=== PATIENT | female | born 1980 | race Two or more races ===

== ENCOUNTER → 2016-10-23 | Outpatient (CLI) | payer OTHER ==
[~2016-10-23] MED LIST: ACET50TA PO; IBUP80TA PO; PRENATAL VITAMIN; VALT500T PO; VITAPRTA PO
--- NOTE | 2016-10-23 10:19 | REP ---
LUMBAR SPINE SERIES: Five views. HISTORY: Low back pain. Comparison study March 07, 2013. FINDINGS: Lumbar vertebral body heights are preserved. Alignment is normal. There is no evidence of spondylolysis or spondylolisthesis. Pedicles and posterior elements are intact. Sacrum and SI joints are intact. Bowel gas pattern is unremarkable. Psoas margins are symmetric. An IUD is noted in the in the pelvis. IMPRESSION: Negative lumbar spine radiographs.
== END ==
LOC: M CLY 08:12
PROVIDERS: ATTEND Family Medicine
DX: M54.17 Radiculopathy, lumbosacral region (principal)

== ENCOUNTER → 2016-10-23 | Outpatient (REF) | payer OTHER ==
[2016-10-23 11:34] LABS: BASO % 0.5 % (0.0-1.0); EOS # 0.1 K/mm3 (0.0-0.50); EOS % 1.6 % (0.0-3.0); LARGE UNSTAINED CELL # 0.1 K/mm3 (0.0-0.4); LYMPH # 1.5 K/mm3 (1.5-4.5); LYMPH % 23.9 % (24.0-44.0); MEAN CORPUSCULAR HEMOGLOBIN 28.3 pg (27.0-33.0); MEAN CORPUSCULAR HGB CONC 32.2 g/dl (32.0-36.5); MONO # 0.3 K/mm3 (0.0-0.8); MONO % 4.9 % (0.0-5.0); NEUTROPHILS # 4.3 K/mm3 (1.8-7.7); NEUTROPHILS % 67.1 % (36.0-66.0); PLATELET COUNT, AUTOMATED 249 k/mm3 (150-450); WHITE BLOOD COUNT 6.4 K/mm3 (4.0-10.0)
[2016-10-23 11:36] LABS: FOLATE 16.9 NG/ML (>5.4); VITAMIN B12 LEVEL 302 PG/ML (247-911)
[2016-10-23 11:40] LABS: ALBUMIN 4.3 GM/DL (3.2-5.2); ALBUMIN/GLOBULIN RATIO 1.59 (1.00-1.93); ALKALINE PHOSPHATASE 101 U/L (45-117); ALT/SGPT 23 U/L (12-78); ANION GAP 8 MEQ/L (8-16); AST/SGOT 12 U/L (15-37); BILIRUBIN,TOTAL 0.4 MG/DL (0.2-1.0); BLOOD UREA NITROGEN 13 MG/DL (7-18); CALCIUM LEVEL 9.9 MG/DL (8.5-10.1); CARBON DIOXIDE LEVEL 27 MEQ/L (21-32); CHLORIDE LEVEL 105 MEQ/L (98-107); CHOLESTEROL LEVEL 247 MG/DL (<200); CREATININE FOR GFR 0.83 MG/DL (0.55-1.02); GLOMERULAR FILTRATION RATE > 60.0 (>60); GLUCOSE, FASTING 91 MG/DL (70-105); POTASSIUM SERUM 4.1 MEQ/L (3.5-5.1); SODIUM LEVEL 140 MEQ/L (136-145); TRIGLYCERIDES LEVEL 186 MG/DL (<150)
== END | disposition home or self-care (01) ==
LOC: M SFHCCLAY 07:57
PROVIDERS: ATTEND Family Medicine
DX: D64.9 Anemia, unspecified (principal); Z13.220 Encounter for screening for lipoid disorders; R63.5 Abnormal weight gain

== ENCOUNTER 2016-12-03 11:52 | Emergency (ER) | payer OTHER ==
[~2016-12-03] VITALS: Ht 162.6 cm; Wt 88.9 kg
[2016-12-03] MEDS ORDERED: LAMI1TAB7 PO (12:39)
[2016-12-03] MEDS ORDERED: KLON0.5T PO (12:39)
[2016-12-03] MEDS ORDERED: PRAZ2CAP PO (12:39)
[2016-12-03] MEDS ORDERED: ZOLO100T PO (12:39)
[2016-12-03] MEDS ORDERED: METOCLOPRAMIDE INJ 10MG/2ML VIAL (J2765) IV ONE ×2 (14:00→16:00)
[2016-12-03 15:16] VITALS: BP 124/73
== END 2016-12-03 16:36 | disposition home or self-care (01) ==
LOC: M ED 13:07
DX: R51 Headache (principal); F41.9 Anxiety disorder, unspecified; F43.10 Post-traumatic stress disorder, unspecified; F17.200 Nicotine dependence, unspecified, uncomplicated; Z88.8 Allergy status to other drugs, medicaments and biological substances; Z88.6 Allergy status to analgesic agent; Z88.0 Allergy status to penicillin; Z79.899 Other long term (current) drug therapy
CPT/HCPCS: 96374; 96376; 99282; J2765

== ENCOUNTER 2017-01-12 18:23 | Emergency (ER) | payer OTHER ==
[~2017-01-12] VITALS: Ht 162.6 cm; Wt 88.0 kg
[~2017-01-12 18:23] MED LIST changes: +KLON0.5T PO; +LAMI1TAB7 PO; +PRAZ2CAP PO; +ZOLO100T PO
[2017-01-12] MEDS ORDERED: ALPRAZolam 0.25 MG TAB PO ONE (19:00)
[2017-01-12 19:40] VITALS: BP 134/71
--- NOTE | 2017-01-13 07:25 | ECGEPIP ---
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
== END 2017-01-12 20:04 | disposition home or self-care (01) ==
LOC: M ED 19:07
DX: F41.1 Generalized anxiety disorder (principal); Z87.891 Personal history of nicotine dependence; Z88.0 Allergy status to penicillin; Z88.8 Allergy status to other drugs, medicaments and biological substances; Z79.899 Other long term (current) drug therapy

== ENCOUNTER → 2017-01-15 | Outpatient (CLI) | payer OTHER ==
--- NOTE | 2017-01-15 19:29 | ECHO ---
DATE OF PROCEDURE: 01/15/2017 REFERRING PHYSICIAN: Sunny Caldera MD INDICATION: Mitral valve prolapse. HEIGHT: 163 cm WEIGHT: 88 kg DIMENSIONS: IVS: 0.9 LV: 4.7 LVPW: 1.0 LA: 3.8 Aorta: 3.3 FINDINGS: The study is of good technical quality. Left ventricle is of normal size and systolic function with estimated ejection fraction (EF) 60 to 65%. Right ventricle appears normal. Both atria appear normal. The aortic valve was poorly visualized but grossly appears normal. Mitral, tricuspid and pulmonic valves appear normal. No pericardial effusion is noted. Inferior vena cava is normal size. Aortic root, aortic arch and abdominal aorta were well seen and appear normal. Doppler interrogation reveals no aortic stenosis or insufficiency. There is trace mitral insufficiency and trace tricuspid insufficiency. Calculated pulmonary artery pressure was within normal limits. Pulmonic valve is functionally competent. Mitral inflow pattern and tissue Doppler imaging of mitral annulus reveal normal diastolic function. CONCLUSIONS: 1. Study is of good technical quality. 2. Normal left ventricle (LV) size, systolic and diastolic function. 3. No significant valvular disease. 4. Normal central venous pressure and likely normal pulmonary artery pressure. COMMENTS: Subacute bacterial endocarditis (SBE) prophylaxis is not recommended. Essentially normal echocardiogram. MTDD
== END ==
LOC: M CARPUL 08:21
PROVIDERS: ATTEND Internal Medicine Cardiovascular Disease
DX: Z86.79 Personal history of other diseases of the circulatory system (principal)

== ENCOUNTER 2017-02-03 19:23 | Emergency (ER) | payer OTHER ==
[~2017-02-03] VITALS: Ht 162.6 cm; Wt 87.1 kg
[2017-02-03] MEDS ORDERED: NORCOTAB PO (21:12)
[2017-02-03] MEDS ORDERED: NORCO 5/325MG TABLET (BULK FOR ED) PO ONE (21:15)
[2017-02-03 22:10] VITALS: BP 144/76
--- NOTE | 2017-02-04 07:56 | REP ---
Clinical: Trauma. Technique: AP, lateral, bilateral oblique views of the right ankle. Comparison: 09/11/2016. Findings: Marked lateral soft tissue swelling consistent with inversion injury. No acute fracture or dislocation. Joint spaces and ankle mortise are intact. Impression: Marked soft tissue swelling. No acute fracture dislocation. Signed by Terrence Jones MD 02/04/2017 07:47 A
== END 2017-02-03 22:12 | disposition home or self-care (01) ==
LOC: M ED 21:21
DX: S82.91XA Unspecified fracture of right lower leg, initial encounter for closed fracture (principal); S93.401A Sprain of unspecified ligament of right ankle, initial encounter; W19.XXXA Unspecified fall, initial encounter; Y92.019 Unspecified place in single-family (private) house as the place of occurrence of the external cause; Y93.89 Activity, other specified; Y99.8 Other external cause status; Z87.891 Personal history of nicotine dependence; Z79.899 Other long term (current) drug therapy; Z88.0 Allergy status to penicillin; Z88.6 Allergy status to analgesic agent

== ENCOUNTER 2017-04-20 18:17 | Emergency (ER) | payer OTHER ==
[~2017-04-20] VITALS: Ht 162.6 cm; Wt 85.9 kg
[~2017-04-20 18:17] MED LIST changes: +NORCOTAB PO
[2017-04-20] MEDS ORDERED: ZIPR20CA13 PO (18:40)
[2017-04-20 18:55] LABS: MEAN CORPUSCULAR HEMOGLOBIN 29.8 pg (27.0-33.0); MEAN CORPUSCULAR HGB CONC 33.8 g/dl (32.0-36.5); MEAN CORPUSCULAR VOLUME 88.2 fl (80.0-96.0); RED CELL DISTRIBUTION WIDTH 12.8 % (11.5-14.5); WHITE BLOOD COUNT 6.8 K/mm3 (4.0-10.0)
[2017-04-20 19:15] LABS: CONTROL LINE HCG INT CTR LINE PRESENT
[2017-04-20 19:30] LABS: ALBUMIN 4.6 GM/DL (3.2-5.2); ALBUMIN/GLOBULIN RATIO 1.92 (1.00-1.93); ALKALINE PHOSPHATASE 99 U/L (45-117); ALT/SGPT 19 U/L (12-78); ANION GAP 9 MEQ/L (8-16); AST/SGOT 10 U/L (15-37); BILIRUBIN,DIRECT 0.1 MG/DL (0.0-0.2); BILIRUBIN,TOTAL 0.5 MG/DL (0.2-1.0); BLOOD UREA NITROGEN 14 MG/DL (7-18); CALCIUM LEVEL 10.4 MG/DL (8.5-10.1); CARBON DIOXIDE LEVEL 27 MEQ/L (21-32); CHLORIDE LEVEL 104 MEQ/L (98-107); CREATININE FOR GFR 0.92 MG/DL (0.55-1.02); GLOMERULAR FILTRATION RATE > 60.0 (>60); GLUCOSE, FASTING 90 MG/DL (70-105); POTASSIUM SERUM 4.1 MEQ/L (3.5-5.1); SODIUM LEVEL 140 MEQ/L (136-145)
[2017-04-20 20:32] LABS: METHADONE URINE NEGATIVE (NEGATIVE)
[2017-04-20 20:38] VITALS: BP 119/77
== END 2017-04-20 20:36 | disposition home or self-care (01) ==
LOC: M ED 18:17
DX: F31.89 Other bipolar disorder (principal); F41.9 Anxiety disorder, unspecified; I34.0 Nonrheumatic mitral (valve) insufficiency; Z79.899 Other long term (current) drug therapy; Z88.0 Allergy status to penicillin; Z88.6 Allergy status to analgesic agent

== ENCOUNTER → 2017-05-10 | Outpatient (REF) | payer OTHER ==
[~2017-05-10] MED LIST changes: +LATU40TA PO; +OXYC1TAB23 PO; +PRAZ1CAP PO; +TRAZ50TA11 PO; +WELLTAB38 PO; +ZIPR20CA13 PO; +ZOLO50TA PO
== END ==
LOC: M LAB REF 17:59
PROVIDERS: ATTEND Advanced Practice Midwife
DX: Z01.419 Encounter for gynecological examination (general) (routine) without abnormal findings (principal); Z11.51 Encounter for screening for human papillomavirus (HPV)

== ENCOUNTER → 2017-05-17 | Outpatient (CLI) | payer OTHER ==
--- NOTE | 2017-05-17 13:23 | REP ---
PELVIC ULTRASOUND: Real-time sonographic evaluation of the pelvis performed utilizing transabdominal and endovaginal technique. The urinary bladder measures 4.7 x 3.8 x 5.7 cm. Uterus measures 8.1 x 4.4 x 4.8 cm. Endometrial thickness is approximately 8 mm maximally. There is an IUD present in the lower uterine segment and cervical canal. Ovaries appear normal in size and echotexture, right ovary measuring 2.8 x 2.2 x 1.8 cm and left ovary 2.1 x 2.0 x 3.4 cm. There is no adnexal mass or free fluid. There is no evidence of ovarian torsion, with blood flow seen in each ovary with duplex Doppler evaluation, RI right ovary 0.46 and left ovary 0.65. There is no ovarian cyst. There is no free fluid. IMPRESSION: IUD is present and appears to be located in the lower uterine segment and cervical canal. Otherwise negative pelvic ultrasound. Signed by Sammy Blancas MD 05/17/2017 05:21 P
== END ==
LOC: M RAD 11:28
PROVIDERS: ATTEND Advanced Practice Midwife
DX: R10.2 Pelvic and perineal pain (principal); N92.0 Excessive and frequent menstruation with regular cycle; Z97.5 Presence of (intrauterine) contraceptive device

== ENCOUNTER → 2017-05-20 | Outpatient (CLI) | payer OTHER ==
[2017-05-20 14:39] LABS: MEAN CORPUSCULAR HEMOGLOBIN 29.6 pg (27.0-33.0); MEAN CORPUSCULAR HGB CONC 33.4 g/dl (32.0-36.5); MEAN CORPUSCULAR VOLUME 88.5 fl (80.0-96.0); WHITE BLOOD COUNT 5.2 K/mm3 (4.0-10.0)
== END ==
LOC: M LAB 13:35
PROVIDERS: ATTEND Advanced Practice Midwife
DX: R53.82 Chronic fatigue, unspecified (principal)

== ENCOUNTER 2017-05-22 13:27 | Emergency (ER) | payer OTHER ==
[~2017-05-22] VITALS: Ht 162.6 cm; Wt 80.4 kg
[~2017-05-22 13:27] MED LIST changes: -LATU40TA PO; -OXYC1TAB23 PO; -PRAZ1CAP PO; -TRAZ50TA11 PO; -WELLTAB38 PO; -ZOLO50TA PO
[2017-05-22] MEDS ORDERED: TRAZ50TA11 PO (13:39)
[2017-05-22] MEDS ORDERED: KETOROLAC 60 MG/2 ML VIAL (J1885) IM ONE (14:15)
[2017-05-22] MEDS ORDERED: NORCO, ANEXSIA 5/325MG TABLET (HYDROcodone/ACETAMINOPHEN) PO ONE (14:15)
[2017-05-22] MEDS ORDERED: OXYC1TAB23 PO (14:24)
[2017-05-22 14:50] VITALS: BP 143/67
== END 2017-05-22 14:52 | disposition home or self-care (01) ==
LOC: M ED 13:27
DX: N93.8 Other specified abnormal uterine and vaginal bleeding (principal); I34.1 Nonrheumatic mitral (valve) prolapse; F41.9 Anxiety disorder, unspecified; F43.10 Post-traumatic stress disorder, unspecified; Z79.899 Other long term (current) drug therapy
CPT/HCPCS: 81025; 96372; 99283; J1885

== ENCOUNTER 2017-05-27 14:26 | Emergency (ER) | payer OTHER ==
[~2017-05-27] VITALS: Ht 162.6 cm; Wt 81.6 kg
[~2017-05-27 14:26] MED LIST changes: +OXYC1TAB23 PO; +TRAZ50TA11 PO
[2017-05-27] MEDS ORDERED: ZOLO50TA PO (14:45)
[2017-05-27] MEDS ORDERED: NS 1,000 ML IV ONE (17:45)
[2017-05-27 18:08] LABS: BASO % 0.2 % (0.0-1.0); EOS # 0.1 K/mm3 (0.0-0.50); EOS % 1.9 % (0.0-3.0); LARGE UNSTAINED CELL # 0.1 K/mm3 (0.0-0.4); LYMPH # 1.4 K/mm3 (1.5-4.5); LYMPH % 26.6 % (24.0-44.0); MEAN CORPUSCULAR HEMOGLOBIN 30.1 pg (27.0-33.0); MEAN CORPUSCULAR HGB CONC 34.7 g/dl (32.0-36.5); MEAN CORPUSCULAR VOLUME 86.7 fl (80.0-96.0); MONO # 0.2 K/mm3 (0.0-0.8); MONO % 3.9 % (0.0-5.0); NEUTROPHILS # 3.3 K/mm3 (1.8-7.7); NEUTROPHILS % 65.5 % (36.0-66.0); PLATELET COUNT, AUTOMATED 271 k/mm3 (150-450); RED CELL DISTRIBUTION WIDTH 12.7 % (11.5-14.5); WHITE BLOOD COUNT 5.1 K/mm3 (4.0-10.0)
[2017-05-27 18:23] LABS: CONTROL LINE HCG INT CTR LINE PRESENT
[2017-05-27 18:32] LABS: ALT/SGPT 19 U/L (12-78); ANION GAP 9 MEQ/L (8-16); AST/SGOT 9 U/L (15-37); BLOOD UREA NITROGEN 10 MG/DL (7-18); CALCIUM LEVEL 9.7 MG/DL (8.5-10.1); CARBON DIOXIDE LEVEL 24 MEQ/L (21-32); CHLORIDE LEVEL 108 MEQ/L (98-107); CREATININE FOR GFR 0.74 MG/DL (0.55-1.02); GLOMERULAR FILTRATION RATE > 60.0 (>60); GLUCOSE, FASTING 82 MG/DL (70-105); POTASSIUM SERUM 4.3 MEQ/L (3.5-5.1); SODIUM LEVEL 141 MEQ/L (136-145)
[2017-05-27 18:33] LABS: ALBUMIN 4.2 GM/DL (3.2-5.2); ALKALINE PHOSPHATASE 74 U/L (45-117); BILIRUBIN,DIRECT 0.1 MG/DL (0.0-0.2); BILIRUBIN,TOTAL 0.3 MG/DL (0.2-1.0)
--- NOTE | 2017-05-27 18:52 | REP ---
Clinical: Headache and altered mental status . Comparison: 05/26/2009 . Findings: The ventricles, sulci, and cisterns are normal in position and appearance. Blancas-white differentiation is maintained. No acute intracranial hemorrhage, mass/mass effect, pathology or trauma/injury. No evidence for acute infarction. No extra-axial fluid collection. Calvarium is intact. Paranasal sinuses and mastoid air cells are clear. Impression: Normal noncontrast head CT. No evidence for acute intracranial pathology or trauma/injury. Signed by Terrence Jones MD 05/27/2017 06:43 P
--- NOTE | 2017-05-27 18:57 | REP ---
Clinical: Chest pain. Altered mental status . Comparison: 05/26/2009 . Technique: PA and lateral. Findings: The mediastinum and cardiac silhouette are normal. The lung ruiz are clear and without acute consolidation, effusion, or pneumothorax. The skeletal structures are intact and normal. Impression: 1. No acute cardiopulmonary process. Signed by Terrence Jones MD 05/27/2017 06:48 P
[2017-05-27 19:36] VITALS: BP 138/89
[2017-05-27 19:38] LABS: METHADONE URINE NEGATIVE (NEGATIVE)
--- NOTE | 2017-05-28 21:05 | ECGEPIP ---
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
== END 2017-05-27 19:52 | disposition home or self-care (01) ==
LOC: M ED 14:26
DX: R53.83 Other fatigue (principal); R53.81 Other malaise; I34.0 Nonrheumatic mitral (valve) insufficiency; F41.9 Anxiety disorder, unspecified; F43.10 Post-traumatic stress disorder, unspecified; Z79.899 Other long term (current) drug therapy

== ENCOUNTER 2017-06-02 20:06 | Emergency (ER) | payer OTHER ==
[~2017-06-02] VITALS: Ht 162.6 cm; Wt 79.5 kg
[2017-06-02 20:06] VITALS: BP 157/90
[~2017-06-02 20:06] MED LIST changes: +ZOLO50TA PO
[2017-06-02] MEDS ORDERED: WELLTAB38 PO (20:16)
[2017-06-02] MEDS ORDERED: LATU40TA PO (20:16)
[2017-06-02 22:03] LABS: MEAN CORPUSCULAR HEMOGLOBIN 29.1 pg (27.0-33.0); MEAN CORPUSCULAR HGB CONC 32.7 g/dl (32.0-36.5); WHITE BLOOD COUNT 5.2 K/mm3 (4.0-10.0)
[2017-06-02 22:32] LABS: ALBUMIN 4.2 GM/DL (3.2-5.2); ALKALINE PHOSPHATASE 78 U/L (45-117); ALT/SGPT 18 U/L (12-78); ANION GAP 9 MEQ/L (8-16); AST/SGOT 10 U/L (15-37); BILIRUBIN,DIRECT < 0.1 MG/DL (0.0-0.2); BILIRUBIN,TOTAL 0.3 MG/DL (0.2-1.0); BLOOD UREA NITROGEN 8 MG/DL (7-18); CALCIUM LEVEL 9.6 MG/DL (8.5-10.1); CARBON DIOXIDE LEVEL 26 MEQ/L (21-32); CHLORIDE LEVEL 107 MEQ/L (98-107); CREATININE FOR GFR 0.79 MG/DL (0.55-1.02); GLOMERULAR FILTRATION RATE > 60.0 (>60); GLUCOSE, FASTING 89 MG/DL (70-105); POTASSIUM SERUM 3.9 MEQ/L (3.5-5.1); SODIUM LEVEL 142 MEQ/L (136-145)
[2017-06-02 22:50] LABS: METHADONE URINE NEGATIVE (NEGATIVE)
== END 2017-06-03 00:28 | disposition home or self-care (01) ==
LOC: M ED 20:06
DX: R41.0 Disorientation, unspecified (principal); F41.9 Anxiety disorder, unspecified; G43.909 Migraine, unspecified, not intractable, without status migrainosus; F43.10 Post-traumatic stress disorder, unspecified; Z87.891 Personal history of nicotine dependence; Z88.0 Allergy status to penicillin; Z88.8 Allergy status to other drugs, medicaments and biological substances; Z79.899 Other long term (current) drug therapy

== ENCOUNTER 2017-06-28 13:59 | Emergency (ER) | payer OTHER ==
[~2017-06-28] VITALS: Ht 162.6 cm; Wt 78.2 kg
[~2017-06-28 13:59] MED LIST changes: +LATU40TA PO; +WELLTAB38 PO
[2017-06-28] MEDS ORDERED: ZOLO100T PO (14:10)
[2017-06-28] MEDS ORDERED: LAMI1TAB7 PO (14:10)
[2017-06-28] MEDS ORDERED: PRAZ1CAP PO (14:10)
[2017-06-28 15:42] LABS: BASO % 0.4 % (0.0-1.0); EOS # 0.1 10^3/uL (0.0-0.50); EOS % 1.3 % (0.0-3.0); IMMATURE GRANULOCYTE % 0.3 % (0-0); LYMPH # 1.5 10^3/uL (1.5-4.5); LYMPH % 22.2 % (24.0-44.0); MEAN CORPUSCULAR HEMOGLOBIN 29.5 pg (27.0-33.0); MEAN CORPUSCULAR HGB CONC 33.4 g/dl (32.0-36.5); MEAN CORPUSCULAR VOLUME 88.2 fl (80.0-96.0); MONO # 0.5 10^3/uL (0.0-0.8); MONO % 6.6 % (0.0-5.0); NEUTROPHILS # 4.8 10^3/uL (1.8-7.7); NEUTROPHILS % 69.2 % (36.0-66.0); PLATELET COUNT, AUTOMATED 275 10^3/uL (150-450); RED CELL DISTRIBUTION WIDTH 12.8 % (11.5-14.5)
[2017-06-28 17:06] VITALS: BP 138/94
== END 2017-06-28 17:12 | disposition home or self-care (01) ==
LOC: M ED 13:59
DX: Z32.01 Encounter for pregnancy test, result positive (principal); Z3A.00 Weeks of gestation of pregnancy not specified; I34.1 Nonrheumatic mitral (valve) prolapse; F43.10 Post-traumatic stress disorder, unspecified; F41.0 Panic disorder [episodic paroxysmal anxiety]; F33.9 Major depressive disorder, recurrent, unspecified; Z79.899 Other long term (current) drug therapy; Z88.8 Allergy status to other drugs, medicaments and biological substances; Z88.0 Allergy status to penicillin

== ENCOUNTER 2017-07-05 08:25 | Emergency (ER) | payer OTHER ==
[~2017-07-05] VITALS: Ht 162.6 cm; Wt 77.3 kg
[~2017-07-05 08:25] MED LIST changes: +PRAZ1CAP PO
[2017-07-05 08:45] VITALS: BP 139/69
== END 2017-07-05 09:46 | disposition home or self-care (01) ==
LOC: M ED 08:25
DX: J02.9 Acute pharyngitis, unspecified (principal); Z88.8 Allergy status to other drugs, medicaments and biological substances; Z88.0 Allergy status to penicillin

== ENCOUNTER → 2017-07-08 | Outpatient (CLI) | payer OTHER ==
[2017-07-08 15:00] LABS: BASO % 0.3 % (0.0-1.0); EOS # 0.2 10^3/uL (0.0-0.50); EOS % 2.3 % (0.0-3.0); IMMATURE GRANULOCYTE % 0.4 % (0-0); LYMPH # 1.5 10^3/uL (1.5-4.5); LYMPH % 19.5 % (24.0-44.0); MEAN CORPUSCULAR HEMOGLOBIN 29.2 pg (27.0-33.0); MEAN CORPUSCULAR VOLUME 88.6 fl (80.0-96.0); MONO # 0.5 10^3/uL (0.0-0.8); MONO % 5.7 % (0.0-5.0); NEUTROPHILS # 5.6 10^3/uL (1.8-7.7); NEUTROPHILS % 71.8 % (36.0-66.0); PLATELET COUNT, AUTOMATED 301 10^3/uL (150-450); WHITE BLOOD COUNT 7.8 10^3/uL (4.0-10.0)
[2017-07-08 15:31] LABS: VITAMIN B12 LEVEL 294 PG/ML
[2017-07-08 15:32] LABS: ALBUMIN/GLOBULIN RATIO 1.43 (1.00-1.93); ALKALINE PHOSPHATASE 84 U/L (45-117); ALT/SGPT 20 U/L (12-78); ANION GAP 7 MEQ/L (8-16); AST/SGOT 9 U/L (15-37); BILIRUBIN,TOTAL 0.2 MG/DL (0.2-1.0); BLOOD UREA NITROGEN 10 MG/DL (7-18); CALCIUM LEVEL 9.5 MG/DL (8.5-10.1); CARBON DIOXIDE LEVEL 25 MEQ/L (21-32); CHLORIDE LEVEL 107 MEQ/L (98-107); CREATININE FOR GFR 0.64 MG/DL (0.55-1.02); ERYTHROCYTE SEDIMENTATION RATE 16 mm/hr (0-20); GLOMERULAR FILTRATION RATE > 60.0 (>60); GLUCOSE, FASTING 74 MG/DL (70-105); SODIUM LEVEL 139 MEQ/L (136-145); TOTAL PROTEIN 6.8 GM/DL (6.4-8.2)
[2017-07-08 16:54] LABS: FOLATE 14.7 NG/ML
[2017-07-09 10:47] LABS: ALBUMIN % 64.7 % (55.8-66.1); GAMMA GLOBULIN % 8.6 % (11.1-18.8)
== END ==
LOC: M LAB 14:31
PROVIDERS: ATTEND Psychiatry & Neurology Neurology
DX: R41.82 Altered mental status, unspecified (principal)

== ENCOUNTER → 2017-07-09 | Outpatient (REF) | payer OTHER | LOC: M LAB REF 12:52 | PROVIDERS: ATTEND Advanced Practice Midwife | DX: Z34.81 Encounter for supervision of other normal pregnancy, first trimester (principal); Z3A.00 Weeks of gestation of pregnancy not specified ==

== ENCOUNTER 2017-08-07 18:56 | Emergency (ER) | payer OTHER ==
[~2017-08-07] VITALS: Ht 162.6 cm; Wt 83.6 kg
[2017-08-07 18:57] VITALS: BP 134/76
[2017-08-07] MEDS ORDERED: ZOFR4TAB3 PO (19:04)
== END 2017-08-07 21:50 | disposition left against medical advice (07) ==
LOC: M ED 18:56
DX: Z53.21 Procedure and treatment not carried out due to patient leaving prior to being seen by health care provider (principal)

== ENCOUNTER → 2017-10-10 | Outpatient (CLI) | payer OTHER | LOC: M RAD 15:16 | DX: Z34.82 Encounter for supervision of other normal pregnancy, second trimester (principal); Z36.89 Encounter for other specified antenatal screening; Z3A.18 18 weeks gestation of pregnancy | CPT/HCPCS: 76811 ==

== ENCOUNTER → 2017-10-13 | Outpatient (CLI) | payer OTHER | LOC: M LAB 12:05 | DX: Z36.9 Encounter for antenatal screening, unspecified (principal) ==

== ENCOUNTER 2017-10-28 12:28 | Emergency (ER) | payer OTHER | END 2017-10-28 15:34 | disposition left against medical advice (07) | LOC: M ED 12:28 | DX: Z53.21 Procedure and treatment not carried out due to patient leaving prior to being seen by health care provider (principal) ==

== ENCOUNTER → 2017-12-16 | Outpatient (CLI) | payer OTHER ==
[2017-12-16 15:52] LABS: BASO % 0.3 % (0.0-1.0); EOS # 0.1 10^3/uL (0.0-0.50); EOS % 0.8 % (0.0-3.0); HEMATOCRIT 31.2 % (36.0-47.0); HEMOGLOBIN 10.1 g/dl (12.0-16.0); IMMATURE GRANULOCYTE % 0.7 % (0-3.0); LYMPH # 1.5 10^3/uL (1.5-4.5); LYMPH % 17.5 % (24.0-44.0); MEAN CORPUSCULAR HEMOGLOBIN 29.2 pg (27.0-33.0); MEAN CORPUSCULAR HGB CONC 32.4 g/dl (32.0-36.5); MEAN CORPUSCULAR VOLUME 90.2 fl (80.0-96.0); MONO # 0.4 10^3/uL (0.0-0.8); NEUTROPHILS # 6.5 10^3/uL (1.8-7.7); NEUTROPHILS % 75.7 % (36.0-66.0); PLATELET COUNT, AUTOMATED 237 10^3/uL (150-450); RED BLOOD COUNT 3.46 10^6/uL (4.00-5.40); RED CELL DISTRIBUTION WIDTH 13.6 % (11.5-14.5); WHITE BLOOD COUNT 8.6 10^3/uL (4.0-10.0)
[2017-12-16 16:23] LABS: GLUCOSE CHALLENGE TEST 1 HOUR 130 MG/DL (LESS THAN 140)
[2017-12-17 08:44] LABS: RH ONLY RHOGAM 1 1
== END ==
LOC: M LAB 14:16
DX: O09.523 Supervision of elderly multigravida, third trimester (principal)
CPT/HCPCS: 82950

== ENCOUNTER → 2017-12-27 | Outpatient (CLI) | payer OTHER ==
[2017-12-27 07:51] LABS: GLUCOSE, FASTING 88 MG/DL (LESS THAN 95)
[2017-12-27 09:02] LABS: 1 HR GLUCOSE 142 MG/DL (LESS THAN 180)
[2017-12-27 10:10] LABS: 2 HR GLUCOSE 138 MG/DL (LESS THAN 155)
[2017-12-27 11:27] LABS: 3 HR GLUCOSE 51 MG/DL (LESS THAN 140)
== END ==
LOC: M LAB 07:01
DX: O09.522 Supervision of elderly multigravida, second trimester (principal)

== ENCOUNTER 2018-01-07 16:55 | Outpatient (CLI) | payer OTHER ==
[2018-01-07] MEDS: PERCOCET 5MG/325MG TAB PO (18:49)
== END 2018-01-07 18:46 | disposition home or self-care (01) ==
LOC: M LDO 16:55
DX: Z04.3 Encounter for examination and observation following other accident (principal); O26.893 Other specified pregnancy related conditions, third trimester; M53.3 Sacrococcygeal disorders, not elsewhere classified; M25.551 Pain in right hip; W10.9XXA Fall (on) (from) unspecified stairs and steps, initial encounter; Y92.89 Other specified places as the place of occurrence of the external cause; Y93.89 Activity, other specified; Y99.8 Other external cause status; Z3A.31 31 weeks gestation of pregnancy

== ENCOUNTER → 2018-02-03 | Outpatient (REF) | payer OTHER | LOC: M LAB REF 02-04 13:02 | DX: Z34.83 Encounter for supervision of other normal pregnancy, third trimester (principal) ==

== ENCOUNTER 2018-02-06 19:33 | Outpatient (CLI) | payer OTHER | END 2018-02-07 00:30 | disposition home or self-care (01) | LOC: M LDO 19:33 | DX: O47.03 False labor before 37 completed weeks of gestation, third trimester (principal); Z3A.35 35 weeks gestation of pregnancy | CPT/HCPCS: 59025 ==

== ENCOUNTER 2018-02-09 12:41 | Outpatient (CLI) | payer OTHER | END 2018-02-09 14:00 | disposition home or self-care (01) | LOC: M LDO 12:41 | DX: O26.893 Other specified pregnancy related conditions, third trimester (principal); N89.8 Other specified noninflammatory disorders of vagina; Z3A.35 35 weeks gestation of pregnancy | CPT/HCPCS: 59025 ==

== ENCOUNTER 2018-02-24 20:24 | Outpatient (CLI) | payer OTHER | END 2018-02-24 21:40 | disposition home or self-care (01) | LOC: M LDO 20:24 | DX: O47.1 False labor at or after 37 completed weeks of gestation (principal); Z3A.37 37 weeks gestation of pregnancy | CPT/HCPCS: 59025 ==

== ENCOUNTER 2018-02-25 03:21 | Inpatient (IN) | payer OTHER ==
[2018-02-25] MEDS ORDERED: OXYTOCIN 30 UNITS IN 0.9% NaCl 500ML IV BAG (J2590) As Ordered (03:54)
[2018-02-25 03:57] LABS: HEMATOCRIT 36.2 % (36.0-47.0); HEMOGLOBIN 12.3 g/dl (12.0-15.5); MEAN CORPUSCULAR HEMOGLOBIN 29.9 pg (27.0-33.0); MEAN CORPUSCULAR VOLUME 87.9 fl (80.0-96.0); PLATELET COUNT, AUTOMATED 220 10^3/uL (150-450); RED BLOOD COUNT 4.12 10^6/uL (4.00-5.40); RED CELL DISTRIBUTION WIDTH 14.7 % (11.5-14.5); WHITE BLOOD COUNT 8.3 10^3/uL (4.0-10.0)
[2018-02-25] MEDS: OXYTOCIN DRIP 30 UNITS in APPROPRIATE DILUENT 1 EA IV (05:17)
[2018-02-25] MEDS ORDERED: MEASLES,MUMPS,RUBELLA VACCINE INJ (MMR-II) (90707) SC (05:30)
[2018-02-25] MEDS ORDERED: MOM 30ML SUSPENSION UDC PO (05:30)
[2018-02-25] MEDS ORDERED: DOCUSATE SODIUM 100 MG CAP PO (05:30)
[2018-02-25] MEDS ORDERED: ANUSOL HC CREAM 30GM TOP (05:30)
[2018-02-25] MEDS: LIDOCAINE 1% MDV 20ML VIAL INFIL (05:30)
[2018-02-25] MEDS ORDERED: DIBUCAINE 1% OINTMENT 30GM TOP (05:30)
[2018-02-25] MEDS ORDERED: METHYLERGONOVINE MALEATE 0.2 MG TAB PO (05:30)
[2018-02-25] MEDS: ACETAMINOPHEN 500 MG TAB PO ×2 (06:21→15:00)
[2018-02-25] MEDS: PRENATAL VITAMINS CHEWABLE TABLET PO (07:56)
[2018-02-25 14:43] LABS: FETAL SCREEN PROF. 1 1
[2018-02-25] MEDS: RHOGAM 300 MCG (1500 IU) INJ (J2790) IM (15:03)
[2018-02-25] MEDS: IBUPROFEN 800 MG TAB PO (19:49)
[2018-02-26] MEDS: IBUPROFEN 800 MG TAB PO (04:43)
[2018-02-26] MEDS: PRENATAL VITAMINS CHEWABLE TABLET PO (07:31)
== END 2018-02-26 11:00 | disposition home or self-care (01) | DRG 560 ==
LOC: M LDO 03:21 → M LDI 03:33 → M OBS 05:58
PROVIDERS: Obstetrics & Gynecology; Pediatrics
PROC: 10E0XZZ Delivery of Products of Conception, External Approach (ICD-10-PCS; principal; 2018-02-25)
PROC: 0HQ9XZZ Repair Perineum Skin, External Approach (ICD-10-PCS; 2018-02-25)
DX: O69.81X0 Labor and delivery complicated by cord around neck, without compression, not applicable or unspecified (principal); Z3A.38 38 weeks gestation of pregnancy; Z37.0 Single live birth; O70.0 First degree perineal laceration during delivery

== ENCOUNTER 2018-03-23 14:02 | Emergency (ER) | payer OTHER | END 2018-03-23 15:25 | disposition home or self-care (01) | LOC: M ED 14:02 | DX: K04.7 Periapical abscess without sinus (principal); I34.1 Nonrheumatic mitral (valve) prolapse; Z88.0 Allergy status to penicillin; Z88.8 Allergy status to other drugs, medicaments and biological substances | CPT/HCPCS: 99282 ==

== ENCOUNTER 2018-03-28 10:49 | Emergency (ER) | payer OTHER ==
[2018-03-28] MEDS: NORCO, ANEXSIA 5/325MG TABLET (HYDROcodone/ACETAMINOPHEN) PO (12:18)
== END 2018-03-28 12:33 | disposition home or self-care (01) ==
LOC: M ED 10:49
DX: K04.7 Periapical abscess without sinus (principal); K02.9 Dental caries, unspecified; Z88.0 Allergy status to penicillin; Z88.8 Allergy status to other drugs, medicaments and biological substances
CPT/HCPCS: 99283

== ENCOUNTER 2018-09-30 12:08 | Emergency (ER) | payer OTHER ==
[~2018-09-30] VITALS: Ht 162.6 cm; Wt 85.9 kg
[2018-09-30 12:08] VITALS: BP 133/80
[~2018-09-30 12:08] MED LIST changes: -ACET50TA PO; +APAP325T4 PO; +CLEO300C2 PO; +DOXY-350 PO; +MAPA500T2 PO; +MOTR200T44 PO; +PRENTAB9 PO; +TRAM50TA2 PO; +TRAZ-160 PO; -TRAZ50TA11 PO; +TYLE325T5 PO; +VALT1TAB PO; +ZOFR4TAB14 PO
[2018-09-30 14:14] LABS: INFLUENZA A AMPLIFICATION NEGATIVE (NEGATIVE); INFLUENZA B AMPLIFICATION NEGATIVE (NEGATIVE)
[2018-09-30] MEDS ORDERED: AFRI0.0511 (14:40)
[2018-09-30] MEDS ORDERED: MUCI600T37 PO (14:40)
[2018-09-30] MEDS ORDERED: BENZ200C70 PO (14:40)
== END 2018-09-30 14:49 | disposition home or self-care (01) ==
LOC: M ED 12:08
DX: J06.9 Acute upper respiratory infection, unspecified (principal); J32.9 Chronic sinusitis, unspecified; Z87.891 Personal history of nicotine dependence; Z88.0 Allergy status to penicillin; Z88.8 Allergy status to other drugs, medicaments and biological substances; Z79.2 Long term (current) use of antibiotics

== ENCOUNTER 2019-01-27 05:50 | Emergency (ER) | payer OTHER ==
[~2019-01-27] VITALS: Ht 162.6 cm; Wt 88.6 kg
[~2019-01-27 05:50] MED LIST changes: +AFRI0.0511; +BENZ200C70 PO; +HYDR-3715 PO; +MUCI600T37 PO; -NORCOTAB PO
[2019-01-27 06:27] LABS: BASO % 0.2 % (0.0-1.0); EOS # 0.2 10^3/uL (0.0-0.50); EOS % 3.8 % (0.0-3.0); HEMATOCRIT 31.1 % (36.0-47.0); HEMOGLOBIN 10.1 g/dl (12.0-15.5); LYMPH % 35.2 % (24.0-44.0); MEAN CORPUSCULAR HEMOGLOBIN 29.3 pg (27.0-33.0); MEAN CORPUSCULAR HGB CONC 32.5 g/dl (32.0-36.5); MEAN CORPUSCULAR VOLUME 90.1 fl (80.0-96.0); MONO # 0.4 10^3/uL (0.0-0.8); MONO % 6.5 % (0.0-5.0); NEUTROPHILS % 54.1 % (36.0-66.0); PLATELET COUNT, AUTOMATED 291 10^3/uL (150-450); RED BLOOD COUNT 3.45 10^6/uL (4.00-5.40); WHITE BLOOD COUNT 5.5 10^3/uL (4.0-10.0)
[2019-01-27 06:53] LABS: BLOOD UREA NITROGEN 11 MG/DL (7-18); CALCIUM LEVEL 8.9 MG/DL (8.5-10.1); CARBON DIOXIDE LEVEL 25 MEQ/L (21-32); CHLORIDE LEVEL 111 MEQ/L (98-107); CREATININE FOR GFR 0.77 MG/DL (0.55-1.30); GLOMERULAR FILTRATION RATE > 60.0 (>60); GLUCOSE, FASTING 105 MG/DL (70-100); POTASSIUM SERUM 3.9 MEQ/L (3.5-5.1); SODIUM LEVEL 142 MEQ/L (136-145)
[2019-01-27 06:55] LABS: HCG, SERUM QUALITATIVE NEGATIVE (NEGATIVE)
--- NOTE | 2019-01-27 08:10 | REP ---
Clinical: Pelvic pain. IUD placement. Technique: Transabdominal pelvic ultrasound followed by transvaginal examination for better evaluation of the endometrium and adnexa with color Doppler evaluation of the ovaries. Findings: Heterogeneous anteverted uterus measures 10.5 x 5.2 x 5.6 cm. Endometrial complex is thickened to 23 mm and appears somewhat irregular but without focal discrete abnormality identified. IUD is not visualized. Bilateral ovaries are normal in appearance and vascularity without evidence for torsion. Right ovary measures 2.3 x 2.0 x 2.4 cm; RI = 0.35. Left ovary measures 3.8 x 3.0 x 3.2 cm; RI = (venous flow identified). Small amount of free fluid in the pelvis is nonspecific. Impression: 1. Heterogeneous anteverted uterus with heterogeneous thickened endometrial complex. Findings may be related to menstrual cycle. 2. Normal bilateral ovaries without torsion. 3. IUD not identified. Electronically Signed by Terrence Jones MD 01/27/2019 08:01 A
--- NOTE | 2019-01-27 08:22 | REP ---
Clinical: Evaluate for IUD. Technique: Two supine views of the abdomen and pelvis. Findings: Bowel gas pattern is nonspecific. No organomegaly. Skeletal structures are intact and normal. Phleboliths noted in the pelvis. No O IUD or foreign body identified. Impression: No foreign body or IUD identified. Electronically Signed by Terrence Jones MD 01/27/2019 08:13 A
[2019-01-27 08:44] VITALS: BP 124/66
== END 2019-01-27 09:00 | disposition home or self-care (01) ==
LOC: M ED 05:50
DX: N93.9 Abnormal uterine and vaginal bleeding, unspecified (principal); F43.10 Post-traumatic stress disorder, unspecified; Z88.0 Allergy status to penicillin; Z88.8 Allergy status to other drugs, medicaments and biological substances

== ENCOUNTER 2019-01-28 09:39 | Inpatient (IN) | payer OTHER ==
[~2019-01-28] VITALS: Ht 162.6 cm; Wt 92.7 kg
[2019-01-28] MEDS ORDERED: NS 1,000 ML IV ONE (10:00)
[2019-01-28 10:23] LABS: BASO % 0.4 % (0.0-1.0); EOS # 0.1 10^3/uL (0.0-0.50); EOS % 2.2 % (0.0-3.0); HEMATOCRIT 26.9 % (36.0-47.0); HEMOGLOBIN 8.6 g/dl (12.0-15.5); LYMPH # 1.6 10^3/uL (1.5-4.5); LYMPH % 29.2 % (24.0-44.0); MEAN CORPUSCULAR HEMOGLOBIN 29.8 pg (27.0-33.0); MEAN CORPUSCULAR VOLUME 93.1 fl (80.0-96.0); MONO # 0.3 10^3/uL (0.0-0.8); NEUTROPHILS # 3.3 10^3/uL (1.8-7.7); NEUTROPHILS % 61.5 % (36.0-66.0); PLATELET COUNT, AUTOMATED 291 10^3/uL (150-450); RED BLOOD COUNT 2.89 10^6/uL (4.00-5.40); WHITE BLOOD COUNT 5.4 10^3/uL (4.0-10.0)
[2019-01-28 10:51] LABS: BLOOD UREA NITROGEN 7 MG/DL (7-18); CALCIUM LEVEL 9.2 MG/DL (8.5-10.1); CARBON DIOXIDE LEVEL 24 MEQ/L (21-32); CHLORIDE LEVEL 112 MEQ/L (98-107); CREATININE FOR GFR 0.72 MG/DL (0.55-1.30); GLOMERULAR FILTRATION RATE > 60.0 (>60); GLUCOSE, FASTING 96 MG/DL (70-100); POTASSIUM SERUM 3.9 MEQ/L (3.5-5.1); SODIUM LEVEL 141 MEQ/L (136-145)
[2019-01-28 10:53] LABS: HCG, SERUM QUALITATIVE NEGATIVE (NEGATIVE)
[2019-01-28] MEDS: LR 1,000 ML IV SCH ×3 (11:10→20:17)
[2019-01-28] MEDS: CONJUGATED ESTROGENS 25 MG VIAL (J1410) IV SCH ×3 (11:59→20:32)
[2019-01-28 14:00] VITALS: BP 113/60
[2019-01-28 16:00] VITALS: BP 114/55
[2019-01-28] MEDS ORDERED: PROMETHAZINE INJ 25 MG/ML VIAL (J2550) IV PRN (16:15)
[2019-01-28 20:00] VITALS: BP 115/66
[2019-01-28 20:16] LABS: HEMOGLOBIN 6.9 g/dl (12.0-15.5)
[2019-01-28] MEDS: ONDANSETRON 4MG/2ML VIAL (J2405) IV PRN (20:16)
[2019-01-28] MEDS ORDERED: ACETAMINOPHEN 500 MG TAB PO ONE (20:30)
[2019-01-28] MEDS ORDERED: diphenhydrAMINE INJ 50MG/ML VIAL (J1200) IV ONE (20:30)
--- NOTE | 2019-01-28 23:15 | HPE ---
DATE OF ADMISSION: 01/28/2019 The patient is a 38-year-old 8, para 5-1-2-6 presented to the ED with last menstrual period started on 01/16/2019. She haS been bleeding continuously since. She reports that she had heavy menses and clots throughout the duration of this menstrual cycle which have become much worse in the last 3 days. Evaluation yesterday in the ER on 01/27/19 with a hemoglobin of 10.1, hematocrit 31.1, platelets 291. On presentation today her platelets were 291, hemoglobin 8.6, hematocrit 26.9. She denies any pain with this menstrual cycle. PAST MEDICAL HISTORY depression, abnormal Pap, childhood varicella. PAST SURGICAL HISTORY: Prior D and C for missed , left shoulder surgery for assist as a child. FAMILY HISTORY: Mitral valve prolapse and bipolar. SOCIAL HISTORY The patient is single, however, she does have a significant other. She is a nonsmoker. Denies alcohol and drug use. Reports caffeine two cups daily and no regular exercise. History of HSV II. She did have a Mirena IUD in place that was inserted in April of 2018. She had of ultrasound in the ER yesterday that showed no IUD with an x-ray followup with no IUD in pelvis. Heterogeneous anteverted uterus with heterogeneous thickened endometrial complex. Normal ovaries. Endometrial thickness is 23 mm and appears somewhat irregular, but without focal abnormality. No IUD. ALLERGIES: LATEX, AMOXICILLIN and ASPIRIN. CURRENT MEDICATIONS Ferrous gluconate 325 mg daily in the a.m. OBJECTIVE Currently temperature 99.1, pulse 111, respirations 20, BP is 115/66. She is 100% oxygen on room air. Her abdomen is soft and nontender. Repeat hgb 6.8 ASSESSMENT 38-year-old woman with severe menorrhagia, thickened endometrial complex. PLAN Per consult with Dr. Frankie Cagle the patient is to be admitted, IV Premarin has been started. Bleeding has not decreased since IV Premarin. Will transfuse the patient 3 units of RBCs. She is to be nothing by mouth (npo) after midnight. The plan will be to take her to the operating room tomorrow likely for D and C. I did review risks, benefits and alternatives with the patient. All of her questions have been answered. She has been consented for blood products. Dr. Cagle will be in to see the patient in the morning. [facility]
[2019-01-29] VITALS (7 sets, daily range): BP systolic 101–146; BP diastolic 58–79
[2019-01-29] MEDS: ONDANSETRON 4MG/2ML VIAL (J2405) IV PRN ×2 (00:16→04:24)
[2019-01-29] MEDS: CONJUGATED ESTROGENS 25 MG VIAL (J1410) IV SCH ×2 (00:29→04:24)
[2019-01-29] MEDS: LR 1,000 ML IV SCH ×2 (04:24→11:46)
[2019-01-29 09:06] LABS: HEMATOCRIT 30.5 % (36.0-47.0); MEAN CORPUSCULAR HEMOGLOBIN 30.6 pg (27.0-33.0); MEAN CORPUSCULAR HGB CONC 33.1 g/dl (32.0-36.5); MEAN CORPUSCULAR VOLUME 92.4 fl (80.0-96.0); PLATELET COUNT, AUTOMATED 215 10^3/uL (150-450)
[2019-01-29 09:07] LABS: HEMOGLOBIN 10.1 g/dl (12.0-15.5)
[2019-01-29] MEDS ORDERED: dexameTHASONE 4 MG/ML 1ML VIAL (J1100) As Ordered ONE (13:57)
[2019-01-29] MEDS ORDERED: ONDANSETRON 4MG/2ML VIAL (J2405) As Ordered ONE (13:57)
[2019-01-29] MEDS ORDERED: fentaNYL 100 MCG/2 ML INJECTION (J3010) As Ordered ONE (13:57)
[2019-01-29] MEDS ORDERED: MIDAZOLAM INJ 2 MG/2 ML VIAL (J2250) As Ordered ONE (13:57)
[2019-01-29] MEDS ORDERED: PROPOFOL 200 MG/20 ML VIAL As Ordered ONE (13:57)
[2019-01-29] MEDS ORDERED: LIDOCAINE 2% INJ 100 MG/5 ML SDV (FOR ANES.) As Ordered ONE (13:57)
[2019-01-29] MEDS ORDERED: fentaNYL 100 MCG/2 ML INJECTION (J3010) IV PRN (14:45)
[2019-01-29] MEDS ORDERED: ONDANSETRON 4MG/2ML VIAL (J2405) IV PRN (14:45)
[2019-01-29] MEDS ORDERED: LR 1,000 ML IV SCH (14:45)
[2019-01-29] MEDS ORDERED: ACETAMINOPHEN 500 MG TAB PO PRN (15:45)
[2019-01-29] MEDS ORDERED: IBUPROFEN 800 MG TAB PO PRN (15:45)
[2019-01-29] MEDS ORDERED: MAPA500C PO (17:42)
[2019-01-29] MEDS ORDERED: IBUP1TAB7 PO (17:42)
--- NOTE | 2019-01-30 07:38 | DSES ---
DATE OF ADMISSION: 01/28/2019 DATE OF DISCHARGE: 01/29/2019 38-year-old GAP5-1-2-6 female who presents to the ER with heavy bleeding. She is passing clots. This started with the onset of period on 01/16/2019. She has been bleeding ever since. Her hemoglobin steadily dropped after multiple evaluations. On the day of admission her hemoglobin was 8.6 grams per deciliter. She continued to have heavy bleeding. Of note she did have a Mirena IUD in place of April 2018 however IUD was no longer present on evaluation and likely spontaneously passed. HOSPITAL COURSE: On 01/28/2019 the patient was admitted to [facility]. An ultrasound showed a 2.3 cm endometrial lining with no focal mass in the endometrium. Patient was treated with IV Premarin 25 mg every 4 hours in order to stop bleeding. She also received anti-emetics for the side effect of the IV Premarin. Bleeding did not slow down appreciably overnight. A repeat hemoglobin that same day was 6.9 grams/dL. Patient was then transfused 3 units of packed red blood cells. Following day the patient was considered for surgery. On 01/29/2019, she underwent for a hysteroscopy, dilatation and curettage procedure. Findings were normal endometrial cavity and by that time the bleeding had begun to stop. The dilatation and curettage specimen was sent to pathology. Following the surgery the patient's hemoglobin was 10.1 grams/dL. She was stable and without pain and bleeding was minimal. Decision was made to discharge the patient home. ADMISSION DIAGNOSIS: 38-year-old with abnormal uterine bleeding, severe anemia. DISCHARGE DIAGNOSIS: 38-year-old with abnormal uterine bleeding, severe anemia. PROCEDURE: Hysteroscopy dilatation and curettage. DISPOSITION: The patient will followup with Dr. Elam in 1-2 weeks to discuss buttermaker continuous churn plans.
--- NOTE | 2019-01-30 07:41 | RO ---
DATE OF PROCEDURE: 01/29/2019 PREPROCEDURE DIAGNOSIS: Abnormal uterine bleeding. POSTPROCEDURE DIAGNOSIS: Abnormal uterine bleeding. PROCEDURE: Hysteroscopy, dilation and curettage. SURGEON: Dr. Frankie Cagle GLOVE BRUSHER: ANESTHESIA: General endotracheal. ESTIMATED BLOOD LOSS: 20 mL. FINDINGS: Normal appearing endometrial cavity. DESCRIPTION OF PROCEDURE: The patient was taken to the operating room where general endotracheal anesthesia was induced. She was prepped and draped in sterile fashion in the dorsal lithotomy position. A speculum was placed in the vagina. The anterior lip of the cervix was grasped with a tenaculum. The cervix was dilated with tapered dilators. A diagnostic hysteroscope using normal saline as a distention media was placed through the internal os. Visualization of the endometrial cavity revealed the findings noted above. Sharp curettage was performed. All instruments were removed. Bleeding was minimal after the procedure. The bladder was emptied of 100 mL of urine. Sponge and instrument counts were correct.
== END 2019-01-29 18:20 | disposition home or self-care (01) | DRG 517 ==
LOC: M ED 09:39 → M ED INP 10:42 → M PED 13:39
PROVIDERS: ADMIT Advanced Practice Midwife; ATTEND Specialist
PROC: 30233N1 Transfusion of Nonautologous Red Blood Cells into Peripheral Vein, Percutaneous Approach (ICD-10-PCS; 2019-01-28)
PROC: 0UDB7ZZ Extraction of Endometrium, Via Natural or Artificial Opening (ICD-10-PCS; principal; 2019-01-29 13:00)
DX: N92.0 Excessive and frequent menstruation with regular cycle (principal); D64.9 Anemia, unspecified; Z88.0 Allergy status to penicillin; Z88.6 Allergy status to analgesic agent

== ENCOUNTER 2019-09-30 22:26 | Emergency (ER) | payer OTHER ==
[~2019-09-30] VITALS: Ht 162.6 cm; Wt 80.9 kg
[2019-09-30 22:26] VITALS: BP 159/95
[~2019-09-30 22:26] MED LIST changes: +IBUP1TAB7 PO; +MAPA500C PO; -TRAZ-160 PO; +TRAZ-252 PO
[2019-09-30] MEDS ORDERED: clonazePAM 0.5 MG TAB PO ONE (23:00)
[2019-09-30] MEDS ORDERED: MICR1TAB18 PO (23:02)
[2019-09-30 23:38] LABS: HEMOGLOBIN 12.9 g/dl (12.0-15.5); MEAN CORPUSCULAR HEMOGLOBIN 28.9 pg (27.0-33.0); MEAN CORPUSCULAR HGB CONC 31.5 g/dl (32.0-36.5); MEAN CORPUSCULAR VOLUME 91.7 fl (80.0-96.0); PLATELET COUNT, AUTOMATED 345 10^3/uL (150-450); RED BLOOD COUNT 4.47 10^6/uL (4.00-5.40); WHITE BLOOD COUNT 6.9 10^3/uL (4.0-10.0)
[2019-10-01 00:15] LABS: ALBUMIN 3.7 GM/DL (3.2-5.2); ALT/SGPT 20 U/L (12-78); BILIRUBIN,DIRECT < 0.1 MG/DL (0.0-0.2); BILIRUBIN,TOTAL 0.2 MG/DL (0.2-1.0); BLOOD UREA NITROGEN 11 MG/DL (7-18); CALCIUM LEVEL 9.5 MG/DL (8.5-10.1); CARBON DIOXIDE LEVEL 24 MEQ/L (21-32); CHLORIDE LEVEL 109 MEQ/L (98-107); CK-MB VALUE MASS 1.5 NG/ML (<3.6); CPK CREATINE PHOSPHOKINASE 82 U/L (26-192); FREE T4 0.94 NG/DL (0.76-1.46); GLOMERULAR FILTRATION RATE > 60.0 (>60); GLUCOSE, FASTING 95 MG/DL (70-100); MAGNESIUM LEVEL 2.7 MG/DL (1.8-2.4); MB/CK RELATIVE INDEX 1.83 (< OR =4); PHOSPHORUS LEVEL 2.4 MG/DL (2.5-4.9); POTASSIUM SERUM 4.3 MEQ/L (3.5-5.1); SODIUM LEVEL 140 MEQ/L (136-145); TOTAL PROTEIN 6.9 GM/DL (6.4-8.2); TROPONIN I < 0.02 NG/ML (< 0.10)
--- NOTE | 2019-10-01 06:36 | ECGEPIP ---
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
--- NOTE | 2019-10-01 11:19 | REP ---
Clinical: Chest pain and shortness of breath . Comparison: 05/27/2017 . Technique: PA and lateral. Findings: The mediastinum and cardiac silhouette are normal. The lung ruiz are clear and without acute consolidation, effusion, or pneumothorax. The skeletal structures are intact and normal. Impression: 1. No acute cardiopulmonary process. Electronically Signed by Terrence Jones MD 10/01/2019 04:55 A
== END 2019-10-01 02:49 | disposition home or self-care (01) ==
LOC: M ED 22:26
DX: F41.1 Generalized anxiety disorder (principal)

== ENCOUNTER → 2020-08-03 | Outpatient (REF) | payer MEDICAID ==
[~2020-08-03] MED LIST changes: +MICR1TAB18 PO
== END ==
LOC: M SFHCWAGY 17:07
PROVIDERS: ATTEND Obstetrics & Gynecology
DX: Z12.4 Encounter for screening for malignant neoplasm of cervix (principal)

== ENCOUNTER 2020-11-07 17:09 | Emergency (ER) | payer MEDICAID, OTHER ==
[~2020-11-07] VITALS: Ht 162.6 cm; Wt 84.2 kg
--- OUTSIDE RECORDS SUMMARY | 2020-11-07 17:16 | CCD ---
Author Author [facility] Organization [facility] Address Unknown Phone Unavailable Care Team Providers Care Associate Professor Plant Pathology Name Role Phone Demar Hutchison Unavailable PROBLEMS Type Condition ICD9-CM Code [id number] Code Onset Dates Condition S tatus SNOMED Code Notes Problem Anxiety disorder, unspecified F41.9 Active 23 5459966 Problem Major depressive disorder, single episode, unspecified F32.9 Active 80014771 Problem 11 weeks gestation of Z3A.11 Active 80739013 Problem Other cervical disc degeneration at C4-C5 level M5 0.321 Active 06768751 Problem Anxiety F41.9 Active 58683530 Problem Post traumatic stress disorder (PTSD) F43.10 Ac tive 23966552 Problem Mitral valve prolapse I34.1 Active 882257419 Problem Obesity (BMI 30.0-34.9) E66.9 Active 55690748 7564285 ALLERGIES Allergen (clinical drug ingredient) Drug/Non Drug Allergy do cumented on EMR Reaction Allergy Type Onset Date Status ziprasidone Geodon([facility] Code:[address]-14) mental status changes Drug Allergy Active Amoxicillin Hives Drug Allergy Active aspirin Aspirin(ND Code:[address]-80) Hives Drug Allergy Active ENCOUNTERS from 1980 to 2020-09-05 Encounter Location Date Provider Diagnosis [address] [address] Aug Demar Hutchison Obesity (BMI 30.0-34.9) E66.9 ; Major de pressive disorder, single episode, unspecified F32.9 ; Anxiety disorder, unspecified F41.9 ; Post traumatic stress disorder (PTSD) F43.10 and Other cervical disc degeneration at C4-C5 level M50.321 IMMUNIZATIONS Vaccine Route Administration Date Status Influenza (18 yrs & older) Flublok IM Intramuscular Aug 18, 2018 Administered SOCIAL HISTORY Tobacco Use: Social History Observation Description Date Details (start date - stop date) Former Smoker Sex Assigned At : Social History Observation Description Sex Assigned At Unknown Language: Question Answer Notes Languages spoken: Divehi Jehovah'S Witness: Question Answer Notes Jehovah'S Witness 13 Taoist No roman catholic beliefs that would impact health care. Sexual Hx: Question Answer Notes Had sex in the last 12 months (vaginal, oral, or anal)? Yes Have you ever had an STD? No Prevention Strategies discussed: Other with Men only Use protection? No Drug and Alcohol Question Answer Notes Total Score: 0 Interpretation: No problems reported Alcohol Screening: Question Answer Notes Did you have a drink containing alcohol in the past year? No Points 0 Interpretation Negative BMI Care Goal Follow-Up Question Answer Notes Above Normal BMI Follow-Up Dietary management educatio n, guidance, and counseling Tobacco Use: Question Answer Notes Are you a: former smoker How long has it been since you last smoked? 1-5 years REASON FOR REFERRAL No Information VITAL SIGNS Weight 204.4 lbs Aug, 2019 Height 5'4.5" in Aug, BMI 34.54 kg/m2 Aug, Heart Rate 103 /min Aug, 2019 Respiratory Rate 16 /min Aug, Temperature 98.2 degrees Fahrenheit Aug, Oximetry 100ra Aug, Blood pressure systolic 153 mm Hg Aug, 2019 Blood pressure diastolic 94 mm Hg Aug, MEDICATIONS Medication SIG (Take, Route, Frequency, Duration) Notes Start Da te End Date Status Vitamin B Complex - as directed Orally Active Loestrin 1.5/30 (21) 1.5-30 MG-MCG 1 tablet Orally Once a day Dec, Active Vitamin C 500 MG as directed Orally Active Phentermine HCl 37.5 MG 1 tablet Orally Once a day for 30 day(s) Active PROCEDURES No Information RESULTS No Results REASON FOR VISIT Patient here from rescheduled ER f/u, she has had a rough year- she states she l ost her house last year and her 19 year old son unexpectedly. She is trying to stay positive MEDICAL (GENERAL) HISTORY Type Description Date Medical History PTSD Medical History Anxiety Medical History Post depression Medical History Migraines Surgical History D&C Surgical History Cyst removal- left shoulder Goals Section No Information Health Concerns No Information MEDICAL EQUIPMENT No Information MENTAL STATUS No Information FUNCTIONAL STATUS No Information ASSESSMENTS Encounter Date Diagnosis Assessment Notes Treatment Notes Treatm ent Clinical Notes Aug, Obesity (BMI 30.0-34.9) (ICD-10 - E66.9) Patient Educated with: FLU Vaccine, Inactivated.pdf (FLU Vaccine, Inactivated.pdf) Will cont to monitor and she would like to trial phentermine again and plan to recheck in about 3 months. Pt is agreeable. Aug, Major depressive disorder, s benjamin episode, unspecified (ICD-10 - F32.9) She is doing remarkably well so will cont with home journaling and declines need for meds or psych at this time. Pt agreeable. At least 30 minutes spent in face time with pt. Aug, Anxiety disorder, unspecified (ICD-10 - F41.9) Currently okay, declines meds at this time. Aug, Post traumatic stress disorder (PTSD) (ICD-10 - F43.10) Currently okay. Aug, Other cervical disc degeneration at C4-C 5 level (ICD-10 - M50.321) Just monitor for now. PLAN OF TREATMENT Medication Medication Name Sig Start Date Stop Date Phentermine HCl 37.5 MG 1 tablet Orally Once a day for 30 day(s) Treatment Notes Assessment Notes Clinical Notes Obesity (BMI 30.0-34.9) Patient Educated with: FLU V accine, Inactivated.pdf (FLU Vaccine, Inactivated.pdf) Will cont to monitor and she would like to trial phentermine again and plan to recheck in about 3 months. Pt is agreeable. Major depressive disorder, single episode, unspecified She is doing remarkably well so will cont with home journaling and declines need for meds or psych at this time. Pt agreeable. At least 30 minutes spent in face time with pt. Anxiety disorder, unspecified Currently okay, declines meds at this time. Post traumatic stress disorder (PTSD) Cu rrently okay. Other cervical disc degeneration at C4-C5 level Just monitor for now. Next Appt Details 3 Months Reason: Provider Name:Demar Hutchison, 03:30:00 PM, [address] [place], [address], Insurance Providers Payer Name Payer Address Payer Phone Insured Name Patient Relati onship to Insured Coverage Start Date Coverage End Date MEDICAID [employer] [address] [facility] [id number] MONICA CAO self
--- OUTSIDE RECORDS SUMMARY | 2020-11-07 17:16 | CCD ---
Author Author [facility] Organization [facility] Address Unknown Phone Unavailable Care Team Providers Care Game Room Attendant Name Role Phone Elam, Odette Unavailable PROBLEMS Type Condition ICD9-CM Code XLY10-IP Code Onset Dates Condition S tatus SNOMED Code Notes Problem Anxiety disorder, unspecified F41.9 Active 23 1340946 Problem Obesity (BMI 30.0-34.9) E66.9 Active 61695469 7850579 Problem 11 weeks gestation of Z3A.11 Active 64649761 Problem Major depressive disorder, single episode, unspecified F32.9 Active 07923368 Problem Anxiety F41.9 Active 42519191 Problem Post traumatic stress disorder (PTSD) F43.10 Ac tive 33478958 Problem Mitral valve prolapse I34.1 Active 919672287 ALLERGIES Allergen (clinical drug ingredient) Drug/Non Drug Allergy do cumented on EMR Reaction Allergy Type Onset Date Status ziprasidone Geodon([facility] Code:[address]-97) mental status changes Drug Allergy Active Amoxicillin Hives Drug Allergy Active aspirin Aspirin(ND Code:[address]-07) Hives Drug Allergy Active ENCOUNTERS from 1980 to 2020-08-20 Encounter Location Date Provider Diagnosis [facility] [address] [place] [id number] Jul, Odette Elam Normal gynecologic e xamination Z01.419 IMMUNIZATIONS Vaccine Route Administration Date Status Influenza (18 yrs & older) Flublok IM Intramuscular Aug 18, 2018 Administered SOCIAL HISTORY Tobacco Use: Social History Observation Description Date Details (start date - stop date) Former Smoker Sex Assigned At : Social History Observation Description Sex Assigned At Unknown Language: Question Answer Notes Languages spoken: Turkish Spiritism: Question Answer Notes Spiritism 13 Confucianist No restorationism beliefs that would impact health care. Sexual [...] FOR REFERRAL No Information VITAL SIGNS Weight 215 lbs Jul, Height 5'4.5" in Jul, BMI 36.33 kg/m2 Jul, Blood pressure systolic 130 mm Hg Jul, Blood pressure diastolic 84 mm Hg Jul, MEDICATIONS Medication SIG (Take, Route, Frequency, Duration) Notes Start Da te End Date Status Loestrin 1.5/30 (21) 1.5-30 MG-MCG 1 tablet Orally Once a day Dec, Active PROCEDURES No Information RESULTS Component Value Reference Range PAP REQUEST FOR SERVICE Reviewed date:08/16/2020 10:34:39 Interpretation: Performing Lab:[facility], [facility] [address] [address] , ,[place] [address] REASON FOR VISIT ANNUAL MEDICAL (GENERAL) HISTORY Type Description Date Medical History PTSD Medical History Anxiety Medical History Post depression Medical History Migraines Surgical History D&C Surgical History Cyst removal- left shoulder Goals Section No Information Health Concerns No Information MEDICAL EQUIPMENT No Information MENTAL STATUS No Information FUNCTIONAL STATUS No Information ASSESSMENTS Encounter Date Diagnosis Assessment Notes Treatment Notes Treatm ent Clinical Notes Jul, Normal gynecologic examination (ICD-10 - Z01.419 ) PLAN OF TREATMENT Medication Medication Name Sig Start Date Stop Date Loestrin 1.5/30 (21) 1.5-30 MG-MCG 1 tablet Orally Once a day Dec, Treatment Notes Test Name Order Date THIN PREP PAP 2020-08-20 Next Appt Details prn Reason: Provider Name:Demar Hutchison, 11:00:00 AM, [address], [place], [address], Insurance Providers Payer Name Payer Address Payer Phone Insured Name Patient Relati onship to Insured Coverage Start Date Coverage End Date MEDICAID [employer] [address] [facility] [id number] MONICA CAO self
--- OUTSIDE RECORDS SUMMARY | 2020-11-07 17:17 | CCD ---
Author Author [facility] Organization [facility] Address Unknown Phone Unavailable Support Name Relationship Address Phone ESTHER HINDS Next Of Kin Unknown MONICA CAO Next Of Kin [address] [place] [address] JOHNNY PACHECO Next Of Kin - CORBY JORGE [address] [facility]* [place] [address] [facility] Next Of Kin [address] [place] [address] [facility]* Next Of Kin [address] [place] [address] [facility] [place] [address] LACHO ATKINSON Next Of Kin [address] [facility] [address] [place] [address] [facility] Next [place] Kin ? [place] [address] [facility] [employer] Next Of Kin [address] [place] [address] UE Next Of Kin Unknown Unavailable LOWES Next Of Kin [address] [place] [address] [employer] Next Of Kin [address] [place] [address] ESTHER ATKINSON Next Of Kin [address] [facility] [address] [place] [address] [place] [address] Jeff CAO Next Of Kin [address] [place] [address] Lacho Atkinson ECON [address] [facility] [address] [place] [id number] Unavailable Care Team Providers Care Custodian Supervisor Name Role Phone Rabago, C Amira PA Unavailable Unavailable Rabago, C Amira PA Unavailable Unavailable Rabago, C Amira PA Unavailable Unavailable Rabago, C Amira PA Unavailable Unavailable Rabago, C Amira PA Unavailable Unavailable Rabago, C Amira PA Unavailable Unavailable Rabago, C Amira PA Unavailable Unavailable Rabago, C Amira PA Unavailable Unavailable Rabago, C Amira PA Unavailable Unavailable Rabago, C Amira PA Unavailable Unavailable Rabago, C Amira PA Unavailable Unavailable Rabago, C Amira PA Unavailable Unavailable Rabago, C Amira PA Unavailable Unavailable Rabago, C Amira PA Unavailable Unavailable Rabago, C Amira PA Unavailable Unavailable Rabago, C Amira PA Unavailable Unavailable Rabago, C Amira PA Unavailable Unavailable Rabago, C Amira PA Unavailable Unavailable Rabago, C Amira PA Unavailable Unavailable Rabago, C Amira PA Unavailable Unavailable Rabago, C Amira PA Unavailable Unavailable Rabago, C Amira PA Unavailable Unavailable Rabago, C Amira PA Unavailable Unavailable [facility], EKOLB Unavailable Unavailable TURRIN, ARTEMIO Unavailable Unavailable TURRIN, ARTEMIO Unavailable Unavailable TURRIN, ARTEMIO Unavailable Unavailable TURRIN, ARTEMIO Unavailable Unavailable Juan Carlos GREER Unavailable Unavailable HUIZENGA, D HAMILTON DO Unavailable Unavailable HUIZENGA, D [place]AM[place] DO Unavailable Unavailable HUIZENGA, D [place]AMILTON DO Unavailable Unavailable HUIZENGA, D [place]AMILTON DO Unavailable Unavailable HUIZENGA, D HAMILTON DO Unavailable Unavailable HUIZENGA, D HAMILTON DO Unavailable Unavailable HUIZENGA, D [place] DO Unavailable Unavailable HUIZENGA, D [place]AMILTON DO Unavailable Unavailable HUIZENGA, D [place]AMILTON DO Unavailable Unavailable HUIZENGA, D [place] DO Unavailable Unavailable HUIZENGA, D [place] DO Unavailable Unavailable HUIZENGA, D [place] DO Unavailable Unavailable HUIZENGA, D [place] DO Unavailable Unavailable HUIZENGA, D [place] DO Unavailable Unavailable HUIZENGA, D [place] DO Unavailable Unavailable HUIZENGA, D [place] DO Unavailable Unavailable HUIZENGA, D [place] DO Unavailable Unavailable HUIZENGA, D [place] DO Unavailable Unavailable HUIZENGA, D [place] DO Unavailable Unavailable HUIZENGA, D [place] DO Unavailable Unavailable HUIZENGA, D [place] DO Unavailable Unavailable HUIZENGA, Korin VILLASENOR DO Unavailable Unavailable HUIZENGA, Korin VILLASENOR DO Unavailable Unavailable HUIZENGA, Korin VILLASENOR DO Unavailable Unavailable HUIZENGA, Korin VILLASENOR DO Unavailable Unavailable HUIZENGA, Korin VILLASENOR DO Unavailable Unavailable HUIZENGA, Korin VILLASENOR DO Unavailable Unavailable HUIZENGA, Korin VILLASENOR DO Unavailable Unavailable HUIZENGA, Korin VILLASENOR DO Unavailable Unavailable HUIZENGA, Korin VILLASENOR DO Unavailable Unavailable HUIZENGA, Korin VILLASENOR DO Unavailable Unavailable HUIZENGA, Korin VILLASENOR DO Unavailable Unavailable HUIZENGA, Korin VILLASENOR DO Unavailable Unavailable HUIZENGA, Korin VILLASENOR DO Unavailable Unavailable HUIZENGA, Korin VILLASENOR DO Unavailable Unavailable HUIZENGA, Korin VILLASENOR DO Unavailable Unavailable HUIZENGA, Korin VILLASENOR DO Unavailable Unavailable HUIZENGA, Korin VILLASENOR DO Unavailable Unavailable HUIZENGA, Korin VILLASENOR DO Unavailable Unavailable HUIZENGA, Korin VILLASENOR DO Unavailable Unavailable HUIZENGA, Korin VILLASENOR DO Unavailable Unavailable HUIZENGA, Korin VILLASENOR DO Unavailable Unavailable HUIZENGA, Korin VILLASENOR DO Unavailable Unavailable HUIZENGA, Korin VILLASENOR DO Unavailable Unavailable HUIZENGA, Korin VILLASENOR DO Unavailable Unavailable HUIZENGA, Korin VILLASENOR DO Unavailable Unavailable HUIZENGA, Korin VILLASENOR DO Unavailable Unavailable HUIZENGA, Korin VILLASENOR DO Unavailable Unavailable HUIZENGA, Korin VILLASENOR DO Unavailable Unavailable HUIZENGA, Korin VILLASENOR DO Unavailable Unavailable HUIZENGA, Korin VILLASENOR DO Unavailable Unavailable HUIZENGA, Korin VILLASENOR DO Unavailable Unavailable HUIZENGA, Korin VILLASENOR DO Unavailable Unavailable HUIZENGA, Korin VILLASENOR DO Unavailable Unavailable HUIZENGA, Korin VILLASENOR DO Unavailable Unavailable HUIZENGA, Korin VILLASENOR DO Unavailable Unavailable HUIZENGA, Korin VILLASENOR DO Unavailable Unavailable HUIZENGA, Korin VILLASENOR DO Unavailable Unavailable HUIZENGA, Korin VILLASENOR DO Unavailable Unavailable HUIZENGA, Korin VILLASENOR DO Unavailable Unavailable HUIZENGA, Korin VILLASENOR DO Unavailable Unavailable HUIZENGA, Korin VILLASENOR DO Unavailable Unavailable HUIZENGA, Korin VILLASENOR DO Unavailable Unavailable HUIZENGA, Korin VILLASENOR DO Unavailable Unavailable HUIZENGA, Korin VILLASENOR DO Unavailable Unavailable HUIZENGA, D [place] DO Unavailable Unavailable HUIZENGA, D [place] DO Unavailable Unavailable HUIZENGA, D [place] DO Unavailable Unavailable HUIZENGA, D [place] DO Unavailable Unavailable HUIZENGA, D [place] DO Unavailable Unavailable HUIZENGA, D [place]MA[place] DO Unavailable Unavailable HUIZENGA, D [place] DO Unavailable Unavailable HUIZENGA, D [place] DO Unavailable Unavailable VENERUS, Maki JACKSON MD Unavailable Unavailable VENERUS, Maki JACKSON MD Unavailable Unavailable VENERUS, Maik JACKSON MD Unavailable Unavailable VENERUS, J MANISH LEROY Unavailable Unavailable VENERUS, J MANISH LEROY Unavailable Unavailable VENERUS, J MANISH LEROY Unavailable Unavailable VENERUS, J MANISH LEROY Unavailable Unavailable VENERUS, J MANISH LEROY Unavailable Unavailable VENERUS, Maki JACKSON MD Unavailable Unavailable Re-disclosure Warning The records that you are about to access may contain information from federally-assisted alcohol or drug abuse programs. If such information is present, then the following federally mandated warning applies: This information has been disclosed to you from records protected by federal confidentiality rules (42 CFR part 2). The federal rules prohibit you from making any further disclosure of this information unless further disclosure is expressly permitted by the written consent of the person to whom it pertains or as otherwise permitted by 42 CFR part 2. A general authorization for the release of medical or other information is NOT sufficient for this purpose. The Federal rules restrict any use of the information to criminally investigate or prosecute any alcohol or drug abuse patient.The records that you are about to access may contain highly sensitive health information, the redisclosure of which is protected by Article 27-F of the [facility] Public Health law. If you continue you may have access to information: Regarding HIV / AIDS; Provided by facilities licensed or operated by the [facility] Office of Mental Health; or Provided by the [facility] Office for People With Developmental Disabilities. If such information is present, then the following [facility] mandated warning applies: This information has been disclosed to you from confidential records which are protected by state law. State law prohibits you from making any further disclosure of this information without the specific written consent of the person to whom it pertains, or as otherwise permitted by law. Any unauthorized further disclosure in violation of state law may result in a fine or mcfp sentence or both. A general authorization for the release of medical or other information is NOT sufficient authorization for further disc losure. Allergies and Adverse Reactions Type Description Substance Reaction Status Data Source(s ) Drug allergy AMOXICILLIN AMOXICILLIN [facility] CLASS ASA (aspirin) ASA (aspirin) [facility] Family History Family Member Name Family Member Gender Family Member Status Date o f Status Description Data Source(s) Unknown Unknown Problem MEDENT ([facility], ) mitral valve prolapse Encounters Encounter Providers Location Date Indications Data Source(s ) Emergency Attender: JEREMY GREERConsultant: HAMILTON SOLO DO 11/06/2020 02:03:00 PM EST - 11/06/2020 04:20:00 PM EST [facility] Patient discharged. Outpatient [address] [facility], [facility] [address] 09/01/2020 12:00:00 AM EST eCW1 ([facility]) Outpatient [address] [facility] [address] 08/03/2020 12:00:00 AM EST eCW1 ([facility]) Emergency Attender: ARTEMIO CASEYConsultant: HAMILTON MARTINEZ DO 08/01/2020 08:16:00 PM EST - 08/01/2020 09:31:00 PM EST [facility] Patient discharged. Unknown [address] [facility] [address] 07/28/2020 12:00:00 AM EST eCW1 ([facility]) Emergency Attender: MANISH GU MDConsultant: HAMILTON VALLE DO 07/22/2020 12:25:00 PM EDT - 07/22/2020 04:04:00 PM EDT [facility] Patient discharged. Outpatient Attender: [facility] 03/01/2020 07:49:06 PM EDT [facility] [address] [place] [address] 02/16/2020 12:00:00 AM EDT [facility]1 [facility] [address] [place] [address] 12/28/2019 12:00:00 AM EDT eCW1 ([facility]) Outpatient Referrer: Amira ORANTES 10/14/2019 07:07:00 PM EST [facility] [address], [facility] [address] 10/01/2019 12:00:00 AM EST eCW1 ([facility]) Medications Medication Brand Name Start Date Product Form Dose Route Admi nistrative Instructions Pharmacy Instructions Status Indications Reaction Description Data Source(s) Loestrin 1.5/30 (21) 1.5-30 MG-MCG Loestrin 1.5/30 (21) 1.5- 30 MG-MCG 12/28/2019 12:00:00 AM EDT active 1 tablet eCW1 ([facility]) Loestrin 1.5/30 (21) 1.5-30 MG-MCG Loestrin 1.5/30 (21) 1.5- 30 MG-MCG 12/28/2019 12:00:00 AM EDT 1.0 {tablet} active Loestrin 1.5/30 (21) 1.5-30 MG-MCG eCW1 ([facility]) Loestrin 1.5/30 (21) 1.5-30 MG-MCG Loestrin 1.5/30 (21) 1.5- 30 MG-MCG 12/28/2019 12:00:00 AM EDT active 1 tablet eCW1 ([facility]) Loestrin 1.5/30 (21) 1.5-30 MG-MCG Loestrin 1.5/30 (21) 1.5- 30 MG-MCG 12/28/2019 12:00:00 AM EDT 1.0 {tablet} active Loestrin 1.5/30 (21) 1.5-30 MG-MCG eCW1 ([facility]) Loestrin 1.5/30 (21) 1.5-30 MG-MCG Loestrin 1.5/30 (21) 1.5- 30 MG-MCG 12/28/2019 12:00:00 AM EDT 1.0 {tablet} active Loestrin 1.5/30 (21) 1.5-30 MG-MCG eCW1 ([facility]) Insurance Providers Payer name Policy type / Coverage type Policy ID Covered alliance party ID Covered alliance party's relationship to goss Policy Goss Plan Information VENU [id number] SP [id number] [facility] COMMUNITY PLAN MCDO [id number] SP [id number] [facility] XIX [id number] 18 [id number] [facility] O [id number] S [id number] [facility] COMMUNITY PLAN MCDO [id number] SP [id number] [facility] MEDICARE COMPLETE - O/P [id number] 18 [id number] [facility] Health Maintenance Organization (HMO) [id number] Self [id number] [facility] MEDICARE COMPLETE -PHYS [id number] 18 [id number] [facility]-Medicaid [id number] ANSI-Medicaid [id number] [facility]-Medicaid [id number] [facility] Health Maintenance Organization (O) [id number] Self [id number] ANSI-Medicaid [id number] [facility] MEDICAID [id number] S [id number] [facility] Health Maintenance Organization (HMO) [id number] Self [id number] ANSI-Medicaid [id number] [facility] [id number] S [id number] SELF PAY UNAVAILABLE S UNAVAILA BLE [facility] [id number] SP [id number] [employer] [facility] Health Maintenance Organization (HMO) [id number] Self [id number] [facility] MCDO [id number] SP [id number] [facility] Health Maintenance Organization (HMO) [id number] Self [id number] [facility] Health Maintenance Organization ([facility] [id number] Self [id number] [facility] Health Maintenance Organization ([facility]) [id number] Self [id number] [place]() Workers Compensation [id number] Self [id number] [facility] Commercial [id number] Self [id number] [place]() Workers Compensation [id number] Self [id number] Kristie() Workers Compensation [id number] Self [id number] [facility] Medicaid F [id number] SELF [id number] [place]() Workers Compensation [id number] Self [id number] [place]() Workers Compensation [id number] Self [id number] [facility] [id number] SP [id number] SELF PAY ONLY [id number] SP [id number] [facility] Health Maintenance Organization ([facility]) Self [facility] [id number] SP [id number] MEDICAID [id number] SP [id number] SELF PAY UNAVAILABLE SP UNAVAILA BLE P UNAVAILABLE UNAVAILA BLE [facility] [id number] SP [id number] [facility] [id number] SP [id number] [place] [employer] P [id number] S [id number] [facility] [id number] SP [id number] KRISTIE [id number] SP [id number] OTHER WORKERS COMPENSATION [id number] SP [id number] [facility] BLUE [id number] SP [id number] Problems, Conditions, and Diagnoses Code Display Name Description Problem Type Effective Dates Data Source(s) M50.321 [id number] Other cervical disc degeneration at C4-C5 level Problem 09/01/2020 12:00:00 AM EST eCW1 ([facility]) R350 Frequency of micturition Frequency of micturition Diag nosis 08/01/2020 08:16:00 PM EST [facility] B373 Candidiasis of vulva and vagina Candidiasis of vulva a nd vagina Diagnosis 08/01/2020 08:16:00 PM [facility] R300 Dysuria Dysuria Diagnosis 08/01/2020 08:16:00 PM ES T [facility] [id number] Unspecified place in unspeci fied non-institutional (private) residence as the place of occurrence of the external cause Unspecified place in unspecified non-institutional (private) residence as the place of occurrence of the external cause Diagnosis 07/22/2020 12:25:00 PM EDT [facility] [id number] Fall (on) (from) other stairs and steps, initial encounter Fall (on) (from) other stairs and steps, initial encounter Diagnosis 07/22 12:25:00 PM EDT [facility] [id number] Personal history of nicotine dependence Personal history of nicotine dependence Diagnosis 07/22/2020 12:25:00 PM EDT [facility] [id number] Strain of muscle, fascia and tendon at n jessenia level, initial encounter Strain of muscle, fascia and tendon at neck level, initial encounter Diagnosis 07/22/2020 12:25:00 PM EDT [facility] M542 Cervicalgia Cervicalgia Diagnosis 07/22/2020 12:25:00 PM EDT [facility] Results ID Date Data Source [id number] 11/06/2020 02:03:00 PM [facility] 1 OrderSheet [facility] Emergency Department [address] [place] [address] Phone #: ext- [phone] 11/06/2020 13:55 Patient: MONICA CAO Sex: F : 1980 Age: 40yWEIGHT:79.3 kg (S) HEIGHT:64 inches (S) BMI:30.0ALLERGIES: PenicillinsCHIEF COMPLAINT: wants test, dysuriaDIAGNOSIS: CystitisLAB ORDERSOrder Description Priority Entered Acknowledged InitialedUrinalysis (Clean STAT 14:40 11/06/2020 15:02 Steele,Catch) Domenic Collazo R.N. P.A.-C;Culture, Urine STAT 14:40 11/06/2020 15:02 Steele,(Urine, Clean Domenic Collazo R.N.Catch) P.A.-C;HCG Serum Qual STAT 14:40 11/06/2020 14:48 Kiki Null RN P.A.-C;DIAGNOSTIC STUDY ORDERSOrder Description Priority Entered Acknowledged InitialedMEDICATION/IV/DRIP/FLUID ORDERSOrder Description Pr iority Entered Acknowledged InitialedGENERAL ORDERSOrder Description Priority Entered Acknowledged Initialed[Electronically signed by Domenic Ambriz P.A.-C (16:42 11/06/2020)][Electronically signed by Etelvina Dodson R.N. (16:42 11/06/2020)][Electronically locked by Etelvina Dodson R.N. (16:11/06/2020)] Name Value Range Interpretation Code Description Data Rosa rce(s) Supporting Document(s) ID Date Data Source [id number] 11/06/2020 02:03:00 PM EST [facility] 1 Medication Reconciliation Report [facility] Emergency Department [address] [place] [address] Phone #: ext- [phone] 11/06/2020 13:55 Patient: MONICA CAO Sex: F : 1980 Age: 40yWeight: 79.3 kgHeight/Length: 64 in.BMI: 30.0ALLERGIES: PenicillinsThe patient's Home Medications are listed below:THE FOLLOWING MEDICATIONS NEED TO BE RECONCILED: Control Pills 1 pill, dailyThe source(s) of the original Home Medication information:Not obtained.The following Medications were given to the patient in the Emergency Department:None.The following Medications were prescribed to the patient:Macrobid 100 mg capsule Take 1 capsule twice a day for 7 days -- Dispense 14 capsule. Refills: 0.Substitution permitted.Pharmacy - [facility] [phone] ; [place] [id number]. . -- Domenic Ambriz P.A.-C Name Value Range Interpretation Code Description Data Rosa rce(s) Supporting Document(s) ID Date Data Source [id number] 11/06/2020 02:03:00 PM [facility] 1 Medication Administration Record [facility] Emergency Department [address] [place] [address] Phone #: ext- [phone] 11/06/2020 13:55 Patient: MONICA CAO Sex: F : 1980 Age: 40yWeight: 79.3 kgHeight/Length: 64 inBMI: 30ALLERGIES: PenicillinsDate/Time Medication Administered Medication Ordered Name Value Range Interpretation Code Description Data [facility] Supporting Document(s) ID Date Data Source [id number] 11/06/2020 02:03:00 PM [facility] 1 General Instructions [facility] Emergency Department [address] [place] [address] Phone #: [phone] 11/06/2020 13:55 Patient: MONICA CAO Sex: F : 1980 Age: 40yAcute cystitis with hematuria.INSTRUCTIONSTake Tylenol (Acetaminophen) or Motrin (Ibuprofen) as needed for fever control. Take medicationaccording to label instructions.Drink plenty of fluids.(Recommend to utilize OTC Motrin and Tylenol to control inflammation and pain manageme nt.Recommend to follow the instructions on the bottle and not to exceed.).Warnings: GENERAL WARNINGS: Return or contact your physician immediately if your conditionworsens or changes unexpectedly, if not improving as expected, or if other problems arise.Prescription Medications:Macrobid 100 mg capsule Take 1 capsule twice a day for 7 days -- Dispense 14 capsule. Refills: 0.Substitution permitted.Pharmacy - [facility] [phone] ; [place] [address]. .Follow-up:Return to the emergency department as needed. Follow up with your healthcare provider in about twodays if not better. Call for an appointment.Understanding of the discharge instructions verbalized by patient. ADDITIONAL INFORMATIONBladder Infection, Female (Adult) 2 General Instructions [facility] Emergency Department [address] [place] [address] Phone #: ext- [phone] 11/06/2020 13:55 Patient: MONICA CAO Sex: F : 1980 Age: 40yUrine normally doesn't have any germs (bacteria) in it. But bacteria can get into the urinary tract fromthe skin around the rectum. Or they can travel in the blood from other parts of the body. Once theyare in your urinary tract, they can cause infection in these areas: The urethra (urethritis) The bladder (cystitis) The kidneys (pyelonephritis)The most common place for an infection is in the bladder. This is called a bladder infection. This isone of the most common infections in women. Most bladder infections are easily treated. They arenot serious unless the infection spreads to the kidney.The terms bladder infection, UTI, and cystitis are often used to describe the same thing. But they arenot always the same. Cystitis is an inflammation of the bladder. The most common cause of cystitis isan infection.SymptomsThe infection causes inflammation in the urethra and bladder. This causes many of the symptoms.The most common symptoms of a bladder infection are: Pain or burning when urinating Having to urinate more often than normal Urgent need to urinate 3 General Instructions [facility] Emergency Department [address] [place] [address] Phone #: ext- [phone] 11/06/2020 13:55 Patient: MONICA CAO Sex: F : 1980 Age: 40y Only a small amount of urine comes out Blood in urine Belly (abdominal) discomfort. This is often in the lower belly above the pubic bone. Cloudy urine Strong- or bad-smelling urine Unable to urinate (urinary retention) Unable to hold urine in (urinary incontinence) Fever Loss of appetite Confusion (in older adults)CausesBladder infections are not contagious. You can't get one from someone else, from a toilet seat, orfrom sharing a bath.The m ost common cause of bladder infections is bacteria from the bowels. The bacteria get onto theskin around the opening of the urethra. From there, they can get into the urine. Then they travel up tothe bladder, causing inflammation and infection. This often happens because of: Wiping incorrectly after urinating. Always wipe from front to back. Bowel incontinence Procedures such as having a catheter put in Older age Not emptying your bladder. This can give bacteria a chance to grow in your urine. Fluid loss (dehydration) Constipation Having sex Using a diaphragm for controlTreatment 4 General Instructions [facility] Emergency Department [address] [place] [address] Phone #: ext- [phone] 11/06/2020 13:55 Patient: [id number] Sex: F : 1980 Age: 40yBladder infections are diagnosed by a urine test and urine culture. They are treated with antibiotics.They often clear up quickly without problems. Treatment helps prevent a more serious kidneyinfection.MedicinesMedicines can help in the treatment of a bladder infection: Take antibiotics until they are used up, even if you feel better. It's important to finish them to make sure the infection has cleared. You can use acetaminophen or ibuprofen for pain, fever, or discomfort, unless another medicine was prescribed. If you have long-term (chronic) liver or kidney disease, talk with your healthcare provider before using these medicines. Also talk with your provider if you've ever had a stomach ulcer or GI (gastrointestinal) bleeding, or are taking blood-thinner medicines. If you are given phenazopydridine to reduce burning with urination, it will make your urine a bright orange color. This can stain clothing.Care and preventionThese self-care steps can help prevent future infections: Drink plenty of fluids. This helps to prevent dehydration and flush out your bladder. Do this unless you must restrict fluids for other health reasons, or your healthcare provider told you not to. Clean yourself correctly after going to the bathroom. Wipe from front to back after using the toilet. This helps prevent the spread of bacteria. Urinate more often. Don't try to hold urine in for a long time. Wear loose-fitting clothes and cotton underwear. Don't wear tight-fitting pants. Improve your diet and prevent constipation. Eat more fresh fruits and vegetables, and fiber. Eat less junk foods and fatty foods. Don't have sex until your symptoms are gone. Don't have caffeine, alcohol, and spicy foods. These can irritate your bladder. Urinate right after you have sex to flush out your bladder. If you use control pills and have frequent bladder infections, discuss it with your healthcare provider.Follow-up care 5 General Instructions [facility] Emergency Department [address] [place] [address] Phone #: ext- [phone] 11/06/2020 13:55 Patient: MONICA CAO Sex: F : 1980 Age: 40yCall your healthcare provider if all symptoms are not gone after 3 days of treatment. This is especiallyimportant if you have repeat infections.If a culture was done, you will be told if your treatment needs to be changed. If directed, you cancall to find out the results.If X-rays were done, you will be told if the results will affect your treatment.Call [phone] if any of the following occur: Trouble breathing Hard to wake up or confusion Fainting (loss of consciousness) Fast heart rateWhen to get medical adviceCall your healthcare provider right away if any of these occur: Fever of 100.4F (38.0C) or higher, or as directed by your healthcare provider Symptoms are not better after 3 days of treatment Back or belly pain that gets worse Repeated vomiting, or unable to keep medicine down Weakness or dizziness Vaginal discharge Pain, redness, or swelling in the outer vaginal area (labia) [id number] [employer]. [address] [place] [address]. All rights reserved. This information is not intended as asubstitute for professional medical care. Always follow your healthcare professional's instructions.Blood in the Urine 6 General Instructions [facility] Emergency Department [address] [place] [address] Phone #: ext- [phone] 11/06/2020 13:55 Patient: MONICA CAO Sex: F : 1980 Age: 40yBlood in the urine (hematuria) has many possible causes. If it occurs after an injury (such as a caraccident or fall), it is most often a sign of bruising to the kidney or bladder. Common causes of bloodin the urine include urinary tract infections, kidney stones, inflammation, tumors, or certain otherdiseases of the kidney or bladder. Menstruation can cause blood to appear in the urine sample, but itis not coming from the urinary tract.If only a tiny (trace) amount of blood is present, it will show up on the urine test, even though the urinemay be yellow and not pink or red. This may occur with any of the above conditions, as well as heavyexercise or high fever. In this case, your healthcare provider may want to repeat the urine test onanother day. This will show if there is still blood in the urine. If there is, then other tests can be doneto find out the cause.Home careFollow these home care guidelines: If your urine does not look bloody (pink, brown, or red) then you don't need to restrict your activity in any way. If you can see blood in your urine, rest and don't do any strenuous activity until your next exam. Don't use aspirin, blood thinners, or anti-platelet or anti-inflammatory medicines. These include ibuprofen and naproxen. These thin the blood and may increase bleeding. Call yo healthcare provider to talk about using these medicines.Follow-up care 7 General Instructions [facility] Emergency Department [address] [place] [address] Phone #: tao- [phone] 11/06/2020 13:55 Patient: MONICA CAO Sex: F : 1980 Age: 40yFollow up with your healthcare provider, or as advised. If you were injured and had blood in yoururine, you should have a repeat urine test in 1 to 2 days. Contact your provider for this test.A radiologist will review any X-rays that were taken. You will be told of any new findings that mayaffect your care.When to seek medical adviceCall your healthcare provider right away if any of these occur: Bright red blood or blood clots in the urine (if you did not have this before) Weakness, dizziness or fainting New groin, belly, or back pain Fever of 100.4F (38C) or higher, or as directed by your provider Repeated vomiting Bleeding from the nose or gums or easy bruising [employer]. [address] [place] [address]. All rights reserved. This information is not intended as asubstitute for professional medical care. Always follow your healthcare professional's instructions. You have been given the following additional information: Bladder Infection, Female (Adult) Hematuria(Electronically signed by Domenic Ambriz P.A.-C 11/06/2020 16:42) Name Value Range Interpretation Code Description Data Rosa rce(s) Supporting Document(s) ID Date Data Source [id number] 11/06/2020 02:03:00 PM EST [facility] 1 Clinical Report - Nurses [facility] Emergency Department [address] [place] [address] Phone #: [phone]- [phone] 11/06/2020 13:55 Patient: MONICA CAO Sex: F : 1980 Age: 40yTRIAGEArrived by private vehicle. Historian: patient.Triage time: 13:56 11/06/2020. Acuity: LEVEL 4.Chief Complaint: URGENCY and FREQUENCY.13:56 11/06/20. Alert. No acute distress.Onset. (4 days ago).SEPSIS SCREEN: SIRS SCREEN NEGATIVE: heart rate greater than 90. SEPSIS SCREEN NEGATIVE.Possible sources of infection: UTI. --14:03 11/06/20 Kiki Null RN13:56 11/06/20. BP: 160/96. MAP: 117. HR: 97. RR: 16. O2 saturation: 100%. Temp: 98 F. Pain levelnow: 0/10. --14:03 11/06/20 Kiki Null RN.Weight: 79.3 kg stated. Height/Length: 64 inches Per Patient. BMI: 30. --13:56 11/06/20 Kiki Null RN.MedicationsBirth Control Pills 1 pill, daily. --13:58 11/06/20 Kiki Null RN.AllergiesPenicillins.(hives) --13:59 11/06/20 Kiki Null RN.PROBLEMS:no known problems.ADDITIONAL SURGERIES:Dilatation Curettage. --13:59 11/06/20 Kiki Null RN.Yhiwfbs12:56 11/06/20.PAST MEDICAL HX: Immunizations: up-to-date. Last normal menstrual period- . Uses birthcontrol pills.SOCIAL HX: Never smoker. No alcohol use or drug use. She was offered HIV testing but declined andhepatitis C testing but declined. She has not traveled outside the [place]Infectious disease exposure: No infectious disease exposure. (Negative COVID-19 screen). Patient is not aknown carrier of tuber culosis, hepatitis, HIV, MRSA or VRE. Patient is not a known carrier of CRE. 2 Clinical Report - Nurses [facility] Emergency Department [address] [place] [address] Phone #: ext- [phone] 11/06/2020 13:55 Patient: MONICA CAO Sex: F : 1980 Age: 40y SELF HARM ASSESSMENT: Self harm assessment was performed. The patient answered "no" to the question(s) "Do you have thoughts of harming or killing yourself?" and "Have you recently had thoughts about harming or killing others?". ABUSE ASSESSMENT: Abuse assessment. The patient had positive responses to the question(s) "Do you feel safe in your home?" (yes). Abuse denied. No report of abuse. NUTRITIONAL RISK ASSESSMENT: The nutritional risk assessment revealed no deficiencies. FUNCTIONAL ASSESSMENT: Functional assessment: no impairments no huber. LEARNING NEEDS ASSESSMENT: The learning needs assessment revealed no barriers. FALL RISK ASSESSMENT: Fall risk assessment completed. No risk factors identified. SKIN INTEGRITY ASSESSMENT: Skin integrity risk assessment completed. No skin integrity risk identified. --14:03 11/06/20 Kiki Null RN. Interventions 13:56 11/06/20. To treatment room. Ambulatory by hospital staff. to room 7. --14:03 11/06/20 Kiki Null RN.PHYSICAL ASSESSMENTAmbulatory to room.GENERAL / NEURO / PSYCH: Alert. Oriented X 4. Appears anxious and in distress.HEENT: Mucous membranes are pink.RESPIRATORY: Respirations not labored. Breath sounds within normal limits.CVS: Normal heart rate and rhythm. Capillary refill less than 2 seconds.GI / : Abdomen soft and nontender. Bowel sounds within normal limits. She has had frequency ofurination. Urgency of urination.SKIN: Skin is warm and dry. --14:09 11/06/20 Frank Hoffmann RN.NURSING PROGRESS NOTES13:56 11/06/20. Patient gowned. Two patient identifiers checked. Call light placed in reach. Bedplaced in lowest position. Brakes of bed on. Patient ready for evaluation- PA notified. --14:03 11/06/20Kiki Null RN late entry - 14:47 11/06/20. Patient ID band checked for patient name and birthdate: patient confirmed. Instructions provided to collect clean catch urine and patient verbalized understanding. Clean catch urine collected; sample sent to lab for urinalysis. Specimen labeled in the presence of the patient. --15:02 11/06/20 Vale Palmer R.N.DISPOSITION / DISCHARGE late entry - 16:20 11/06/20. 3 Clinical Report - Nurses [facility] Emergency Department [address] [place] [address] Phone #: ext- [phone] 11/06/2020 13:55 Patient: MONICA CAO Sex: F : 1980 Age: 40y Departure time: 16:20 11/06/2020. Condition at departure: improved. No learning barriers present. Discharge instructions provided and reviewed with the patient. Reviewed warnings. Reviewed medication(s) side effects, precautions, dosing and course information. Prescription(s) sent electronically to pharmacy ([email or web address]). Reviewed referral to a primary care physician for followup. Patient verbalized understanding. Written instructions provided in Maldivian. The patient was discharged by the physician assistant restaurant general manager. She was discharged home and unaccompanied at time of discharge. She left ambulatory and via private vehicle. Patient driving. --16:42 11/06/20 Etelvina Dodson R.N. 16:40 11/06/20. BP: 156/98. MAP: 117. HR: 83. RR: 16. O2 saturation: 100% on room air. Temp: 98.3 F (oral). Pain level now: 11/02. --16:42 11/06/20 Etelvina Dodson R.N.Locked/Released at 11/06/2020 16:42 by Etelvina Dodson R.N. Name Value Range Interpretation Code Description Data Rosa rce(s) Supporting Document(s) ID Date Data Source [id number] 11/06/2020 02:03:00 PM [facility] 1 Clinical Report - Physicians/Mid Levels [facility] Emergency Department [address] [place] [address] Phone #: ext- [phone] 11/06/2020 13:55 Patient: MONICA CAO Sex: F : 1980 Age: 40y Time Seen: 14:40 11/06/2020; initial patient contact, initial documentation. Arrived- By private vehicle. Historian- patient. Disposition decision: 16:11 11/06/2020.HISTORY OF PRESENT ILLNESS Chief Complaint: DYSURIA. WANTS TEST. This started about 4 days ago and still present. The symptoms are described as mild. No abdominal pain, pelvic pain, vaginal pain, flank pain or hematuria. She has had irregular periods and urgency of urination. The patient has had urinary frequency. control measures utilized. (Pt sts that she had noted urinary frequency and urgency. Sts she took HPT today and was questionable (+). Pt has no vaginal complaints of bleeding or discharge. Pt would like a test and possible UTI.). Similar symptoms previously. None. Recent medical care: Not recently seen/assessed.REVIEW OF SYSTEMSNo nausea, vomiting, diarrhea, black stools or headache. No fever, chills, anorexia, eye discomfort orsore throat. No cough, difficulty breathing, chest pain, skin rash or enlarged lymph nodes. No joint pain.All other systems reviewed and are negative.PAST HISTORYSee nurses notes. Problems: Mitral Valve Prolapse. Heart Disease. Cervical Strain. Gastroesophageal Reflux Disease. Muscle Strain, Upper Extremity. Vomiting. Vaginitis. UTI - Urinary Tract Infection. Other Disease. Sprain. Additional Surgeries: Dilatation Curettage. 2 Clinical Report - Physicians/Mid Levels [facility] Emergency Department [address] [place] [address] Phone #: ext- [phone] 11/06/2020 13:55 Patient: MONICA CAO Sex: F : 1980 Age: 40y Medications: Control Pills 1 pill, daily. Allergies: Penicillins.(hives).SOCIAL HISTORYNever smoker. No alcohol use or drug use.ADDITIONAL NOTESThe nursing notes have been reviewed.PHYSICAL EXAMAppearance: Alert. Oriented X3. No acute distress.ENT: Voice normal.CVS: Normal heart rate and rhythm. No JVD present. Pulses normal. Capillary refill normal. Strongperipheral pulses. Heart sounds normal. Pulses: right radial 2+; left radial 2+; right dorsalis pedis 2+; leftdorsalis pedis 2+; right posterior tibial 2+; left posterior tibial 2+.Respiratory: Chest normal on inspection. No respiratory distress. Unlabored respirations. Lungs clear.Good chest movement. Breath sounds normal and equal.Abdomen: Normal inspection. Soft and nontender. Bowel sounds normal. No distention.Skin: Skin warm and dry.Extremities: No lower extremity edema. Extremities nontender. No calf tenderness. No lower extremityedema.Neuro: Awake. Alert. Mood/affect normal. Speech normal. No motor deficit. No sensory deficit.Psych: Cognition normal. Thought process and content normal. Insight and judgement normal.LABS, X-RAYS, AND EKGLaboratory Tests: Ur inalysis: (VANESSA: 11/06/2020 14:00) ( MsgRcvd 11/06/2020 15:03) Final results Test Result Flag Units (Reference) URINALYSIS URINALYSIS SOURCE R COLOR yellow (NORMAL: Yello CLARITY clear (NORMAL: Clear SPEC GRAVITY 1.020 (1.001 - 1.030 pH 6 (5 - 9) GLUCOSE NORM (NORMAL: Negat BILIRUBIN NEG (NORMAL: Negat KETONE NEG (NORMAL: Negat PROTEIN NEG (NORMAL: Negat NITRITE NEG (NORMAL: Negat BLOOD 150 A (NORMAL: Negat LEUK EST 25 (NORMAL: Negat UROBILINOGEN NOR (less than 1.0 MICROSCOPIC See Below WBC 0 - 1 (NORMAL: NONE 3 Clinical Report - Physicians/Mid Levels [facility] Emergency Department [address] [place] [address] Phone #: ext- [phone] 11/06/2020 13:55 Patient: MONICA CAO Sex: F : 1980 Age: 40y RBC 0 - 1 (NORMAL: NONE EPITHELIAL FEW (NORMAL: NONE BACTERIA Trace (NORMAL: NONE Beta-HCG, Qual Serum: (VANESSA: 11/06/2020 14:47) ( MsgRcvd 11/06/2020 15:42) Final results Test Result Flag Units (Reference) HCG SERUM QUAL NEGATIVE (NORMAL: NEGAT HCG SERUM QL REENTER NEGATIVE (NORMAL: NEGAT { KIT LOT # [id number] ){ KIT EXP DATE 04.22.22 ){ PROCEDURAL CONTROL VALID ).PROGRESS AND PROCEDURESCourse of Care: VSS, NAD, AOx3, interacting well and appropriately, no use of accessory muscle, able tospeak full sentences, stable, non-toxic looking. Enter room and pt lying peacefully in bed in NAD. Patient stable. Denies any new issues, concerns, or complaints. Pt sts that she had UTI s/s and decided to take a HPT and ? positive. Pt sts she is "freaking out" and would like a test and test for UTI. no feves. PE dmeos NV itnac tb/l UE and LE. Will obtain labs for furhter eval. Pending results Reviewed results. Enter room and patient lying peacefully in bed in NAD. Patient stable. Denies any new issues, concerns, or complaints. Discussed results with pt. Discussed tx plan with pt. Discussed and counseled on stable condition. Discussed importance of a f/u with PCP. Discussed return to ER criteria. Answered their questions. Indicates that they understand, agree, and will comply with above. Denies any new questions or concerns. Patient has capacity to understand. Discharge decision based on the following: patient's condition is stable; patient's exam is stable; social support is adequate; transportation is available; follow-up is available. Discussed of OTC Motrin and Tylenol to control inflammation and pain management. Informed to follow directions on bottle that are appropriate for age and/or weight. Disposition: Discharged home in good and improved condition. Condition: good and stable.CLINICAL IMPRESSION Acute cystitis with hematuria. 4 Clinical Report - Physicians/Mid Levels [facility] Emergency Department [address] [place] [address] Phone #: ext- [phone] 11/06/2020 13:55 Patient: MONICA CAO Sex: F : 1980 Age: 40yINSTRUCTIONS Take Tylenol (Acetaminophen) or Motrin (Ibuprofen) as needed for fever control. Take medication according to label instructions. Drink plenty of fluids. (Recommend to utilize OTC Motrin and Tylenol to control inflammation and pain management. Recommend to follow the instructions on the bottle and not to exceed.). Warnings: GENERAL WARNINGS: Return or contact your physician immediately if your condition worsens or changes unexpectedly, if not improving as expected, or if other problems arise. Prescription Medications: Macrobid 100 mg capsule Take 1 capsule twice a day for 7 days -- Dispense 14 capsule. Refills: 0. Substitution permitted. Pharmacy - [facility] [phone] ; [place] [address]. FaxNumber: . Follow-up: Return to the emergency department as needed. Follow up with your healthcare provider in about two days if not better. Call for an appointment. Understanding of the discharge instructions verbalized by patient.(Electronically signed by Domenic Ambriz P.A.-C 11/06/2020 16:42) Name Value Range Interpretation Code Description Data Rosa rce(s) Supporting Document(s) ID Date Data Source [id number] 11/06/2020 03:29:00 PM EST [facility] Name Value Range Interpretation Code Description Data Rosa rce(s) Supporting Document(s) HCG SERUM QUAL NEGATIVE NORMAL: NEGATIVE [facility] HCG SERUM QL REENTER NEGATIVE NORMAL: NEGATIVE [facility] { KIT LOT # [id number] ){ KIT EXP DATE 04.22.22 ){ PROCEDURAL CONTROL VALID ) ID Date Data Source [id number] 11/06/2020 03:02:00 PM EST [facility] Name Value Range Interpretation Code Description Data Rosa rce(s) Supporting Document(s) URINALYSIS [facility] UR[facility]ALYSIS SOURCE R [facility] COLOR yellow NORMAL: Yellow [facility] CLARITY clear NORMAL: Clear [facility] Specific gravity of Urine by Test strip 1.020 1.001 - 1.030 [facility] pH 6 5 - 9 [facility] al Glucose [Mass/volume] in Urine by Test strip NORM NORMAL: Negat [facility] Bilirubin.total [Presence] in Urine by Test strip NEG NORMAL: Negative [facility] Ketones [Presence] in Urine by Test strip NEG NORMAL: Negative [facility] Protein [Mass/volume] in Urine by Test strip NEG NORMAL: Negat [facility] Nitrite [Presence] in Urine by Test strip NEG NORMAL: Negative [facility] BLOOD 150 NORMAL: Negative [facility] Leukocyte esterase [Presence] in Urine by Test strip 25 KAREL L: Negative [facility] Urobilinogen [Mass/volume] in Urine by Test strip NOR less aguila n 1.0 mg/dL [facility] MICROSCOPIC See Below [facility] ital WBC 0 - [address] N[address]AL: NONE [address] [facility] Erythrocytes [#/volume] in Urine by Test strip 0 - 1 NORMAL: NON E SEEN [facility] EPITHELIAL FEW NORMAL: NONE SEEN [facility] Bacteria [Presence] in Urine sediment by Light microscopy Tr benny NORMAL: NONE SEEN [facility] ID Date Data Source PAP REQUEST FOR SERVICE 08/03/2020 12:00:00 AM EST [facility] ([facility]) Name Value Range Interpretation Code Description Data Rosa rce(s) Supporting Document(s) PAP REQUEST FOR SERVICE eCW1 ( [facility]) ID Date Data Source [id number] 08/01/2020 08:16:00 PM EST [facility] 1 OrderSheet [facility] Emergency Department [address] [place] [address] Phone #: ext- [phone] 08/01/2020 20:00 Patient: MONICA CAO Sex: F : 1980 Age: 40yWEIGHT:88.4 kg (S) HEIGHT:64 inches (S) BMI:33.5 STATUS:NoALLERGIES: Amoxicillin, AspirinCHIEF COMPLAINT: dysuriaDIAGNOSIS: VaginitisLAB ORDERSOrder Description Priority Entered Acknowledged InitialedUrinalysis (Clean STAT 20:14 08/01/2020 20:22 StevenCatch) Jaya Davis RN Verbal order per; Aleksey Early PAChlamydia/GC STAT 21:19 08/01/2020 21:20 Aleksey Soto R.N. PA; NOTES: urineDIAGNOSTIC STUDY ORDERSOrder Description Priority Entered Acknowledged InitialedMEDICATION/IV/DRIP/FLUID ORDERSOrder Description Priority Entered Acknowledged InitialedGENERAL ORDERSOrder Description Priority Entered Acknowledged Initialed[Electronically signed by Benoit Soto R.N. (21:32 08/01/2020)][Electronically signed by Aleksey Early (22:04 08/01/2020)][Electronically locked by Benoit Soto R.N. (21:32 08/01/2020)] Name Value Range Interpretation Code Description Data Rosa rce(s) Supporting Document(s) ID Date Data Source [id number] 08/01/2020 08:16:00 PM EST [facility] 1 Medication Reconciliation Report [facility] Emergency Department [address] [place] [address] Phone #: ext- [phone] 08/01/2020 20:00 Patient: MONICA CAO Sex: F : 1980 Age: 40yWeight: 88.4 kgHeight/Length: 64 in.BMI: 33.5ALLERGIES: Amoxicillin, AspirinThe patient's Home Medications are listed below:CONTINUE TAKING THE FOLLOWING MEDICATIONS: Control Pills Prenate OralThe source(s) of the original Home Medication information:patientThe following Medications were given to the patient in the Emergency Department:None.The following Medications were prescribed to the patient:3 Day Vaginal 200 mg/5 gram (4 %) cream Insert 1 applicatorful once a day for 3 days -- Dispense 1box. Refills: 0. Substitution permitted.Pharmacy - [facility] [phone] ; [place] [address]. FaxNumber: . -- LAMBERTO Phillip Name Value Range Interpretation Code Description Data Rosa rce(s) Supporting Document(s) ID Date Data Source [id number] 08/01/2020 08:16:00 PM [place] [address] Medication Administration Record [facility] Emergency Department [address] [place] [address] Phone #: ext- [phone] 08/01/2020 20:00 Patient: MONICA CAO Sex: F : 1980 Age: 40yWeight: 88.4 kgHeight/Length: 64 inBMI: 33.5ALLERGIES: Aspirin, AmoxicillinDate/Time Medication Administered Medication Ordered Name Value Range Interpretation Code Description Data Rosa rce(s) Supporting Document(s) ID Date Data Source [id number] 08/01/2020 08:16:00 PM [facility] 1 General Instructions [facility] Emergency Department [address] [place] [address] Phone #: ext- [phone] 08/01/2020 20:00 Patient: MONICA CAO Sex: F : 1980 Age: 40yAcute mild jana vaginitisINSTRUCTIONSYour Current Medications: Your current home medications have been reviewed.CONTINUE TAKING THE FOLLOWING MEDICATIONS: Control Pills*.Prenate Oral.Prescription Medications:3 Day Vaginal 200 mg/5 gram (4 %) cream Insert 1 applicatorful once a day for 3 days -- Dispense 1box. Refills: 0. Substitution permitted.Pharmacy - [facility] [phone] ; [place] [id number]. .Follow-up:Follow up with your doctor as scheduled. Reason for referral: evaluation and treatment. Summary of careprovided to patient.Understanding of the discharge instructions verbalized by patient. ADDITIONAL INFORMATIONYeast Infection (Jana Vaginal Infection) 2 General Instructions [facility] Emergency Department [address] [place] [address] Phone #: ext- [phone] 08/01/2020 20:00 Patient: MONICA CAO Sex: F : 1980 Age: 40yYou have a Jana vaginal infection. This is also known as a yeast infection. It is most often causedby a type of yeast (fungus) called Jana. Jana are normally found in the vagina. But if theyincrease in number, this can lead to infection and cause symptoms.Symptoms of a yeast infection can include: Clumpy or thin, white discharge, which may look like cottage cheese Itching or burning Burning with urinationCertain factors can make a yeast infection more likely. These can include: Taking certain medicines, such as antibiotics or control pills Diabetes Weak immune systemA yeast infection is most often treated with antifungal medicine. This may be given as a vaginal creamor pills you take by mouth. Treatment may last for about 1 to 7 days. Women with severe or recurrentinfections may need longer courses of treatment.Home care If you're prescribed medicine, be sure to use it as directed. Finish all of the medicine, even if your symptoms go away. Note: Don't try to treat yourself using gjgn-muv-kvceodj products without talking to your provider first. He or she will let you know if this is a good option for you. Ask your provider what steps you can take to help reduce your risk of having a yeast infection 3 General Instructions [facility] Emergency Department [address] [place] [address] Phone #: [phone]- [phone] 08/01/2020 20:00 Patient: MONICA CAO Sex: F : 1980 Age: 40y in the future.Follow-up careFollow up with your healthcare provider, or as directed.When to seek medical adviceCall your healthcare provider right away if: You have a fever of 100.4F (38C) or higher, or as directed by your provider. Your symptoms worsen, or they don't go away within a few days of starting treatment. You have new pain in the lower belly or pelvic region. You have side effects that bother you or a reaction to the cream or pills you're prescribed. You or any partners you have sex with have new symptoms, such as a rash, joint pain, or sores. [id number] [employer]. [address] [place] [address]. All rights reserved. This information is not intended as asubstitute for professional medical care. Always follow your healthcare professional's instructions. You have been given the following additional information: Yeast Infection, Vaginal (Jana Vaginal Infection)(Electronically signed by LAMBERTO Phillip 08/01/2020 22:04) Name Value Range Interpretation Code Description Data Rosa rce(s) Supporting Document(s) ID Date Data Source [id number] 08/01/2020 08:16:00 PM EST [facility] 1 Clinical Report - Nurses [facility] Emergency Department [address] [place] [address] Phone #: [phone]- [phone] 08/01/2020 20:00 Patient: MONICA CAO Sex: F : 1980 Age: 40yTRIAGEArrived by private vehicle. Historian: patient. Unaccompanied.Acuity: LEVEL 3.Chief Complaint: (UTI).Alert. No acute distress.( dx'd with UTI on 07/22. States abx gave her yeast infection. Took dose of fluconazole. Symptoms beganimproving, but now pt having dysuria, urgency, frequency, lower abd cramping.).SEPSIS SCREEN: SIRS Screen negative. Sepsis Screen negative. No suspected or confirmed signs ofinfection present. --20:12 08/01/20 Sylvie Davis0:04 08/01/20. BP: 139/98. MAP: 111. HR: 120. RR: 16. O2 saturation: 98% on room air. Temp: 97.8 F(oral). Pain level now: 11/02. --20:12 08/01/20 Jaya Davis.Weight: 88.4 kg stated. Height/Length: 64 inches Per Patient. BMI: 33.5. --20:03 08/01/20 Jaya Davis.MedicationsPrenate Oral. --20:08 08/01/20 Jaya Davis Control Pills. --20:08 08/01/20 Jaya Davis.AllergiesAmoxicillin. Moderate(hives) --20:08 08/01/20 [place] DavisinAspirin. --20:08 08/01/20 Jaya Davis.PROBLEMS:Heart Disease.Cervical Strain.Gastroesophageal Reflux Disease.UTI - Urinary Tract Infection.Vomiting.Muscle Strain, Upper Extremity.Sprain.Other Disease. --20:49 08/01/20 Benoit Soto RAngelic.Mitral Valve Prolapse. --21:18 08/01/20 Aleksey Swatsworth, PAThe following entry was modified by LAMBERTO Phillip, 21:18 08/01/20Mitral Valve Prolapse. --20:08/01/20 Ebony Davis following entry was modified by LAMBERTO Phillip, 21:18 08/01/20Mitral Valve Prolapse. --20:08/01/20 LAMBERTO Phillip. 2 Clinical Report - Nurses [facility] Emergency Department [address] [place] [address] Phone #: ext- [phone] 08/01/2020 20:00 Patient: MONICA CAO Sex: F : 1980 Age: 40y Medication/allergy information source: the patient. --20:12 08/01/20 Jaya Davis Medication/allergy information source: the patient. --20:13 08/01/20 Jaya Davis. ADDITIONAL SURGERIES: Dilatation Curettage. --20:09 08/01/20 Jaya Davis. History SOCIAL HX: Never smoker. No alcohol use or drug use. The patient was offered HIV testing but declined. Patient education was provided. The patient was offered hepatitis C testing but declined. Patient education was provided. The patient has not traveled outside the [place] Infectious disease exposure: No infectious disease exposure. The patient was not exposed to Coronavirus. Patient is not a known carrier of tuberculosis, hepatitis, HIV, MRSA or VRE. Patient is not a known carrier of CRE. SELF HARM ASSESSMENT: Self harm assessment was performed. The patient answered "no" to the question(s) "Do you have thoughts of harming or killing yourself?", "Do you have a plan for harming or killing yourself?" and "Have you recently had thoughts about harming or killing others?". ABUSE ASSESSMENT: No report of abuse. NUTRITIONAL RISK ASSESSMENT: The nutritional risk assessment revealed no deficiencies. FUNCTIONAL ASSESSMENT: Functional assessment: no impairments noted. LEARNING NEEDS ASSESSMENT: The learning needs assessment revealed no barriers. FALL RISK ASSESSMENT: Fall risk assessment completed. No risk factors identified. SKIN INTEGRITY ASSESSMENT: Skin integrity risk assessment completed. No skin integrity risk identified. --20:13 08/01/20 SantanaJaya juarez.PHYSICAL BIEHXKLHYX22:46 08/01/20. Ambulatory to room. Patient gowned.GENERAL / NEURO / PSYCH: Alert. Oriented X 4. Appears in no acute distress.HEENT: Mucous membranes are pink.RESPIRATORY: Respirations not labored. Breath sounds within normal limits.CVS: Normal heart rate and rhythm. Capillary refill less than 2 seconds.GI / : Abdomen soft and nontender. Bowel sounds within normal limits.SKIN: Skin is warm and dry. --20:46 08/01/20 Benoit Soto R.N.NURSING PROGRESS NOTES20:46 08/01/20. Reassurance given. Two patient identifiers checked. Call light placed in reach. Bed 3 Clinical Report - Nurses [facility] Emergency Department [address] [place] [address] Phone #: ext- [phone] 08/01/2020 20:00 Patient: MONICA CAO [facility]#: [id number] Sex: F : 1980 Age: 40y placed in lowest position. Brakes of bed on. Patient ready for evaluation- ED physician and PA notified. --20:47 08/01/20 Benoit Soto R.N.DISPOSITION / DISCHARGE 21:25 08/01/20. Departure time: 21:30 08/01/2020. Condition at departure: improved and stable. The goals identified in the patient's plan of care were met. Fall risk assessment completed. No risk factors identified. No learning barriers present. Discharge instructions provided and reviewed with the patient. Reviewed warnings. Reviewed medication(s) side effects, precautions, dosing and course information. Prescription(s) sent electronically to pharmacy. Treatments reviewed. Reviewed referral to a primary care physician. Patient verbalized understanding. Written instructions provided in Maldivian. The patient was discharged by the physician assistant restaurant general manager. She was discharged home. She left ambulatory and via private vehicle. Patient driving. --21:31 08/01/20 Benoit Soto R.N. 21:25 08/01/20. BP: 125/80. MAP: 95. HR: 100. RR: 16. O2 saturation: 100%. Temp: 97.8 F. Pain level now: 0/10. --21:31 08/01/20 Benoit Soto R.N.Locked/Released at 08/01/2020 21:32 by Benoit Soto R.N. Name Value Range Interpretation Code Description Data Rosa rce(s) Supporting Document(s) ID Date Data Source [id number] 08/01/2020 08:16:00 PM [facility] 1 Clinical Report - Physicians/Mid Levels [facility] Emergency Department [address] [place] [address] Phone #: ext- [phone] 08/01/2020 20:00 Patient: MONICA CAO Sex: F : 1980 Age: 40y Time Seen: 21:10 08/01/2020. Arrived- By private vehicle. Historian- patient.HISTORY OF PRESENT ILLNESS Chief Complaint: DYSURIA. This started yesterday dx'd with UTI on 07/22. States abx gave her yeast infection. Took dose of fluconazole. Symptoms began improving, but now pt having dysuria, urgency, frequency, lower abd cramping. and still present. It was abrupt in onset and has been constant. The symptoms are described as moderate. The patient has had pelvic pain. No abdominal pain, vaginal pain, low back pain, flank pain or hematuria. She has had pain with urination and urgency of urination. The patient has had urinary frequency. Last normal menstrual period unknown. control measures utilized. Similar symptoms previously. Patient has had similar symptoms once. Recent medical care: The patient was seen recently at this facility in a clinic.REVIEW OF SYSTEMSNo nausea, vomiting, diarrhea, black stools or headache. No fever, chills, anorexia, eye discomfort orsore throat. No cough, difficulty breathing, chest pain, skin rash or enlarged lymph nodes. No joint pain.PAST HISTORYProblems:Heart Disease.Cervical Strain.Gastroesophageal Reflux Disease.UTI - Urinary Tract Infection.Vomiting.Muscle Strain, Upper Extremity.Sprain.Other Disease. Additional Surgeries: Dilatation Curettage. Medications: Control Pills. Prenate Oral. Allergies: Amoxicillin. Moderate(hives) 2 Clinical Report - Physicians/Mid Levels [facility] Emergency Department [address] [place] [address] Phone #: ext- [phone] 08/01/2020 20:00 Patient: MONICA CAO Sex: F : 1980 Age: 40y Aspirin.SOCIAL HISTORYNever smoker. No alcohol use or drug use.PHYSICAL EXAMVital Signs: 08/01/2020 20:04 BP: 139/98. MAP: 111. HR: 120. RR: 16. O2 saturation: 98% on room air.Temp: 97.8 F. Pain level now: 2/10. Have been reviewed as abnormal. Hypertensive. Tachycardic.Oxygen saturation normal.Appearance: Alert. Oriented X3. No acute distress.HEENT: Normal external inspection.Neck: Neck supple.CVS: Heart sounds normal.Respiratory: No respiratory distress.Abdomen: Soft and nontender. Bowel sounds normal. No mass.Back: Normal external inspection.: No vaginal discharge or bleeding. No herpes-like lesions.Skin: Skin warm and dry. Normal skin color. No rash. Normal skin turgor.Extremities: Extremities nontender. No lower extremity edema.Neuro: Oriented X 3.LABS, X-RAYS, AND EKGLaboratory Tests: Laboratory tests have been ordered, with results reviewed and considered in themedical decision making process. Urinalysis: (VANESSA: 08/01/2020 20:18) ( MsgRcvd 08/01/2020 20:42) Final results Test Result Flag Units (Reference) URINALYSIS URINALYSIS SOURCE R COLOR yellow (NORMAL: Yello CLARITY Hazy (NORMAL: Clear SPEC GRAVITY 1.015 (1.001 - 1.030 pH 6 (5 - 9) GLUCOSE NORM (NORMAL: Negat BILIRUBIN NEG (NORMAL: Negat KETONE NEG (NORMAL: Negat PROTEIN NEG (NORMAL: Negat NITRITE NEG (NORMAL: Negat BLOOD 150 A (NORMAL: Negat LEUK EST NEG (NORMAL: Negat UROBILINOGEN NOR (less than 1.0 MICROSCOPIC See Below WBC None Seen (NORMAL: NONE RBC 0 - 1 (NORMAL: NONE EPITHELIAL FEW (NORMAL: NONE.PROGRESS AND PROCEDURES 3 Clinical Report - Physicians/Mid Levels [facility] Emergency Department [address] [place] [address] Phone #: [phone]- [phone] 08/01/2020 20:00 Patient: MONICA CAO Sex: F : 1980 Age: 40y Course of Care: 21:Aug 01 2020. Evaluation after observation. (Discussed exam findings and UA and will treat for Candidiasis and pt has follow up with playground equipment erector and PCM). Patient counseled in person regarding the patient's stable condition, test results, diagnosis and need for follow-up. Patient agrees with plan of care. 21:Aug 01 2020. Disposition: Discharged home in good and improved condition (:Aug 01 2020).CLINICAL IMPRESSION Acute mild jana vaginitisINSTRUCTIONS Your Current Medications: Your current home medications have been reviewed. CONTINUE TAKING THE FOLLOWING MEDICATIONS: Control Pills*. Prenate Oral. Prescription Medications: 3 Day Vaginal 200 mg/5 gram (4 %) cream Insert 1 applicatorful once a day for 3 days -- Dispense 1 box. Refills: 0. Substitution permitted. Pharmacy - [facility] [id number] ; [place] [address]. . Follow-up: Follow up with your doctor as scheduled. Reason for referral: evaluation and treatment. Summary of care provided to patient. Understanding of the discharge instructions verbalized by patient.(Electronically signed by LAMBERTO Phillip 08/01/2020 22:04) Name Value Range Interpretation Code Description Data Rosa rce(s) Supporting Document(s) ID Date Data Source [id number] 08/03/2020 08:34:00 PM [facility] Name Value Range Interpretation Code Description Data Rosa rce(s) Supporting Document(s) Chlamydia trachomatis rRNA [Presence] in Unspecified specimen by Probe and target amplification method Negative Negative [facility] Neisseria gonorrhoeae rRNA [Presence] in Unspecified specimen by Probe and target amplification method Negative Negative [facility] ID Date Data Source [id number] 08/01/2020 08:40:00 PM [facility] Name Value Range Interpretation Code Description Data [facility] rce(s) Supporting Document(s) UR[facility]ALYSIS [facility] URINALYS[facility] SOURCE R [facility] COLOR yellow NORMAL: Yellow [facility] CLARITY Hazy NORMAL: Clear [facility] Specific gravity of Urine by Test strip 1.015 1.001 - 1.030 [facility] pH 6 5 - 9 [facility] Glucose [Mass/volume] in Urine by Test strip [facility]ORM [facility]: [facility] Bilirubin.total [Presence] in Urine by Test strip NEG NORMAL: Negative [facility] Ketones [Presence] in Urine by Test strip NEG NORMAL: Negative [facility] Protein [Mass/volume] in Urine by Test strip [facility]G [facility]AL[facility] Nitrite [Presence] in Urine by Test strip NEG NORMAL: Negative [facility] BLOOD 150 NORMAL: Negative [facility] Leukocyte esterase [Presence] in Urine by Test strip NEG KAREL L: Negative [facility] Urobilinogen [Mass/volume] in Urine by Test strip NOR less aguila n 1.0 mg/dL [facility] MICROSCOPIC See Below [facility] ital WBC None Seen NORMAL: NONE SEEN [facility] Erythrocytes [#/volume] in Urine by Test strip 0 - 1 NORMAL: NON E SEEN [facility] EPITHELIAL FEW NORMAL: NONE SEEN [facility] ID Date Data Source [id number] 07/22/2020 12:25:00 PM EDT [facility] 1 OrderSheet [facility] Emergency Department [address] [place] [address] Phone #: ext- [phone] 07/22/2020 12:15 Patient: MONICA CAO Sex: F : 1980 Age: 40yWEIGHT:88.9 kg (S) HEIGHT:64 inches (S) BMI:33.7ALLERGIES: PenicillinsCHIEF COMPLAINT: pain, back pain, neck pain, chest pain, Rt, shoulders, in:, LtDIAGNOSIS: Strain of neck muscle, Urinary tract infectious disease, Strain of muscle of upper limbLAB ORDERSOrder Description Priority Entered Acknowledged InitialedUrinalysis (Clean STAT 12:59 07/22/2020 13:27 Jen Hoffmann RN Physician;Troponin-T STAT 12:59 07/22/2020 13:02 Frank Hoffmann RN Physician;TSH STAT 12:59 07/22/2020 13:02 Frank Hoffmann RN Physician;HCG Serum Qual STAT 12:59 07/22/2020 13:02 Frank Hoffmann RN Physician;D-Dimer STAT 12:59 07/22/2020 13:02 Frank Hoffmann RN Physician;CMP STAT 12:59 07/22/2020 13:02 Frank Hoffmann RN Physician;CBC w Diff STAT 12:59 07/22/2020 13:02 Frank Hoffmann RN Physician;Culture, Urine STAT 15:32 07/22/2020 15:55 Frank(Urine, Clean Manish Hoffmann RNCatronni) Physician;DIAGNOSTIC STUDY ORDERSOrder Description Priority Entered Acknowledged InitialedCT Spine Cervical STAT 12:59 07/22/2020 13:02 FrankW/O Cont Manish Hoffmann RN(Oxygen?(No)) Physician; Reason for Study: Trauma/Injury 2 OrderSheet [facility] Emergency Department [address] [place] [address] Phone #: ext- [phone] 07/22/2020 12:15 Patient: MONICA CAO Sex: F : 1980 Age: 40yCT Spine Thoracic STAT 12:59 07/22/2020 13:02 FrankW/O Cont Manish Hoffmann RN(Oxygen?(No)) Physician; Reason for Study: Trauma/InjuryShoulder Bilateral STAT 13:00 07/22/2020 13:02 Frank(Oxygen?(No)) Manish Hoffmann RN Physician; Reason for Study: Shoulder Injury, Shoulder Pain, Trauma/InjuryChest 2 View STAT 13:01 07/22/2020 13:02 Frank(Oxygen?(No)) Manish Hoffmann RN Physician; Reason for Study: Chest PainMEDICATION/IV/DRIP/FLUID ORDERSOrder Description Priority Entered Acknowledged InitialedCipro PO 500 mg 15:00 07/22/2020 15:29 Frank Hoffmann RN Physician;GENERAL ORDERSOrder Description Priority Entered Acknowledged InitialedEKG 13:01 07/22/2020 13:27 Frank Hoffmann RN Physician;Saline Lock 13:01 07/22/2020 13:10 Frank Hoffmann RN Physician;Pulse oximeter 13:01 07/22/2020 13:10 Frank(Spot Check) Manish Hoffmann RN Physician;[Electronically signed by Frank Hoffmann RN (16:04 06/25)][Electronically signed by Manish Gu Physician (23:11 07/22/2020)][Electronically locked by Frank Hoffmann RN (16:04 07/22/2020)] Name Value Range Interpretation Code Description Data Rosa rce(s) Supporting Document(s) ID Date Data Source [id number] 07/22/2020 12:25:00 PM EDT [facility] 1 Medication Reconciliation Report [facility] Emergency Department [address] [place] [address] Phone #: [phone]- [phone] 07/22/2020 12:15 Patient: MONICA CAO Sex: F : 1980 Age: 40yWeight: 88.9 kgHeight/Length: 64 in.BMI: 33.7ALLERGIES: PenicillinsThe patient's Home Medications are listed below:THE FOLLOWING MEDICATIONS NEED TO BE RECONCILED: Bcp BcpThe source(s) of the original Home Medication information:patientThe following Medications were given to the patient in the Emergency Department:Cipro [PO] PO 500 mg, administered: 07/22/2020 3:29:00 PMThe following Medications were prescribed to the patient:Percocet 5 mg-325 mg tablet Take 1 tablet every eight hours as needed for 3 days -- for severe pain.Dispense 9 tablet. Refills: 0. Substitution permitted.[facility] [id number] ; [place] [address]. .cyclobenzaprine 10 mg tablet 1 tablet every eight hours as needed for 7 days -- for muscle spasm / pain.Dispense 21 tablet. Refills: 0. Substitution permitted.[facility] [phone] ; [place] [address]. .acetaminophen 500 mg tablet Take 2 tablet every six hours as needed for 10 days -- for pain or fever.Dispense 80 tablet. Refills: 0. Substitution permitted.[facility] [id number] ; [place] [address]. .Cipro 500 mg tablet Take 1 tablet twice a day for 7 days -- for UTI. Dispense 14 tablet. Refills: 0. 2 Medication Reconciliation Report [facility] Emergency Department [address] [place] [address] Phone #: ext- [phone] 07/22/2020 12:15 Patient: MONICA CAO Sex: F : 1980 Age: 40ySubstitution permitted.Pharmacy - [facility] [id number] ; [place] [address]. . -- Physician Mary Name Value Range Interpretation Code Description Data Rosa rce(s) Supporting Document(s) ID Date Data Source [id number] 07/22/2020 12:25:00 PM EDT [facility] 1 Medication Administration Record [facility] Emergency Department [address] [place] [address] Phone #: [phone]- [phone] 07/22/2020 12:15 Patient: MONICA CAO Sex: F : 1980 Age: 40yWeight: 88.9 kgHeight/Length: 64 inBMI: 33.7ALLERGIES: Penicillins Date/Time Medication Administered Medication OrderedGiven CIPRO [PO] (CIPROFLOXACIN) Cipro PO 500 mg15:29 07/22/2020 Dose: 500 mg Tablets Roberto Carlos Hoffmann RN Name Value Range Interpretation Code Description Data Rosa rce(s) Supporting Document(s) ID Date Data Source [id number] 07/22/2020 12:25:00 PM EDT [facility] 1 General Instructions [facility] Emergency Department [address] [place] [address] Phone #: ext- [phone] 07/22/2020 12:15 [facility]: [id number] Sex: F : 1980 Age: 40yAcute cervical strain.Muscle strain of the right trapezius at the shoulder, left trapezius at the shoulder and upper back.Acute urinary tract infection with cystitis. No hematuria. Not associated with indwelling catheter orobstruction.INSTRUCTIONSWarnings: Further evaluation is necessary.GENERAL WARNINGS: Return or contact your physician immediately if your condition worsens orchanges unexpectedly, if not improving as expected, or if other problems arise.Prescription Medications:Percocet 5 mg-325 mg tablet Take 1 tablet every eight hours as needed for 3 days -- for severe pain.Dispense 9 tablet. Refills: 0. Substitution permitted.[facility] [phone] ; [place] [address]. .cyclobenzaprine 10 mg tablet 1 tablet every eight hours as needed for 7 days -- for muscle spasm / pain.Dispense 21 tablet. Refills: 0. Substitution permitted.[facility] [id number] ; [place] [address]. FaxNumber: .acetaminophen 500 mg tablet Take 2 tablet every six hours as needed for 10 days -- for pain or fever.Dispense 80 tablet. Refills: 0. Substitution permitted.[facility] [address] ; [place] [address]. .Cipro 500 mg tablet Take 1 tablet twice a day for 7 days -- for UTI. Dispense 14 tablet. Refills: 0.Substitution permitted.Pharmacy - [facility] [id number] ; [place] [address]. .Follow-up:Follow up with your doctor in three days if not better. Call for an appointment. Reason for referral:evaluation, treatment and Cervical strain / Shoulder strain / Upper back strain / UTI.Understanding of the discharge instructions verbalized by patient. 2 General Instructions [facility] Emergency Department [address] [place] [address] Phone #: ext- [phone] 07/22/2020 12:15 Patient: MONICA CAO Sex: F : 1980 Age: 40y ADDITIONAL INFORMATIONNeck Sprain or StrainA sudden force that causes turning or bending of the neck can cause sprain or strain. An examplewould be the force from a car accident. This can stretch or tear muscles called a strain. It can alsostretch or tear ligaments called a sprain. Either of these can cause neck pain. Sometimes neck painoccurs after a simple awkward movement. In either case, muscle spasm is commonly present andcontributes to the pain.Unless you had a forceful physical injury (for example, a car accident or fall), X-rays are often notordered for the initial evaluation of neck pain. If pain continues and does not respond to medicaltreatment, X-rays and other tests may be done later.Home care You may feel more soreness and spasm the first few days after the injury. Rest until symptoms start to improve. When lying down, use a comfortable pillow or a rolled towel that supports the head and keeps the spine in a neutral position. The position of the head should not be tilted forward or backward. Apply an ice pack over the injured area for 15 to 20 minutes every 3 to 6 hours. Do this for the first 24 to 48 hours. You can make an ice pack by filling a plastic bag that seals at the top with ice cubes and then wrapping it with a thin towel. After 48 hours, apply heat (warm shower or warm bath) for 15 to 20 minutes several times a day, or alternate ice and heat. You may use udxn-aro-awexkhc pain medicine to control pain, unless another pain medicine was prescribed. If you have chronic liver or kidney disease or ever had a stomach ulcer or gastrointestinal bleeding, talk with your healthcare provider before using these medicines. If a soft cervical collar was prescribed, only ear it for periods of increased pain. It should not be worn for more than 3 hours a day, or for longer than 1 to 2 weeks.Follow-up careFollow up with your healthcare provider, or as directed. Physical therapy may be needed.Sometimes fractures don't show up on the first X-ray. Bruises and sprains can sometimes hurt asmuch as a fracture. These injuries can take time to heal completely. If your symptoms don't improveor they get worse, talk with your healthcare provider. You may need a repeat X-ray or other tests. IfX-rays were taken, you will be told of any new findings that may affect your care. 3 General Instructions [facility] Emergency Department [address] [place] [address] Phone #: [phone]- [phone] 07/22/2020 12:15 Patient: MONICA CAO Sex: F : 1980 Age: 40yCall 911Call 911 if you have: Neck swelling, difficulty or painful swallowing Trouble breathing Chest painWhen to seek medical adviceCall your healthcare provider right away if any of these occur: Pain becomes worse or spreads into your arms or legs Weakness or numbness in one or both arms or legs [id number] [employer] [place] [address], [place] [address]. All rights reserved. This information is not intended as asubstitute for professional medical care. Always follow your healthcare professional's instructions.Neck Pain There are several possible causes of neck pain when thereis no injury: You can get a minor ligament sprain or muscle strain from a sudden minor neck movement. 4 General Instructions [facility] Emergency Department [address] [place] [address] Phone #: [phone]- [phone] 07/22/2020 12:15 Patient: MONICA CAO Sex: F : 1980 Age: 40y Sleeping with your neck in an awkward position can also cause this. Some people respond to emotional stress by tensing the muscles of their neck, shoulders, and upper back. Chronic spasm in these muscles can cause neck pain and sometimes headaches. Gradual wear and tear of the joints in the spine can cause degenerative arthritis. This can be a source of occasional or chronic neck pain. The spinal disks may bulge and put pressure on a nearby spinal nerve. This can happen as a natural result of aging or repeated small injuries to the neck. The spinal disks are the cushions between each spinal bone. This causes tingling, pain, or numbness that spreads from the neck to the shoulder, arm, or hand on one side.Acute neck pain usually gets better in 1 to 2 weeks. Neck pain related to disk disease, arthritis in thespinal joints, or spinal stenosis can become chronic and last for months or years. Spinal stenosis isnarrowing of the spinal canal.X-rays are usually not ordered for the initial evaluation of neck pain. However, X-rays may be done ifyou had a forceful physical injury, such as a car accident or fall. If pain continues and doesn't respondto medical treatment, X-rays and other tests may be done at a later time.Home care Rest and relax the muscles. Use a comfortable pillow that supports the head. It should also help keep the spine in a neutral position. The position of the head should not be tilted forward or backward. A rolled up towel may help for a custom fit. Some people find relief with heat. Heat can be applied with either a warm shower or bath or a moist towel heated in the microwave and massage. Others prefer cold packs. You can make an ice pack by filling a plastic bag that seals at the top with ice cubes or crushed ice and then wrapping it with a thin towel. Try both and use the method that feels best for 15 to 20 minutes, several times a day. Whether using ice or heat, be careful that you do not injure your skin. Never put ice directly on the skin. Always wrap the ice in a towel or other type of cloth.This is very important, especially in people with poor skin sensations. Try to reduce your stress level. Emotional stress can lead to neck muscle tension and get in the way of or delay the healing process. You may use stoc-gfc-jxxmync pain medicine to control pain, unless another medicine was prescribed. If you have chronic liver or kidney disease or ever had a stomach ulcer or GI bleeding, talk with your healthcare provider before using these medicines. 5 General Instructions [facility] Emergency Department [address] [place] [address] Phone #: [phone] 07/22/2020 12:15 [facility]: [id number] Sex: F : 1980 Age: 40yFollow-up careFollow up with your healthcare provider if your symptoms do not show signs of improvement after oneweek. Physical therapy or further tests may be needed.If X-rays, CT scans, or MRI scans were taken, you will be told of any new findings that may affectyour care.Call [phone] if you have: Sudden weakness or numbness in one or both arms Neck swelling, difficulty or painful swallowing Difficulty breathing Chest painWhen to seek medical adviceCall your healthcare provider right away if any of these occur: Pain becomes worse or spreads into one or both arm Increasing headache Fever of 100.4F (38C) or higher, or as directed by your healthcare provider [phone] [employer]. [address] [place] [address], [place] [address]. All rights reserved. This information is not intended as asubstitute for professional medical care. Always follow your healthcare professional's instructions.Muscle Strain in the ExtremitiesA muscle strain is a stretching and tearing of muscle fibers. This causes pain, especially when youmove that muscle. There may also be some swelling and bruising.Home care Keep the hurt area raised above heart level to reduce pain and swelling. This is especially important during the first 48 hours. Apply an ice pack over the injured area for 15 to 20 minutes every 3 to 6 hours. You should do this for the first 24 to 48 hours. You can make an ice pack by filling a plastic bag that seals at the top with ice cubes and then wrapping it with a thin towel. Be careful not to injure your skin with the ice treatments. Ice should never be applied directly to skin. Continue the use of 6 General Instructions [facility] Department [address] [place] [address] Phone #: [phone] 07/22/2020 12:15 Patient: [id number] Sex: F : 1980 Age: 40y ice packs for relief of pain and swelling as needed. After 48 hours, apply heat (warm shower or warm bath) for 15 to 20 minutes several times a day, or alternate ice and heat. You may use oart-byo-xvjdeab pain medicine to control pain, unless another medicine was prescribed. If you have chronic liver or kidney disease or ever had a stomach ulcer or gastrointestinal bleeding, talk with your healthcare provider before using these medicines. For leg strains: If crutches have been recommended, don't put full weight on the hurt leg until you can do so without pain. You can return to sports when you are able to hop and run on the injured leg without pain.Follow-up careFollow up with your healthcare provider, or as advised.When to seek medical adviceCall your healthcare provider right away if any of these occur: The toes of the injured leg become swollen, cold, blue, numb, or tingly Pain or swelling increases [phone] [employer]. [address] [place] [address]. All rights reserved. This information is not intended as asubstitute for professional medical care. Always follow your healthcare professional's instructions.Bladder Infection, Female (Adult) 7 General Instructions [facility] Emergency Department [address] [place] [address] Phone #: [phone]- [phone] 07/22/2020 12:15 Patient: MONICA CAO Sex: F : 1980 Age: 40yUrine is normally doesn't have any bacteria in it. But bacteria can get into the urinary tract from theskin around the rectum. Or they can travel in the blood from elsewhere in the body. Once they are inyour urinary tract, they can cause infection in the urethra (urethritis), the bladder (cystitis), or thekidneys (pyelonephritis).The most common place for an infection is in the bladder. This is called a bladder infection. This isone of the most common infections in women. Most bladder infections are easily treated. They arenot serious unless the infection spreads to the kidney.The phrases "bladder infection," "UTI," and "cystitis" are often used to describe the same thing. Butthey are not always the same. Cystitis is an inflammation of the bladder. The most common cause ofcystitis is an infection.SymptomsThe infection causes inflammation in the urethra and bladder. This causes many of the symptoms.The most common symptoms of a bladder infection are: Pain or burning when urinating Having to urinate more often than usual Urgent need to urinate Only a small amount of urine comes out Blood in urine Abdominal discomfort. This is usually in the lower abdomen above the pubic bone. Cloudy urine Strong- or bad-smelling urine Unable to urinate (urinary retention) Unable to hold urine in (urinary incontinence) Fever Loss of appetite Confusion (in older adults)CausesBladder infections are not contagious. You can't get one from someone else, from a toilet seat, orfrom sharing a bath. 8 General Instructi [facility] Emergency Department [address] [place] [address] Phone #: [phone]- [phone] 07/22/2020 12:15 Patient: MONICA CAO Sex: F : 1980 Age: 40yThe most common cause of bladder infections is bacteria from the bowels. The bacteria get onto theskin around the opening of the urethra. From there, they can get into the urine and travel up to thebladder, causing inflammation and infection. This usually happens because of: Wiping improperly after urinating. Always wipe from front to back. Bowel incontinence Procedures such as having a catheter inserted Older age Not emptying your bladder. This can allow bacteria a chance to grow in your urine. Dehydration Constipation Sex Use of a diaphragm for controlTreatmentBladder infections are diagnosed by a urine test. They are treated with antibiotics and usually clear upquickly without complications. Treatment helps prevent a more serious kidney infection.MedicinesMedicines can help in the treatment of a bladder infection: Take antibiotics until they are used up, even if you feel better. It is important to finish them to make sure the infection has cleared. You can use acetaminophen or ibuprofen for pain, fever, or discomfort, unless another medicine was prescribed. If you have chronic liver or kidney disease, talk with your healthcare provider before using these medicines. Also talk with your provider if you've ever had a stomach ulcer or gastrointestinal bleeding, or are taking blood-thinner medicines. If you are given phenazopydridine to reduce burning with urinatio n, it will cause your urine to become a bright orange color. This can stain clothing.Care and preventionThese self-care steps can help prevent future infections: 9 General Instructions [facility] Emergency Department [address] [place] [address] Phone #: [phone]- [phone] 07/22/2020 12:15 Patient: MONICA CAO Sex: F : 1980 Age: 40y Drink plenty of fluids to prevent dehydration and flush out your bladder. Do this unless you must restrict fluids for other health reasons, or your doctor told you not to. Proper cleaning after going to the bathroom is important. Wipe from front to back after using the toilet to prevent the spread of bacteria. Urinate more often. Don't try to hold urine in for a long time. Wear loose-fitting clothes and cotton underwear. Avoid tight-fitting pants. Improve your diet and prevent constipation. Eat more fresh fruit and vegetables, and fiber, and less junk and fatty foods. Avoid sex until your symptoms are gone. Avoid caffeine, alcohol, and spicy foods. These can irritate your bladder. Urinate right after intercourse to flush out your bladder. If you use control pills and have frequent bladder infections, discuss it with your doctor.Follow-up careCall your healthcare provider if all symptoms are not gone after 3 days of treatment. This is especiallyimportant if you have repeat infections.If a culture was done, you will be told if your treatment needs to be changed. If directed, you cancall to find out the results.If X-rays were done, you will be told if the results will affect your treatment.Call [phone] if any of the following occur: Trouble breathing Hard to wake up or confusion Fainting or loss of consciousness Rapid heart rateWhen to seek medical adviceCall your healthcare provider right away if any of these occur: Fever of 100.4F (38.0C) or higher, or as directed by your healthcare provider 10 General Instructions [facility] Emergency Department [address] [place] [address] Phone #: [phone]- [phone] 07/22/2020 12:15 Patient: MONICA CAO Sex: F : 1980 Age: 40y Symptoms are not better by the third day of treatment Back or belly (abdominal) pain that gets worse Repeated vomiting, or unable to keep medicine down Weakness or dizziness Vaginal discharge Pain, redness, or swelling in the outer vaginal area (labia) [phone] [employer]. [address] [place] [address]. All rights reserved. This information is not intended as asubstitute for professional medical care. Always follow your healthcare professional's instructions. You have been given the following additional information: Neck Sprain or Strain Neck Pain Muscle Strain, Extremity Bladder Infection, Female (Adult)(Electronically signed by Manish Gu, Physician 07/22/2020 23:11) Name Value Range Interpretation Code Description Data Rosa rce(s) Supporting Document(s) ID Date Data Source [id number] 07/22/2020 12:25:00 PM EDT [facility] 1 Clinical Report - Nurses [facility] Emergency Department [address] [place] [address] Phone #: ext- [phone] 07/22/2020 12:15 Patient: MONICA CAO Sex: F : 1980 Age: 40yTRIAGEArrived by private vehicle. Historian: patient. Accompanied by family. ( presents with c/o bilateralshoulder and neck pain, L worse than R, states she fell a month ago and injured L shoulder was seen aturgent care but since then sx have been getting worse.).Triage time: 12:21 07/22/2020. Acuity: LEVEL 4.Chief Complaint: Location of symptoms- right shoulder. Location of symptoms- left shoulder.Alert. No acute distress.An injury may have occurred. Onset. (1 months). Provoking / relieving factors: worsened by movement;relieved by rest. 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 Seen within the last 90 days at another facility.SEPSIS SCREEN: SIRS Screen negative. Sepsis Screen negative. No suspected or confirmed signs ofinfection present. --12:30 07/22/20 Nanci Sanz RN12:21 07/22/20. BP: 147/97. MAP: 113. HR: 88. RR: 16. O2 saturation: 100%. Temp: 98.8 F. Pain levelnow: 5/10. --12:30 07/22/20 Nanci Sanz RN.Weight: 88.9 kg stated. Height/Length: 64 inches Per Patient. BMI: 33.7. --12:22 07/22/20 Nanci Sanz RN.MedicationsBcp. Bcp. --12:25 07/22/20 Nanci Sanz RN.AllergiesPenicillins. --12:07/22/20 Nanci Sanz RN.Medication/allergy information source: the patient. --12:30 07/22/20 Nanci Sanz RN.HistoryPAST MEDICAL HX: Last normal menstrual period was 3 weeks ago. Uses control pills.SOCIAL HX: Former smoker. No alcohol use or drug use. The patient was offered HIV testing butdeclined and hepatitis C testing but declined. The patient has not traveled outside the [place]Infectious disease exposure: No infectious disease exposure.SELF HARM ASSESSMENT: Self harm assessment was performed. The patient answered "no" to thequestion(s) "Have you recently felt down, depressed, or hopeless?". 2 Clinical Report - Nurses [facility] Emergency Department [address] [place] [address] Phone #: ext- [phone] 07/22/2020 12:15 Patient: MONICA CAO [facility]#: [id number] Sex: F : 1980 Age: 40y ABUSE ASSESSMENT: No report of abuse. NUTRITIONAL RISK ASSESSMENT: The nutritional risk assessment revealed no deficiencies. FUNCTIONAL ASSESSMENT: Functional assessment: no impairments noted. LEARNING NEEDS ASSESSMENT: The learning needs assessment revealed no barriers. FALL RISK ASSESSMENT: Fall risk assessment completed. No risk factors identified. SKIN INTEGRITY ASSESSMENT: Skin integrity risk assessment completed. No skin integrity risk identified. --12:07/22/20 Nanci Sanz RN.PHYSICAL ASSESSMENTAmbulatory to room.GENERAL / NEURO / PSYCH: Oriented X 4. Alert. Appears in pain.EXTREMITIES: Limited ROM present in the right shoulder and left shoulder (pt voices increase in pain withmovement). Neuro-vascular status intact to the extremity. No upper extremity edema. Right shoulder:tenderness located in the anterior and lateral aspect of the shoulder. Left shoulder: tenderness located inthe anterior and lateral aspect of the shoulder.SKIN: Skin intact. Skin is warm and dry. --12:38 07/22/20 Frank Hoffmann RN.NURSING PROGRESS NOTESPatient gowned. Reassurance given. Two patient identifiers checked. Bed placed in lowest position.Brakes of bed on. Patient ready for evaluation. --12:07/22/20 Nanci Sanz RN 13:07/22/2020 Site #1 started via IV in the right antecubital space with an 20g angiocath, with aseptic technique and good blood return; one attempt. Blood drawn: rainbow set and green tube(s). Labeled in the presence of the patient and sent to the lab. Saline lock flushed with 10 mL saline. --13:07/22/20 Frank Hoffmann RN EKG time: (13:15 07/22/2020). EKG was performed by a nurse and shown to the ED physician. --13:16 07/22/20 Frank Hoffmann RN 15:29 07/22/2020 Cipro (Ciprofloxacin) PO Tablets 500 mg given. Allergies verified and confirmed 5 rights. Information reviewed with patient including reason for taking this medication. Verbalizes understanding. --15:29 07/22/20 Frank Hoffmann RN 16:03 07/22/2020 Site #1 removed upon discharge. Catheter intact. Manual pressure and bandage applied. --16:03 07/22/20 Frank Hoffmann RN.DISPOSITION / DISCHARGE Condition at departure: improved and stable. Discharge instructions provided and reviewed with the 3 Clinical Report - Nurses [facility] Emergency Department [address] [place] [address] Phone #: ext- [phone] 07/22/2020 12:15 [id number] Sex: F : 1980 Age: 40y patient. Reviewed medication(s) side effects, precautions, dosing and course in formation. Prescription(s) sent electronically to pharmacy. Patient verbalized understanding. Written instructions provided in Maldivian. The patient was discharged by the physician. She was discharged home and accompanied by spouse. She left ambulatory and via private vehicle. Spouse driving. --16:03 07/22/20 Frank Hoffmann RN 16:03 07/22/20. BP: 152/85. MAP: 107. HR: 99. RR: 18. O2 saturation: 100%. Pain level now: 5/10. --16:03 07/22/20 Frank Hoffmann RN.Locked/Released at 07/22/2020 16:04 by Frank Hoffmann RN Name Value Range Interpretation Code Description Data Rosa rce(s) Supporting Document(s) ID Date Data Source [id number] 07/22/2020 12:25:00 PM EDT [facility] 1 Clinical Report - Physicians/Mid Levels [facility] Emergency Department [address] [place] [address] Phone #: ext- [phone] 07/22/2020 12:15 [facility]: [id number] Sex: F : 1980 Age: 40y Time Seen: 12:13 07/22/2020. Arrived- By private vehicle. Historian- patient. RETURN VISIT. Disposition decision: 15:35 07/22/2020.HISTORY OF PRESENT ILLNESS Chief Complaint: UPPER EXTREMITY PAIN and CHEST PAIN, BACK PAIN and NECK PAIN; PROBLEM IN THE RIGHT SHOULDER and LEFT SHOULDER; (L shoulder pain / R shoulder pain / neck pain). Severity is described as being moderate in degree. It has become recently worse. The quality is noted to be sharp, aching, "pain" and similar to prior episodes. This started 1 month ago and is still present (Fell down stairs one month ago and hurt neck / back and shoulders.). It was abrupt in onset and has been waxing/waning. Modifying factors- worsened by cough. Symptoms located in the area of the right scapula, right shoulder, left scapula and left shoulder. The patient complains of mild central chest pain, currently mild. No difficulty breathing, swelling, sensory loss or motor loss. She has not had redness. (Pt. was here in [facility] ED with same complaints 13 months ago.). Patient notes an injury. Mechanism of injury- fell: Occurred at home. Similar symptoms previously. (For for at least 1 month). Recent medical care: The patient was seen recently at another facility in the emergency department.REVIEW OF SYSTEMSNo fever, chills, eye discomfort, headache or depression. No sore throat, cough, skin rash, enlargedlymph nodes or neck pain. No abdominal pain, nausea, vomiting, diarrhea or black stools. No difficultywith urination, urinary frequency, hematuria, vaginal discharge or irregular periods. No bloody stools.PAST HISTORYPast history not negative. See nurses notes. Heart disease. Other disease. Chronic back painChronic neck painMVP. Surgeries: Dilatation and Curettage.SOCIAL HISTORYFormer smoker. No alcohol use or drug use. No recent travel.ADDITIONAL NOTESThe nursing notes have been reviewed with agreement regarding the chief complaint, HPI, ROS, PMH andpatient medications and allergies.PHYSICAL EXAM 2 Clinical Report - Physicians/Mid Levels [facility] Emergency Department [address] [place] [address] Phone #: ext- [phone] 07/22/2020 12:15 Patient: [id number] Sex: F : 1980 Age: 40y Vital Signs: 07/22/2020 12:21 BP: 147/97. MAP: 113. HR: 88. RR: 16. O2 saturation: 100%. Temp: 98.8 F. Pain level now: 01/30. Have been reviewed and appear to be correct. Hypertensive. Heart rate normal. Respiratory rate normal. Temperature normal. Oxygen saturation normal. Appearance: Alert. Oriented X3. Anxious. Appears to be in pain. Patient in moderate distress. No backboard or C-collar. In distress. Eyes: Pupils equal, round and reactive to light. Eyes normal inspection. ENT: Nose normal. Pharynx normal. Neck: Neck not supple. Normal inspection. Mild pain in the entire posterior neck upon turning the head to the right, turning the head to the left, lifting the head, flexing the neck, extending the neck and axial loading. CVS: Normal heart rate and rhythm. Heart sounds normal. Respiratory: No respiratory distress. Painless inspiration. Breath sounds normal. Abdomen: Soft and nontender. No organomegaly. Back: Abnormal inspection. Back tenderness present. Mild vertebral tenderness over the upper, mid and lower cervical and upper and mid thoracic spine. Mild soft tissue tenderness in the right upper, mid and lower and left upper, mid and lower cervical paraspinous region and right upper and mid and left upper and mid thoracic paraspinous region. Abnormal ROM. Moderate muscle spasm of the right and left upper back. Mildly limited ROM in the back- in the cervical spine: decreased flexion, extension, right lateral bending, left lateral bending and rotation to the right and left; in the thoracic spine: decreased flexion, e xtension, right lateral bending, left lateral bending and rotation to the right and left. No CVA tenderness. Skin: Skin intact. Skin warm and dry. Normal skin color. Normal skin turgor. Extremities: Upper extremities normal to inspection. Upper extremities exhibit normal ROM. Upper extremity tenderness. No upper extremity edema. No signs of infection present in the upper extremities. No upper extremity pulse deficit present. Upper extremity capillary refill not prolonged. No upper extremity edema. No axillary adenopathy. Negative Tinel sign. Right scapula area. Left scapula area. Right shoulder. Left shoulder. Extremities otherwise negative. Neuro: Oriented X 3. No motor deficit. No sensory deficit.LABS, X-RAYS, AND EKGChest X-ray: Normal Chest X-Ray.Laboratory Tests: Laboratory tests have been ordered, with results reviewed and considered in themedical decision making process. Culture, Urine: (VANESSA: 07/22/2020 15:32) ( MsgRcvd 07/22/2020 16:45) Canceled SOURCE: Urine, Clean Catch Chest 2 View: (VANESSA: 07/22/2020 13:01) ( MsgRcvd 07/22/2020 15:26) In Progress CHEST 2 VIEWS Reason(s): Chest Pain TRANSPORTATION: WC IV? O2? Oxygen?(No) Room: ED EKG: (VANESSA: 07/22/2020 13:01) ( MsgRcvd 07/22/2020 19:34) Final results Test Result Flag Units (Reference) EKG 3 Clinical Report - Physicians/Mid Levels [facility] Emergency Department [address] [place] [address] Phone #: ext- [phone] 07/22/2020 12:15 Patient: MONICA CAO Sex: F : 1980 Age: 40[place] [address] -- -- RESPIRATORY CARE REPORT -- ---------NAME------- NUMBER SEX AGE ADMIT DISC. XRAY# F/C TYPE NASH ANDERSON [id number] F [id number] 07/22/20 07/22/20 [id number] E/R DATE OF : 1980 M/R# [id number] PH#: [phone] TR-08 LOCATION: EMERGENCY DEPT EKG [id number] COMPLETE:07/22/20 15:00 [place] [id number] PHYSICIAN: RICCARDO Weiss Bilateral: (VANESSA: 07/22/2020 13:00) ( [facility] 07/22/2020 15:26) In ProgressSHOULDER COMP - BILATERALReason(s): Shoulder InjuryTRANSPORTATION: WC IV? O2? Oxygen?(No) Room: EDUrinalysis: (VANESSA: 07/22/2020 13:00) ( [facility] 07/22/2020 13:32) Final results Test Result Flag Units (Reference) URINALYSIS URINALYSIS SOURCE R COLOR yellow (NORMAL: Yello CLARITY hazy (NORMAL: Clear SPEC GRAVITY 1.025 (1.001 - 1.030 pH 5 (5 - 9) GLUCOSE NORM (NORMAL: Negat BILIRUBIN NEG (NORMAL: Negat KETONE NEG (NORMAL: Negat PROTEIN NEG (NORMAL: Negat NITRITE NEG (NORMAL: Negat BLOOD 250 A (NORMAL: Negat LEUK EST 500 A (NORMAL: Negat UROBILINOGEN NOR (less than 1.0 MICROSCOPIC See Below WBC 15 - 20 A (NORMAL: NONE RBC 7 - 10 A (NORMAL: NONE EPITHELIAL MANY A (NORMAL: NONE BACTERIA 2+ MOD A (NORMAL: NONETroponin-T: (VANESSA: 07/22/2020 13:06) ( [facility] 07/22/2020 13:55) Final results Test Result Flag Units (Reference) TROPONIN T <0.01 NG/ML (0.00 - 0.10) TROPONIN T0.1 ng/ml Recommended as the clinical threshold value forTroponin T.TSH: (VANESSA: 07/22/2020 13:06) ( MsgRcvd 07/22/2020 14:05) Final results Test Result Flag Units (Reference) TSH 2.05 uIU/mL (0.47 - 5.01)Beta-HCG, Qual Serum: (VANESSA: 07/22/2020 13:06) ( MsgRcvd 07/22/2020 13:50) Final results Test Result Flag Units (Reference) 4 Clinical Report - Physicians/Mid Levels [facility] Emergency Department [address] [place] [address] Phone #: ext- [phone] 07/22/2020 12:15 - Patient: MONICA CAO Sex: F : 1980 Age: 40y HCG SERUM QUAL NEGATIVE (NORMAL: NEGAT HCG SERUM QL REENTER NEGATIVE (NORMAL: NEGAT { KIT LOT # [id number] ){ KIT EXP DATE06.28.21 ){ PROCEDURAL CONTROL VALID)D- Dimer: (VANESSA: 07/22/2020 13:06) ( MsgRcvd 07/22/2020 13:49) Final results Test Result Flag Units (Reference) D-DIMER QUANT 0.27 ug/mL (0.27 - 0.50)CMP: (VANESSA: 07/22/2020 13:06) ( MsgRcvd 07/22/2020 14:05) Final results Test Result Flag Units (Reference) COMPREHENSIVE METABOLIC PANEL COMPREHENSIVE METABOLIC PANEL SODIUM 135 mEq/L (134 - 153) POTASSIUM 4.1 mEq/L (3.6 - 5.0) CHLORIDE 101 mEq/L (98 - 107) CO2 26 MEQ/L (22 - 30) GLUCOSE 88 MG/DL (65 - 110) BUN 12 MG/DL (7 - 21) CREATININE 0.6 L MG/DL (0.7 - 1.5) BUN/CREAT 20 (8 - 27) TOTAL PROTEIN 7.2 G/DL (6.3 - 8.2) ALBUMIN 4.7 G/DL (3.9 - 5.0) GLOBULIN 2.5 GM/DL (2.4 - 3.2) A/G RATIO 1.9 (0.8 - 2.0) CALCIUM 11.1 H MG/DL (8.4 - 10.2) TOTAL BILI <0.7 MG/DL (0.2 - 1.3) ALKALINE PHOS 65 U/L (38 - 126) SGOT/AST 19 U/L (5 - 40) SGPT/ALT 20 U/L (7 - 56) ANION GAP 8.0 mmol/L (8.0 - 16.0) AGE 40 yrs NON-AA GFR >60 mL/min AFR AMER GFR >60 mL/min Male GFR Interprentation 20-49 yrs >60 mL/min Yaxhzi54-57 yrs >56 mL/min Normal 60-69 yrs >49 mL/min Normal 70-79yrs>42 mL/min Normal 80 and above >35 mL/min Normal Female GFRInterpretation 20-39 yrs >60 mL/min Normal 40-49 yrs >58 mL/minNormal 50-59 yrs >51 mL/min Normal 60-69 yrs >45 mL/min Furode04-66 yrs >39 mL/min Normal 80 and above >32 mL/min NormalCBC w Diff: (VANESSA: 07/22/2020 13:06) ( MsgRcvd 07/22/2020 13:20) Final results Test Result Flag Units (Reference) CBC W/AUTOMATED DIFF COMPLETE BLOOD COUNT WBC 6.7 10/uL (4.2 - 11.0) RBC 4.28 10/uL (4.20 - 5.40) HEMOGLOBIN 12.9 g/dL (12.0 - 16.0) HEMATOCRIT 38.8 % (37.0 - 47.0) MCV 90.7 fL (81.0 - 101) MCH 30.1 pg (27.0 - 34.0) MCHC 33.2 g/dL (31.0 - 36.0) RDW 12.6 % (11.5 - 14.5) PLATELETS 313 10/uL (150 - 450) 5 Clinical Report - Physicians/Mid Levels [facility] Emergency Department [address] [place] [address] Phone #: ext- [phone] 07/22/2020 12:15 Patient: MONICA CAO Sex: F : 1980 Age: 40y MPV 8.4 fL (7.4 - 10.4) NEUT 56.6 % (37.0 - 80.0) LYMPH 34.0 % (25.0 - 40.0) MONO 6.5 % (3.0 - 8.0) EOS 2.1 % (0.0 - 7.0) BASO 0.4 % (0.0 - 2.5) %IG 0.4 H % (0.0 - 0.0) %NRBC 0.0 % (0.0 - 0.0) #NEUT 3.80 10/uL (2.00 - 6.90) #LYMPH 2.29 10/uL (0.60 - 3.40) #MONO 0.44 10/uL (0.00 - 0.90) #EOS 0.14 10/uL (0.00 - 0.70) #BASO 0.03 10/uL (0.00 - 0.20) #IG 0.03 10/uL (0.00 - 0.10) #NRBC 0.00 10/uL (0.00 - 0.00) MANUAL DIFF NOT INDICATED RBC MORPH NOT INDICATED CT Spine Cervical W/O Cont: (VANESSA: 07/22/2020 12:59) ( MsgRcvd 07/22/2020 18:55) In Progress CT CERV SPINE W/O CONTRAS Reason(s): Trauma/Injury TRANSPORTATION: WC IV? O2? Oxygen?(No) Room: ED CT Spine Thoracic W/O Cont: (VANESSA: 07/22/2020 12:59) ( MsgRcvd 07/22/2020 18:55) In Progress CT THORACIC SP W/O CONTR Reason(s): Trauma/Injury TRANSPORTATION: WC IV? O2? Oxygen?(No) Room: ED . Note - Tests: (EKG - NSR, poss. LAE CT C-spine - DJD C4-5. NAD CT T-spine - NAD Shoulder X-rays - NAD).PROGRESS AND PROCEDURESCourse of Care: 15:21 Jul 22 2020. Patient is stable. 15:31 Jul 22 2020. All labs and CTs and X-rays are unremarkable except bacteria in urine. Will discharge shortly. Critical care performed (120 minutes). Time is exclusive of separately billable procedures. Time includes: direct patient care, patient reassessment, interpretation of data (laboratory data and pulse oximetry), review of patient's medical records and documentation of patient care- see progress notes. Procedures included in critical care time: peripheral IV placement and phlebotomy- see progress notes. Disposition: Discharged home in good and improved condition (15:36 Jul 22 2020). Condition: good.CLINICAL IMPRESSION Acute cervical strain. 6 Clinical Report - Physicians/Mid Levels [facility] Emergency Department [address] [place] [address] Phone #: [phone]- [phone] 07/22/2020 12:15 Patient: MONICA CAO Sex: F : 1980 Age: 40y Muscle strain of the right trapezius at the shoulder, left trapezius at the shoulder and upper back. Acute urinary tract infection with cystitis. No hematuria. Not associated with indwelling catheter or obstruction.INSTRUCTIONS Warnings: Further evaluation is necessary. GENERAL WARNINGS: Return or contact your physician immediately if your condition worsens or changes unexpectedly, if not improving as expected, or if other problems arise. Prescription Medications: Percocet 5 mg-325 mg tablet Take 1 tablet every eight hours as needed for 3 days -- for severe pain. Dispense 9 tablet. Refills: 0. Substitution permitted. [facility] [address] [place] [address] [address] ; [place] [address]. FaxNumber: . cyclobenzaprine 10 mg tablet 1 tablet every eight hours as needed for 7 days -- for muscle spasm / pain. Dispense 21 tablet. Refills: 0. Substitution permitted. [facility] [address] [place] [address] [address] ; [place] [address]. . acetaminophen 500 mg tablet Take 2 tablet every six hours as needed for 10 days -- for pain or fever. Dispense 80 tablet. Refills: 0. Substitution permitted. [address] ; [place] [address]. Phone: . Cipro 500 mg tablet Take 1 tablet twice a day for 7 days -- for UTI. Dispense 14 tablet. Refills: 0. Substitution permitted. [address] ; [place] [address]. . Follow-up: Follow up with your doctor in three days if not better. Call for an appointment. Reason for referral: evaluation, treatment and Cervical strain / Shoulder strain / Upper back strain / UTI. Understanding of the discharge instructions verbalized by patient.(Electronically signed by Manish Gu, Physician 07/22/2020 23:11) 7Clinical Report - Phy sicians/Mid Levels [facility] Emergency Department [address] [place] [address] Phone #: [phone] cms- [phone] 07/22/2020 12:15 Patient: MONICA CAO Sex: F : 1980 Age: 40y Name Value Range Interpretation Code Description Data [facility] rce(s) Supporting Document(s) ID Date Data Source [id number] 07/22/2020 12:25:00 PM EDT [facility] Addenda for MONICA CAO VisitID: [id number] Date: 18:31Lab results reviewed, urine culture sensitivity results show Klebsiella oxytoca 10,000-25,000 cfu/mlsensitive to Ciprofloxacin which patient was prescribed.(Electronically signed by Kiki Null RN - 07/26/2020 18:31) Name Value Range Interpretation Code Description Data [facility] Document(s) ID Date Data Source [id number] 07/25/2020 11:22:00 [place] [address] PHONE: [phone] FAX: [phone] Name .................. : NASH ANDERSON Acct Number.................. : [id number] ROOM. ................. : TR-08 Number ................... : [id number] Stay type ............. : E/R Discharge Date......... ... : 07/22/20 Admit Date ......... : 07/22/20 Admit Phys .................... : RICCARDO DIAMOND Date of ....... : 1980 Family Phys ................... : EDIL Gavin Phone .................. : [phone] Age ................................ : 40 Film# .................. .:[id number] Sex ................................. : F Unsigned transcriptions are preliminary reports and do not represent a medical or legal document CHEST 2 VIEWS [id number] COMPLETE:07/22/20 15:26 ARS 54038 Reason (s): Chest Pain CHEST X-RAY: INDICATION: Chest pain. FINDINGS: The cardiac and mediastinal silhouettes appear normal and the lungs are clear. The bones and soft tissues are normal. The upper abdomen is unremarkable. IMPRESSION: No acute disease identifiable. Electronically Reviewed and Signed By Saeed Vela M.D. , 07/25/20 11:22, [facility] Transcribe Initials: DZ , Transcribe Date: 07/23/20 03:09, Dictation Date: Copy for: EMERGENCY DEPT via mode Copy for: 710 MED REC DISCHARGED Page 1 of 1 Name Value Range Interpretation Code Description Data Rosa rce(s) Supporting Document(s) ID Date Data Source [id number] 07/25/2020 11:22:00 [place] [address] PHONE: [phone] FAX: [phone] Name .................. : NASH ANDERSON Acct Number.................. : [id number] ROOM. ................. : TR-08 MR Number ................... : [id number] Stay type ............. : E/R Discharge Date......... ... : 07/22/20 Admit Date ......... : 07/22/20 Admit Phys .................... : RICCARDO DIAMOND Date of ....... : 1980 Family Phys ................... : SAMIRJUAN Gavin Phone .................. : [phone] Age ................................ : 40 Film# .................. .:[id number] Sex ................................. : F Unsigned transcriptions are preliminary reports and do not represent a medical or legal document SHOULDER COMP - BILATERAL [id number] COMPLETE:07/22/20 15:26 ARS 43693 Reason(s): Shoulder Injury BILATERAL SHOULDER X- RAY: INDICATION: Patient fell one year ago. FINDINGS/IMPRESSION: There is no fracture, dislocation, significant degenerative changes or acute soft tissue abnormality of the bilateral shoulders. Electronically Reviewed and Signed By Saeed Vela M.D. , 07/25/20 11:22, [facility] Transcribe Initials: THUY , Transcribe Date: 07/23/20 03:08, Dictation Date: Copy for: EMERGENCY DEPT via mode Copy for: 710 MED REC DISCHARGED Page 1 of 1 Name Value Range Interpretation Code Description Data Rosa rce(s) Supporting Document(s) ID Date Data Source [id number] 07/25/2020 11:21:00 AM EST [facility] [address] [place] [address] PHONE: [phone] FAX: [phone] Name .................. : NASH ANDERSON Acct Number.................. : [id number] ROOM. ................. : TR-08 MR Number ................... : [id number] Stay type ............. : E/R Discharge Date......... ... : 07/22/20 Admit Date ......... : 07/22/20 Admit Phys .................... : RICCARDO DAIMOND Date of ....... : 1980 Family Phys ................... : EDIL Gavin Phone .................. : [phone] Age ................................ : 40 Film# .................. .:[id number] Sex ................................. : F Unsigned transcriptions are preliminary reports and do not represent a medical or legal document CT CERV SPINE W/O CONTRAS [id number] COMPLETE:07/22/20 18:54 KASHIF [id number] Reason(s): Trauma/Injury CT OF THE CERVICAL SPINE WITHOUT CONTRAST: INDICATION: Trauma. FINDINGS: Alignment is maintained. Anterior vertebral body heights are maintained. There is no evidence of fracture or dislocation. Mild degenerative disc disease is noted at C4-5 with mild bony spurring causing moderate right neuroforaminal narrowing and no significant left neuroforaminal narrowing. IMPRESSION: 1. Mild degenerative changes at C4-5. 2. No acute osseous abnormality of the cervical spine. While performing the above CT examination, radiation dose reduction was accomplished utilizing automated exposure control, adjusting of the mA and kV based on the patient's body size and/or the use of imperative reconstructive techniques. CT dose: 820.8 mGycm Electronically Reviewed and Signed By Saeed Vela M.D. , 07/25/20 11:21, [facility] Transcribe Initials: THUY , Transcribe Date: 07/23/20 03:05, Dictation Date: Copy for: EMERGENCY DEPT via modem Copy for: 710 MED REC DISCHARGED Page 1 of 1 Name Value Range Interpretation Code Description Data Rosa rce(s) Supporting Document(s) ID Date Data Source [id number] 07/25/2020 11:21:00 AM [facility] [address] [place] [address] PHONE: [phone] FAX: [phone] Name .................. : NASH ANDERSON Acct Number.................. : [id number] ROOM. ................. : TR-08 MR Number ................... : [id number] Stay type ............. : E/R Discharge Date......... ... : 07/22/20 Admit Date ......... : 07/22/20 Admit Phys .................... : RICCARDO DIAMOND Date of ....... : 1980 Family Phys ................... : EDIL Gavin Phone .................. : [phone] Age ................................ : 40 Film# .................. .:[id number] Sex ................................. : F Unsigned transcriptions are preliminary reports and do not represent a medical or legal document CT THORACIC SP W/O CONTR [id number] COMPLETE:07/22/20 18:54 KASHIF [id number] Reason(s): Trauma/Injury CT OF THE THORACIC SPINE WITHOUT CONTRAST: INDICATION: Trauma. FINDINGS: Alignment is maintained. Anterior vertebral body heights are maintained. There is no evidence of fracture or dislocation. There is no significant degenerative change. IMPRESSION: Normal thoracic spine CT study. While performing the above CT examination, radiation dose reduction was accomplished utilizing automated exposure control, adjusting of the mA and kV based on the patient's body size and/or the use of imperative reconstructive techniques. CT dose: 820.8 mGycm Electronically Reviewed and Signed By Saeed Vela M.D. , 07/25/20 11:21, [facility] Transcribe Initials: DZ , Transcribe Date: 07/23/20 03:03, Dictation Date: Copy for: EMERGENCY DEPT via mode Copy for: 710 MED REC DISCHARGED Page 1 of 1 Name Value Range Interpretation Code Description Data Rosa rce(s) Supporting Document(s) ID Date Data Source [id number] 07/22/2020 07:34:00 PM EDT [facility] [address] [place] [address] RESPIRATORY CARE REPORT ==== ---------NAME------- NUMBER SEX AGE ADMIT DISC. XRAY# F/C JODIE ANDERSON [id number] F [id number] 07/22/20 07/22/20 [id number] X6B E/R DATE OF : 1980 M/R# [id number] #: [id number] TR-08 LOCATION: EMERGENCY DEPT [facility] [address] COMP LETE:07/22/20 15:00 [place] [id number] PHYSICIAN: RICCARDO DIAMOND Name Value Range Interpretation Code Description Data Rosa rce(s) Supporting Document(s) ID Date Data Source [id number] 07/22/2020 02:05:00 PM EDT [facility] Name Value Range Interpretation Code Description Data Rosa rce(s) Supporting Document(s) COMPREHENSIVE METABOLIC PANEL [facility] COMPREHENSIVE METABOLIC PANEL Sodium [Moles/volume] in Serum or Plasma 135 mEq/L 134 - 153 [facility] Potassium [Moles/volume] in Serum or Plasma 4.1 mEq/L 3.6 - 5.0 [facility] Chloride [Moles/volume] in Serum or Plasma 101 mEq/L 98 - 107 [facility] Carbon dioxide, total [Moles/volume] in Serum or Plasma 26 MEQ/L 22 - 30 [facility] Glucose [Mass/volume] in Serum or Plasma 88 MG/DL 65 - 110 [facility] BUN 12 MG/DL 7 - 21 [facility] Creatinine [Mass/volume] in Serum or Plasma 0.6 MG/DL 0.7 - 1.5 L [facility] BUN/CREAT 20 8 - 27 [facility] al Protein [Mass/volume] in Serum or Plasma 7.2 G/DL 6.3 - 8.2 [facility] Albumin [Mass/volume] in Serum or Plasma 4.7 G/DL 3.9 - 5.0 [facility] Globulin [Mass/volume] in Serum by calculation 2.5 GM/DL 2.4 - 3.2 [facility] A/G RATIO 1.9 0.8 - 2.0 [facility] Calcium [Mass/volume] in Serum or Plasma 11.1 MG/DL 8.4 - 10.2 H [facility] Bilirubin.total [Mass/volume] in Serum or Plasma <0.7 MG/DL 0.2 - 1.3 [facility] Alkaline phosphatase [Enzymatic activity/volume] in Serum or Plasma 65 U/L 38 - 126 [facility] Aspartate aminotransferase [Enzymatic activity/volume] in Serum or Plasma 19 U/L 5 - 40 [facility] Alanine aminotransferase [Enzymatic activity/volume] in Seru m or Plasma 20 U/L 7 - 56 [facility] Anion gap 3 in Serum or Plasma 8.0 mmol/L 8.0 - 16.0 [facility] AGE 40 yrs [facility] NON-AA GFR >60 mL/min [facility] ital AFR AMER GFR >60 mL/min [facility] spital Male GFR In terprentation 20-49 yrs >60 mL/min Normal 50-59 yrs >56 mL/min Normal 60-69 yrs >49 mL/min Normal 70-79yrs >42 mL/min Normal 80 and above >35 mL/min Normal Female GFR Interpretation 20-39 yrs >60 mL/min Normal 40-49 yrs >58 mL/min Normal 50-59 yrs >51 mL/min Normal 60-69 yrs >45 mL/min Normal 70-79 yrs >39 mL/min Normal 80 and above >32 mL/min Normal ID Date Data Source [id number] 07/22/2020 02:05:00 PM [facility] Name Value Range Interpretation Code Description Data Rosa rce(s) Supporting Document(s) Thyrotropin [Units/volume] in Serum or Plasma by Detec tion limit <= 0.05 mIU/L 2.05 uIU/mL 0.47 - 5.01 [facility] ID Date Data Source [id number] 07/22/2020 01:55:00 PM [facility] Name Value Range Interpretation Code Description Data Rosa rce(s) Supporting Document(s) TROPONIN T <0.01 NG/ML 0.00 - 0.10 [facility] ospital TROPONIN T0.1 ng/ml Recommended as the c linical threshold value forTroponin T. ID Date Data Source [id number] 07/22/2020 01:50:00 PM EDT [facility] Name Value Range Interpretation Code Description Data Rosa rce(s) Supporting Document(s) HCG SERUM QUAL NEGATIVE NORMAL: NEGATIVE [facility] HCG SERUM QL REENTER NEGATIVE NORMAL: NEGATIVE [facility] { KIT LOT # [id number] ){ KIT EXP DATE 06.28.21 ){ PROCEDURAL CONTROL VALID ) ID Date Data Source [id number] 07/22/2020 01:49:00 PM EDT [facility] Name Value Range Interpretation Code Description Data Rosa rce(s) Supporting Document(s) Fibrin D-dimer FEU [Mass/volume] in Platelet poor plasma 0.27 ug /mL 0.27 - 0.50 [facility] ID Date Data Source [id number] 07/22/2020 01:20:00 PM EDT [facility] Name Value Range Interpretation Code Description Data [facility] rce(s) Supporting Document(s) CBC W/AUTOMATED DIFF [facility] COMPLETE BLOOD COUNT Leukocytes [#/volume] in Blood by Automated count 6.7 10^3/uL 4.2 - 1 1.0 [facility] Erythrocytes [#/volume] in Blood by Automated count 4.28 10^6/uL 4. 20 - 5.40 [facility] Hemoglobin [Mass/volume] in Blood 12.9 g/dL 12.0 - 16.0 [facility] Hematocrit [Volume Fraction] of Blood by Automated count 38.8 % 3 7.0 - 47.0 [facility] Erythrocyte mean corpuscular volume [Entitic volume] by Auto mated count 90.7 fL 81.0 - 101 [facility] Erythrocyte mean corpuscular hemoglobin [Entitic mass] by Automated count 30.1 pg 27.0 - 34.0 [facility] Erythrocyte mean corpuscular hemoglobin concentration [Mass/volume] by Automated count 33.2 g/dL 31.0 - 36.0 [facility] Erythrocyte distribution width [Ratio] by Automated count 12.6 % 11.5 - 14.5 [facility] Platelets [#/volume] in Blood by Automated count 313 10^3/uL 150 - 45 0 [facility] Platelet mean volume [Entitic volume] in Blood by Automated count 8.4 fL 7.4 - 10.4 [facility] Neutrophils/100 leukocytes in Blood by Automated count 56.6 % 37. 0 - 80.0 [facility] Lymphocytes/100 leukocytes in Blood by Manual count 34.0 % 25.0 - 40.0 [facility] Monocytes/100 leukocytes in Blood by Automated count 6.5 % 3.0 - 8.0 [facility] Eosinophils/100 leukocytes in Blood by Automated count 2.1 % 0.0 - 7.0 [facility] Basophils/100 leukocytes in Blood by Automated count 0.4 % 0.0 - 2.5 [facility] %IG 0.4 % 0.0 - 0.0 H [facility] al %NRBC 0.0 % 0.0 - 0.0 [facility] al Neutrophils [#/volume] in Blood by Automated count 3.80 10^3/uL 2.00 - 6.90 [facility] Lymphocytes [#/volume] in Blood by Automated count 2.29 10^3/uL 0.60 - 3.40 [facility] Monocytes [#/volume] in Blood by Automated count 0.44 10^3/uL 0.00 - 0.90 [facility] Eosinophils [#/volume] in Blood by Automated count 0.14 10^3/uL 0.00 - 0.70 [facility] Basophils [#/volume] in Blood by Automated count 0.03 10^3/uL 0.00 - 0.20 [facility] #IG 0.03 10^3/uL 0.00 - 0.10 [facility]sp[facility] #NRBC 0.00 10^3/uL 0.00 - 0.00 [facility]sp[facility] MANUAL DIFF NOT INDICATED [facility] RBC MORPH NOT INDICATED [facility] spital ID Date Data Source [id number] 07/26/2020 04:24:00 PM EST [facility] Name Value Range Interpretation Code Description Data Rosa rce(s) Supporting Document(s) CULTURE URINE [facility] spital _CULTURE URINE_$$[id number]$$[id number]$$[id number]$$138054$$881088$$185621$$179556$$029197$$121669$$ 305872$$721744$$284370$$560605$$109550$$821374$$983148$$313265$$742035$$076220$$ 635530$$702171$$620438$$273534$$627792$$031186$$565805$$212045 -- Continued on next page --Patient: NASH ANDERSON Order: [id number] Page 2Culture: CULTURE URINE Status: Final ==== -- Continued on next page --Patient: NASH ANDERSON Order: [id number] Page 2Culture: CULTURE URINE Status: Prelim =====$$[id number]$$[id number] DATE/TIME: 07/26/2020 16:07Culture: CULTURE URINE Status: FinalIsolate 1 Klebsiella oxytoca Flag: A . . . . . . .410,000-25,000 colony forming units per mL Previous result entered on 07/25/2020 05:53 ET Gram negative rodsUrine Culture,Comprehensive: [id number] oxytoca Flag: APatient: NASH ANDERSON Order: [id number] Page 3Culture: CULTURE URINE Status: Final ====ISOLATE 1 Klebsiella oxytoca Isolate 1Antibiotic PHUC IntUnits ug/mL ----Amoxicillin/Clavulanic Acid S S . . . . . .20-8Ampicillin R R . . . . . .28-1Cefazolin R R . . . . . .76-0Cefepime S S . . . . . .6644-9Ceftriaxone S S . . . . . .141-2Cefuroxime S S . . . . . .145-3Ciprofloxacin S S . . . . . .185- 9Ertapenem S S . . . . . .02813-7Ehluoevejz S S . . . . . .267-5Imipenem S S . . . . . .279-0Levofloxacin S S . . . . . .46953-1Rldepyhfv S S . . . . . .6652- 2Nitrofurantoin I I . . . . . .363-2Tetracycline S S . . . . . .496-0Tobramycin S S . . . . . .508-2Trimethoprim/Sulfa S S . . . . . .516-5P1 Test performed by: [facility] #: [id number] [address] [place] [address] [id number] [facility] [id number] Director : Fredrick Laurent MD NPI #:Plumbing Installer : [email or web address] REF [id number]/[email or web address] REF ID Date Data Source [id number] 07/22/2020 01:31:00 PM EDT [facility] Name Value Range Interpretation Code Description Data Rosa rce(s) Supporting Document(s) [facility]ALYSIS [facility] URINALYS[facility] SOURCE R [facility] COLOR yellow NORMAL: Yellow [facility] CLARITY hazy NORMAL: Clear [facility] Specific gravity of Urine by Test strip 1.025 1.001 - 1.030 [facility] pH 5 5 - 9 [facility] Glucose [Mass/volume] in Urine by Test strip NORM NORMAL: Negat [facility] Bilirubin.total [Presence] in Urine by Test strip NEG NORMAL: Negative [facility] Ketones [Presence] in Urine by Test strip NEG NORMAL: Negative [facility] Protein [Mass/volume] in Urine by Test strip NEG NORMAL: Negat [facility] Nitrite [Presence] in Urine by Test strip NEG NORMAL: Negative [facility] BLOOD 250 NORMAL: Negative [facility] Leukocyte esterase [Presence] in Urine by Test strip 500 KAREL L: Negative [facility] Urobilinogen [Mass/volume] in Urine by Test strip NOR less aguila n 1.0 mg/dL [facility] MICROSCOPIC See Below [facility] ital WBC 15 - 20 NORMAL: NONE SEEN A [facility] Erythrocytes [#/volume] in Urine by Test strip 7 - 10 NORMAL: NON E SEEN A [facility] EPITHELIAL MANY NORMAL: NONE SEEN A [facility] Bacteria [Presence] in Urine sediment by Light microscopy 2+ MOD NORMAL: NONE SEEN A [facility] Procedure Social History Code Duration Value Status Description Data Source(s ) Smoking 09/01/2020 12:00:00 AM EST Former Smoker completed Former Smoker eCW1 ([facility]) Smoking 08/01/2020 12:00:00 AM EST Former Smoker completed Former Smoker eCW1 ([facility]) Vital Signs ID Date Data Source UNK Name Value Range Interpretation Code Description Data Source(s) Diastolic blood pressure 94 mm[Hg] 94 mm[Hg] eCW1 ([facility]) Systolic blood pressure 153 mm[Hg] 153 mm[Hg] e CW1 ([facility]) Body temperature 98.2 [degF] 98.2 [degF] eCW1 ( [facility]) Respiratory rate 16 /min 16 /min eCW1 ([facility]) Heart rate 103 /min 103 /min eCW1 ([facility]) Body mass index (BMI) [Ratio] 34.54 kg/m2 34.54 kg/m2 eCW1 ([facility]) Body height [in_i] eCW1 ([facility]) Body weight 204.4 [lb_av] 204.4 [lb_av] eCW1 (Replaced by [facility]) Diastolic blood pressure 84 mm[Hg] 84 mm[Hg] eCW1 ([facility]) Systolic blood pressure 130 mm[Hg] 130 mm[Hg] e CW1 ([facility]) Body mass index (BMI) [Ratio] 36.33 kg/m2 36.33 kg/m2 eCW1 ([facility]) Body height [in_i] eCW1 ([facility]) Body weight 215 [lb_av] 215 [lb_av] eCW1 ([facility]) Patient Treatment Plan of Care Planned Activity Planned Date Details Description Data Source (s) Loestrin 1.5/30 (21) 1.5-30 MG-MCG 12/28/2019 12:00:00 AM EDT eCW1 ([facility]) Loestrin 1.5/30 (21) 1.5-30 MG-MCG 12/28/2019 12:00:00 AM EDT eCW1 ([facility]) Loestrin 1.5/30 (21) 1.5-30 MG-MCG 12/28/2019 12:00:00 AM EDT eCW1 ([facility]) Loestrin 1.5/30 (21) 1.5-30 MG-MCG 12/28/2019 12:00:00 AM EDT eCW1 ([facility])
[2020-11-07] MEDS ORDERED: PHEN37.52 PO (19:46)
[2020-11-07] MEDS ORDERED: LARI1TAB7 PO (19:46)
[2020-11-07] MEDS ORDERED: LORazepam 2 MG/ML VIAL IV STA (19:52)
--- OUTSIDE RECORDS SUMMARY | 2020-11-07 19:54 | CCD ---
Author Author [facility] Organization [facility] Address Unknown Phone Unavailable Support Name Relationship Address Phone ESTHER HINDS Next Of Kin Unknown MONICA CAO Next Of Kin [address] [place] [address] JOHNNY PACHECO Next Of Kin - CORBY JORGE [address] [facility]* [place] [address] [facility] Next Of Kin [address] [place] [address] [facility]* Next Of Kin [address] [place] [address] [facility] [place] [address] LACHO ATKINSON Next Of Kin [address] [facility] [address] [place] [address] [facility] Next [place] ? [place] [address] [facility] [employer] [place] Next Of Kin [address] [place] [address] UE Next Of Kin Unknown Unavailable [place] Next Of Kin [address] [place] [address] [employer] Next Of Kin [address] [place] [address] ESTHER ATKINSON Next Of Kin [address] [facility] [address] [place] [address] [place] [address] Jeff CAO Next [place] [address] [place] [address] Lacho Atkinson ECON [address] [facility] [address] [place] [phone] Unavailable Care Team Providers Care History Department Chair Name Role Phone Rabago, C Amira PA [...] VENERUS, Maki JACKSON MD Unavailable Unavailable VENERUS, J MANISH [...] is protected by Article 27-F of the [facility] Public Health law. If you continue you may have access to information: Regarding HIV / AIDS; Provided by facilities licensed or operated by the [facility] Office of Mental Health; or Provided by the [facility] Office for People With Developmental Disabilities. If such information is present, then the following [facility] mandated warning applies: This information has been [...] law may result in a fine or fci sentence or both. A general authorization for the release of medical or other information is NOT sufficient authorization for further disc losure. Allergies and Adverse Reactions Type Description Substance Reaction Status Data Source(s ) Drug allergy AMOXICILLIN AMOXICILLIN [facility] CLASS ASA (aspirin) ASA (aspirin) [facility] Family History Family Member Name Family Member Gender Family Member Status Date o f Status Description Data Source(s) Unknown Unknown Problem [facility] ([facility], ) mitral valve prolapse Encounters Encounter Providers Location Date Indications Data Source(s ) Emergency Attender: JEREMY GREERConsultant: HAMILTON SOLO DO 11/06/2020 02:03:00 PM EST - 11/06/2020 04:20:00 PM EST [facility] Patient discharged. Outpatient [address] [facility], [facility] [address] 09/01/2020 12:00:00 AM EST eCW1 ([facility]) Outpatient [address] [facility] [address] 08/03/2020 12:00:00 AM EST eCW1 ([facility]) Emergency Attender: ARTEMIO CASEYConsultant: HAMILTON MARTINEZ DO 08/01/2020 08:16:00 PM EST - 08/01/2020 09:31:00 PM EST [facility] Patient discharged. Unknown [address] [facility] [address] 07/28/2020 12:00:00 AM EST eCW1 ([facility]) Emergency Attender: MANISH GU MDConsultant: HAMILTON VALLE DO 07/22/2020 12:25:00 PM EDT - 07/22/2020 04:04:00 PM EDT [facility] Patient discharged. Outpatient Attender: NATALIA OWENPSYCHIATRIC 03/01/2020 07:49:06 PM EDT [facility] [address] [place] [address] 02/16/2020 12:00:00 AM EDT eCW1 ([facility]) [facility] [address] [place] [address] 12/28/2019 12:00:00 AM EDT eCW1 ([facility]) Outpatient Referrer: Amira ORANTES 10/14/2019 07:07:00 PM EST [facility] Rad[facility] Imaging [address], [facility] [address] 10/01/2019 12:00:00 AM EST eCW1 ([facility]) Medications Medication Brand Name Start Date Product Form Dose Route Admi nistrative Instructions Pharmacy Instructions Status Indications Reaction Description Data Source(s) Loestrin 1.5/30 (21) 1.5-30 MG-MCG Loestrin 1.5/30 (21) 1.5- 30 MG-MCG 12/28/2019 12:00:00 AM EDT active 1 tablet eCW1 ([facility]) Loestrin 1.5/30 (21) 1.5-30 MG-MCG Loestrin 1.5/30 (21) 1.5- 30 MG-MCG 12/28/2019 12:00:00 AM EDT 1.0 {tablet} active Loestrin 1.5/30 (21) 1.5-30 MG-MCG eCW1 ([facility]) Loestrin 1.5/30 (21) 1.5-30 MG-MCG Loestrin 1.5/30 (21) 1.5- 30 MG-MCG 12/28/2019 12:00:00 AM EDT active 1 tablet eCW1 ([facility]) Loestrin 1.5/30 (21) 1.5-30 MG-MCG Loestrin 1.5/30 (21) 1.5- 30 MG-MCG 12/28/2019 12:00:00 AM EDT 1.0 {tablet} active Loestrin 1.5/30 (21) 1.5-30 MG-MCG eCW1 ([facility]) Loestrin 1.5/30 (21) 1.5-30 MG-MCG Loestrin 1.5/30 (21) 1.5- 30 MG-MCG 12/28/2019 12:00:00 AM EDT 1.0 {tablet} active Loestrin 1.5/30 (21) 1.5-30 MG-MCG eCW1 ([facility]) Insurance Providers Payer name Policy type / Coverage type Policy ID Covered republican ID Covered republican's relationship to goss Policy Goss Plan Information VENU [id number] SP [id number] [facility] COMMUNITY PLAN MCDO [id number] SP [id number] [facility] COMMUNITY PLAN XIX [id number] 18 [id number] [facility] O [id number] S [id number] [facility] COMMUNITY PLAN MCDO [id number] SP [id number] [facility] MEDICARE COMPLETE - O/P [id number] 18 [id number] [facility] Health Maintenance Organization (HMO) [id number] Self [id number] [facility] MEDICARE COMPLETE -PHYS [id number] 18 [id number] [facility]-Medicaid [id number] ANSI-Medicaid [id number] [facility]-Medicaid [id number] [facility] Health Maintenance Organization (O) [id number] Self [id number] ANSI-Medicaid [id number] [facility] MEDICAID [id number] S [id number] [facility] Health Maintenance Organization (HMO) [id number] Self [id number] ANSI-Medicaid [id number] [facility] [id number] S [id number] SELF PAY UNAVAILABLE S UNAVAILA BLE [facility] COMMUNITY PLAN [facility] [id number] SP [id number] [facility] Health Maintenance Organization (HMO) [id number] Self [id number] [facility] MCDO [id number] SP [id number] [facility] Health Maintenance Organization (HMO) [id number] Self [id number] [facility] Health Maintenance Organization ([facility]) [id number] Self [id number] [facility] Health Maintenance Organization ([facility]) [id number] Self [id number] [employer]() Workers Compensation [id number] Self [id number] [facility] Commercial [id number] Self [id number] [employer]() Workers Compensation [id number] Self [id number] Kristie() Workers Compensation [id number] Self [id number] [facility] Medicaid F [id number] SELF [id number] [employer]() Workers Compensation [id number] Self [id number] [employer]() Workers Compensation [id number] Self [id number] [facility] [id number] SP [id number] SELF PAY ONLY [id number] SP [id number] [facility] Health Maintenance Organization ([facility]) Self [facility] [id number] SP [id number] MEDICAID [id number] SP [id number] SELF PAY UNAVAILABLE SP UNAVAILA BLE P UNAVAILABLE UNAVAILA BLE [employer] [employer] [id number] SP [id number] [employer] [employer] [id number] SP [id number] [employer] P [id number] S [id number] [employer] [employer] [facility] [id number] SP [id number] KRISTIE [id number] SP [id number] OTHER WORKERS COMPENSATION [id number] SP [id number] [facility] BLUE [id number] SP [id number] Problems, Conditions, and Diagnoses Code Display Name Description Problem Type Effective Dates Data Source(s) M50.321 [id number] Other cervical disc degeneration at C4-C5 level Problem 09/01/2020 12:00:00 AM EST eCW1 ([facility]) R350 Frequency of micturition Frequency of micturition Diag nosis 08/01/2020 08:16:00 PM EST [facility] B373 Candidiasis of vulva and vagina Candidiasis of vulva a nd vagina Diagnosis 08/01/2020 08:16:00 PM [facility] R300 Dysuria Dysuria Diagnosis 08/01/2020 08:16:00 PM ES T [facility] [id number] Unspecified place in unspeci fied non-institutional (private) residence as the place of occurrence of the external cause Unspecified place in unspecified non-institutional (private) residence as the place of occurrence of the external cause Diagnosis 07/22/2020 12:25:00 PM EDT [facility] [id number] Fall (on) (from) other stairs and steps, initial encounter Fall (on) (from) other stairs and steps, initial encounter Diagnosis 07/22 12:25:00 PM EDT [facility] [id number] Personal history of nicotine dependence Personal history of nicotine dependence Diagnosis 07/22/2020 12:25:00 PM EDT [facility] [id number] Strain of muscle, fascia and tendon at n jessenia level, initial encounter Strain of muscle, fascia and tendon at neck level, initial encounter Diagnosis 07/22/2020 12:25:00 PM EDT [facility] M542 Cervicalgia Cervicalgia Diagnosis 07/22/2020 12:25:00 PM EDT [facility] Results ID Date Data Source [id number] 11/06/2020 02:03:00 PM [facility] 1 OrderSheet [facility] Emergency Department [address] [place] [address] Phone #: ext- [phone] 11/06/2020 13:55 Patient: MONICA CAO Sex: F : 1980 Age: 40yWEIGHT:79.3 kg (S) HEIGHT:64 inches (S) BMI:30.0ALLERGIES: PenicillinsCHIEF COMPLAINT: wants test, dysuriaDIAGNOSIS: CystitisLAB ORDERSOrder Description Priority Entered Acknowledged InitialedUrinalysis (Clean STAT 14:40 11/06/2020 15:02 [place],Catch) Domenic Collazo R.N. P.A.-C;Culture, Urine STAT 14:40 11/06/2020 15:02 [place],(Urine, Clean Domenic Collazo R.N.Catch) P.A.-C;HCG Serum Qual [...] rce(s) Supporting Document(s) ID Date Data Source [id number] 11/06/2020 02:03:00 PM EST [facility] 1 Medication Reconciliation Report [facility] Emergency Department [address] [place] [address] Phone #: ext- [phone] 11/06/2020 13:55 Patient: [...] Dispense 14 capsule. Refills: 0.Substitution permitted.Pharmacy - [facility] [phone] ; [place] [id number]. . -- Domenic Ambriz P.A.-C Name Value Range Interpretation Code Description Data Rosa rce(s) Supporting Document(s) ID Date Data Source [id number] 11/06/2020 02:03:00 PM [facility] 1 Medication Administration Record [facility] Emergency Department [address] [place] [address] Phone #: ext- [phone] 11/06/2020 13:55 Patient: MONICA CAO Sex: F : 1980 Age: 40yWeight: 79.3 kgHeight/Length: 64 inBMI: 30ALLERGIES: PenicillinsDate/Time Medication Administered Medication Ordered Name Value Range Interpretation Code Description Data [facility] Supporting Document(s) ID Date Data Source [id number] 11/06/2020 02:03:00 PM [facility] 1 General Instructions [facility] Emergency Department [address] [place] [address] Phone #: [phone]- [phone] 11/06/2020 13:55 Patient: MONICA CAO Sex: F [...] Dispense 14 capsule. Refills: 0.Substitution permitted.Pharmacy - [facility] [phone] ; [place] [address]. .Follow-up:Return to the emergency department as needed. Follow up with your healthcare provider in about twodays if not better. Call for an appointment.Understanding of the discharge instructions verbalized by patient. ADDITIONAL INFORMATIONBladder Infection, Female (Adult) 2 General Instructions [facility] Emergency Department [address] [place] [address] Phone #: ext- [phone] 11/06/2020 13:55 Patient: MONICA CAO Sex: F [...] Urgent need to urinate 3 General Instructions [facility] Emergency Department [address] [place] [address] Phone #: ext- [phone] 11/06/2020 13:55 Patient: [...] a diaphragm for controlTreatment 4 General Instructions [facility] Emergency Department [address] [place] [address] Phone #: ext- [phone] 11/06/2020 13:55 Patient: [id number] Sex: F : 1980 Age: 40yBladder infections [...] your healthcare provider.Follow-up care 5 General Instructions [facility] Emergency Department [address] [place] [address] Phone #: ext- [phone] 11/06/2020 13:55 Patient: [...] if the results will affect your treatment.Call [phone] if any of the following occur: [...] swelling in the outer vaginal area (labia) [id number] [employer] [address] [place] [address]. All rights reserved. This information is not intended as asubstitute for professional medical care. Always follow your healthcare professional's instructions.Blood in the Urine 6 General Instructions [facility] Emergency Department [address] [place] [address] Phone #: ext- [phone] 11/06/2020 13:55 Patient: [...] using these medicines.Follow-up care 7 General Instructions [facility] Emergency Department [address] [place] [address] Phone #: [phone]- [phone] 11/06/2020 13:55 Patient: MONICA CAO Sex: F [...] nose or gums or easy bruising [employer] [address] [place] [address]. All rights reserved. This information is not intended as asubstitute for professional medical care. Always follow your healthcare professional's instructions. You have been given the following additional information: Bladder Infection, Female (Adult) Hematuria(Electronically signed by Domenic Ambriz P.A.-C 11/06/2020 16:42) Name Value Range Interpretation Code Description Data Rosa rce(s) Supporting Document(s) ID Date Data Source [id number] 11/06/2020 02:03:00 PM EST [facility] 1 Clinical Report - Nurses [facility] Emergency Department [address] [place] [address] Phone #: [phone]- [phone] 11/06/2020 13:55 Patient: MONICA CAO Sex: F [...] problems.ADDITIONAL SURGERIES:Dilatation Curettage. --13:59 11/06/20 Kiki Null RN.Zsavkmc43:56 11/06/20.PAST MEDICAL HX: Immunizations: up-to-date. Last normal [...] of CRE. 2 Clinical Report - Nurses [facility] Emergency Department [address] [place] [address] Phone #: ext- [phone] 11/06/2020 13:55 Patient: MONICA CAO Sex: F [...] FUNCTIONAL ASSESSMENT: Functional assessment: no impairments no uhber. LEARNING NEEDS ASSESSMENT: The learning needs assessment [...] 16:20 11/06/20. 3 Clinical Report - Nurses [facility] Emergency Department [address] [place] [address] Phone #: ext- [phone] 11/06/2020 13:55 Patient: MONICA CAO Sex: F : 1980 Age: 40y Departure time: 16:20 11/06/2020. Condition at departure: improved. No learning barriers present. Discharge instructions provided and reviewed with the patient. Reviewed warnings. Reviewed medication(s) side effects, precautions, dosing and course information. Prescription(s) sent electronically to pharmacy ([facility]). Reviewed referral to a primary care physician for followup. Patient verbalized understanding. Written instructions provided in Mexican. The patient was discharged by the physician surgical services assistant. She was discharged home and unaccompanied at [...] rce(s) Supporting Document(s) ID Date Data Source [id number] 11/06/2020 02:03:00 PM [facility] 1 Clinical Report - Physicians/Mid Levels [facility] Emergency Department [address] [place] [address] Phone #: ext- [phone] 11/06/2020 13:55 Patient: [...] Curettage. 2 Clinical Report - Physicians/Mid Levels [facility] Emergency Department [address] [place] [address] Phone #: ext- [phone] 11/06/2020 13:55 Patient: MONICA CAO Sex: F [...] NONE 3 Clinical Report - Physicians/Mid Levels [facility] Emergency Department [address] [place] [address] Phone #: ext- [phone] 11/06/2020 13:55 Patient: MONICA CAO Sex: F : 1980 Age: 40y RBC 0 - 1 (NORMAL: NONE EPITHELIAL FEW (NORMAL: NONE BACTERIA Trace (NORMAL: NONE Beta-HCG, Qual Serum: (VANESSA: 11/06/2020 14:47) ( MsgRcvd 11/06/2020 15:42) Final results Test Result Flag Units (Reference) HCG SERUM QUAL NEGATIVE (NORMAL: NEGAT HCG SERUM QL REENTER NEGATIVE (NORMAL: NEGAT { KIT LOT # [id number] ){ KIT EXP DATE 04.22.22 ){ PROCEDURAL [...] hematuria. 4 Clinical Report - Physicians/Mid Levels [facility] Emergency Department [address] [place] [address] Phone #: ext- [phone] 11/06/2020 13:55 Patient: MONICA CAO Sex: F [...] capsule. Refills: 0. Substitution permitted. Pharmacy - [facility] [address] ; [place] [address]. FaxNumber: . Follow-up: Return to the emergency department as needed. Follow up with your healthcare provider in about two days if not better. Call for an appointment. Understanding of the discharge instructions verbalized by patient.(Electronically signed by Domenic Ambriz P.A.-C 11/06/2020 16:42) Name Value Range Interpretation Code Description Data Rosa rce(s) Supporting Document(s) ID Date Data Source [id number] 11/06/2020 03:29:00 PM EST [facility] Name Value Range Interpretation Code Description Data Rosa rce(s) Supporting Document(s) HCG SERUM QUAL NEGATIVE NORMAL: NEGATIVE [facility] HCG SERUM QL REENTER NEGATIVE NORMAL: NEGATIVE Ca [facility] { KIT LOT # [id number] ){ KIT EXP DATE 04.22.22 ){ PROCEDURAL CONTROL VALID ) ID Date Data Source [id number] 11/06/2020 03:02:00 PM EST [facility] Name Value Range Interpretation Code Description Data Rosa rce(s) Supporting Document(s) URINALYSIS [facility] SOURCE R [facility] COLOR yellow NORMAL: Yellow [facility] CLARITY clear NORMAL: Clear [facility] Specific gravity of Urine by Test strip 1.020 1.001 - 1.030 [facility] pH 6 5 - 9 [facility] al Glucose [Mass/volume] in Urine by Test strip NORM NORMAL: Negat [facility] Bilirubin.total [Presence] in Urine by Test strip NEG NORMAL: Negative [facility] Ketones [Presence] in Urine by Test strip NEG NORMAL: Negative [facility] Protein [Mass/volume] in Urine by Test strip NEG NORMAL: Negat [facility] Nitrite [Presence] in Urine by Test strip NEG NORMAL: Negative [facility] BLOOD 150 NORMAL: Negative [facility] Leukocyte esterase [Presence] in Urine by Test strip 25 KAREL L: Negative [facility] Urobilinogen [Mass/volume] in Urine by Test strip NOR less aguila n 1.0 mg/dL [facility] MICROSCOPIC See Below [facility] ital WBC 0 - 1 NORMAL: NONE SEEN [facility] Erythrocytes [#/volume] in Urine by Test strip 0 - 1 NORMAL: NON E SEEN [facility] EPITHELIAL FEW NORMAL: NONE SEEN [facility] Bacteria [Presence] in Urine sediment by Light microscopy Tr benny NORMAL: NONE SEEN [facility] ID Date Data Source PAP REQUEST FOR SERVICE 08/03/2020 12:00:00 AM EST [facility] ([facility]) Name Value Range Interpretation Code Description Data Rosa rce(s) Supporting Document(s) PAP REQUEST FOR SERVICE eCW1 ( [facility]) ID Date Data Source [id number] 08/01/2020 08:16:00 PM EST [facility] 1 OrderSheet [facility] Emergency Department [address] [place] [address] Phone #: ext- [phone] 08/01/2020 20:00 Patient: [...] rce(s) Supporting Document(s) ID Date Data Source [id number] 08/01/2020 08:16:00 PM EST [facility] 1 Medication Reconciliation Report [facility] Emergency Department [address] [place] [address] Phone #: ext- [phone] 08/01/2020 20:00 Patient: MONICA CAO Sex: F [...] Dispense 1box. Refills: 0. Substitution permitted.Pharmacy - [facility] [phone] ; [place] [address]. FaxNumber: [phone]. -- LAMBERTO Phillip Name Value Range Interpretation Code Description Data Rosa rce(s) Supporting Document(s) ID Date Data Source [id number] 08/01/2020 08:16:00 PM [place] [address] Medication Administration Record [facility] Emergency Department [address] [place] [address] Phone #: ext- [phone] 08/01/2020 20:00 Patient: MONICA CAO Sex: F : 1980 Age: 40yWeight: 88.4 kgHeight/Length: 64 inBMI: 33.5ALLERGIES: Aspirin, AmoxicillinDate/Time Medication Administered Medication Ordered Name Value Range Interpretation Code Description Data Rosa rce(s) Supporting Document(s) ID Date Data Source [id number] 08/01/2020 08:16:00 PM [facility] 1 General Instructions [facility] Emergency Department [address] [place] [address] Phone #: ext- [phone] 08/01/2020 20:00 Patient: MONICA CAO Sex: F : 1980 Age: 40yAcute mild jana vaginitisINSTRUCTIONSYour Current Medications: Your current home medications have been reviewed.CONTINUE TAKING THE FOLLOWING MEDICATIONS: Control Pills*.Prenate Oral.Prescription Medications:3 Day Vaginal 200 mg/5 gram (4 %) cream Insert 1 applicatorful once a day for 3 days -- Dispense 1box. Refills: 0. Substitution permitted.Pharmacy - [facility] [address] ; [place] [id number]. .Follow-up:Follow up with your doctor as scheduled. Reason for referral: evaluation and treatment. Summary of careprovided to patient.Understanding of the discharge instructions verbalized by patient. ADDITIONAL INFORMATIONYeast Infection (Jana Vaginal Infection) 2 General Instructions [facility] Emergency Department [address] [place] [address] Phone #: ext- [phone] 08/01/2020 20:00 Patient: [...] Note: Don't try to treat yourself using hoeh-kbl-fadbzsl products without talking to your provider first. He or she will let you know if this is a good option for you. Ask your provider what steps you can take to help reduce your risk of having a yeast infection 3 General Instructions [facility] Emergency Department [address] [place] [address] Phone #: [phone]- [phone] 08/01/2020 20:00 Patient: MONICA CAO Sex: F [...] as a rash, joint pain, or sores. [phone] [employer]. [address] [place] [address]. All rights reserved. This information is not intended as asubstitute for professional medical care. Always follow your healthcare professional's instructions. You have been given the following additional information: Yeast Infection, Vaginal (Jana Vaginal Infection)(Electronically signed by LAMBERTO Phillip 08/01/2020 22:04) Name Value Range Interpretation Code Description Data Rosa rce(s) Supporting Document(s) ID Date Data Source [id number] 08/01/2020 08:16:00 PM EST [facility] 1 Clinical Report - Nurses [facility] Emergency Department [address] [place] [address] Phone #: [phone]- [phone] 08/01/2020 20:00 Patient: MONICA CAO Sex: F [...] LAMBERTO Phillip. 2 Clinical Report - Nurses [facility] Emergency Department [address] [place] [address] Phone #: ext- [phone] 08/01/2020 20:00 Patient: [...] integrity risk identified. --20:13 08/01/20 SantanaJaya juarez.PHYSICAL [id number] 08/01/20. Ambulatory to room. Patient gowned.GENERAL / [...] reach. Bed 3 Clinical Report - Nurses [facility] Emergency Department [address] [place] [address] Phone #: ext- [phone] 08/01/2020 20:00 Patient: MONICA CAO [facility]#: [id number] Sex: F : 1980 Age: 40y placed [...] Patient verbalized understanding. Written instructions provided in Mexican. The patient was discharged by the physician surgical services assistant. She was discharged home. She left ambulatory [...] rce(s) Supporting Document(s) ID Date Data Source [id number] 08/01/2020 08:16:00 PM [facility] 1 Clinical Report - Physicians/Mid Levels [facility] Emergency Department [address] [place] [address] Phone #: ext- [phone] 08/01/2020 20:00 Patient: [...] Moderate(hives) 2 Clinical Report - Physicians/Mid Levels [facility] Emergency Department [address] [place] [address] Phone #: ext- [phone] 08/01/2020 20:00 Patient: MONICA CAO Sex: F [...] PROCEDURES 3 Clinical Report - Physicians/Mid Levels [facility] Emergency Department [address] [place] [address] Phone #: ext- [phone] 08/01/2020 20:00 Patient: MONICA CAO Sex: F : 1980 Age: 40y Course of Care: 21:Aug 01 2020. Evaluation after observation. (Discussed exam findings and UA and will treat for Candidiasis and pt has follow up with hand endband cutter and PCM). Patient counseled in person regarding [...] box. Refills: 0. Substitution permitted. Pharmacy - [facility] [id number] ; [place] [address]. . Follow-up: Follow up with your doctor as scheduled. Reason for referral: evaluation and treatment. Summary of care provided to patient. Understanding of the discharge instructions verbalized by patient.(Electronically signed by LAMBERTO Phillip 08/01/2020 22:04) Name Value Range Interpretation Code Description Data Rosa rce(s) Supporting Document(s) ID Date Data Source [id number] 08/03/2020 08:34:00 PM [facility] Name Value Range Interpretation Code Description Data Rosa rce(s) Supporting Document(s) Chlamydia trachomatis rRNA [Presence] in Unspecified specimen by Probe and target amplification method Negative Negative [facility] Neisseria gonorrhoeae rRNA [Presence] in Unspecified specimen by Probe and target amplification method Negative Negative [facility] ID Date Data Source [id number] 08/01/2020 08:40:00 PM [facility] Name Value Range Interpretation Code Description Data [facility] rce(s) Supporting Document(s) [facility]IS [facility] SOURCE R [facility] COLOR yellow NORMAL: Yellow [facility] CLARITY Hazy NORMAL: Clear [facility] Specific gravity of Urine by Test strip 1.015 1.001 - 1.030 [facility] pH 6 5 - [address] [facility] Glucose [Mass/volume] in Urine by Test strip NORM [facility]: [facility] Bilirubin.total [Presence] in Urine by Test strip NEG NORMAL: Negative [facility] Ketones [Presence] in Urine by Test strip NEG NORMAL: Negative [facility] Protein [Mass/volume] in Urine by Test strip NEG [facility]AL: [facility] Nitrite [Presence] in Urine by Test strip NEG NORMAL: Negative [facility] BLOOD 150 NORMAL: Negative [facility] Leukocyte esterase [Presence] in Urine by Test strip NEG KAREL L: Negative [facility] Urobilinogen [Mass/volume] in Urine by Test strip NOR less aguila n 1.0 mg/dL [facility] MICROSCOPIC See Below [facility] ital WBC None Seen NORMAL: NONE SEEN [facility] Erythrocytes [#/volume] in Urine by Test strip 0 - 1 NORMAL: NON E SEEN [facility] EPITHELIAL FEW NORMAL: NONE SEEN [facility] ID Date Data Source [id number] 07/22/2020 12:25:00 PM EDT [facility] 1 OrderSheet [facility] Emergency Department [address] [place] [address] Phone #: ext- [phone] 07/22/2020 12:15 Patient: [...] Physician; Reason for Study: Trauma/Injury 2 OrderSheet [facility] Emergency Department [address] [place] [address] Phone #: ext- [phone] 07/22/2020 12:15 Patient: [...] InitialedCipro PO 500 mg 15:00 07/22/2020 15:29 rFank Hoffmann RN Physician;GENERAL ORDERSOrder Description Priority Entered [...] rce(s) Supporting Document(s) ID Date Data Source [id number] 07/22/2020 12:25:00 PM EDT [facility] 1 Medication Reconciliation Report [facility] Emergency Department [address] [place] [address] Phone #: [phone] bqb- [phone] 07/22/2020 12:15 Patient: MONICA CAO Sex: F [...] severe pain.Dispense 9 tablet. Refills: 0. Substitution permitted.[facility] [address] ; [place] [address]. .cyclobenzaprine 10 mg tablet 1 tablet every eight hours as needed for 7 days -- for muscle spasm / pain.Dispense 21 tablet. Refills: 0. Substitution permitted.[facility] [address] ; [place] [address]. .acetaminophen 500 mg tablet Take 2 tablet every six hours as needed for 10 days -- for pain or fever.Dispense 80 tablet. Refills: 0. Substitution permitted.[facility] [address] ; [place] [address]. .Cipro 500 mg tablet Take 1 tablet twice a day for 7 days -- for UTI. Dispense 14 tablet. Refills: 0. 2 Medication Reconciliation Report [facility] Emergency Department [address] [place] [address] Phone #: ext- [phone] 07/22/2020 12:15 Patient: MONICA CAO Sex: F : 1980 Age: 40ySubstitution permitted.Pharmacy - [facility] [address] ; [place] [address]. . -- Physician Mary Name Value Range Interpretation Code Description Data Rosa rce(s) Supporting Document(s) ID Date Data Source [id number] 07/22/2020 12:25:00 PM EDT [facility] 1 Medication Administration Record [facility] Emergency Department [address] [place] [address] Phone #: [phone] puy- [phone] 07/22/2020 12:15 Patient: MONICA CAO Sex: F : 1980 Age: 40yWeight: 88.9 kgHeight/Length: 64 inBMI: 33.7ALLERGIES: Penicillins Date/Time Medication Administered Medication OrderedGiven CIPRO [PO] (CIPROFLOXACIN) Cipro PO 500 mg15:29 07/22/2020 Dose: 500 mg Tablets Roberto Carlos Hoffmann RN Name Value Range Interpretation Code Description Data Rosa rce(s) Supporting Document(s) ID Date Data Source [id number] 07/22/2020 12:25:00 PM EDT [facility] 1 General Instructions [facility] Emergency Department [address] [place] [address] Phone #: ext- [phone] 07/22/2020 12:15 [facility]: [id number] Sex: F : 1980 Age: 40yAcute cervical [...] severe pain.Dispense 9 tablet. Refills: 0. Substitution permitted.[facility] [address] ; [place] [address]. .cyclobenzaprine 10 mg tablet 1 tablet every eight hours as needed for 7 days -- for muscle spasm / pain.Dispense 21 tablet. Refills: 0. Substitution permitted.[facility] [address] ; [place] [address]. FaxNumber: .acetaminophen 500 mg tablet Take 2 tablet every six hours as needed for 10 days -- for pain or fever.Dispense 80 tablet. Refills: 0. Substitution permitted.[facility] [address] ; [place] [address]. .Cipro 500 mg tablet Take 1 tablet twice a day for 7 days -- for UTI. Dispense 14 tablet. Refills: 0.Substitution permitted.Pharmacy - [facility] [address] ; [place] [address]. .Follow-up:Follow up with your doctor in three days if not better. Call for an appointment. Reason for referral:evaluation, treatment and Cervical strain / Shoulder strain / Upper back strain / UTI.Understanding of the discharge instructions verbalized by patient. 2 General Instructions [facility] Emergency Department [address] [place] [address] Phone #: ext- [phone] 07/22/2020 12:15 Patient: MONICA CAO Sex: F [...] alternate ice and heat. You may use mzcv-swk-ikbaxtp pain medicine to control pain, unless another [...] may affect your care. 3 General Instructions [facility] Emergency Department [address] [place] [address] Phone #: [phone] kqq- [phone] 07/22/2020 12:15 Patient: MONICA CAO Sex: F : 1980 Age: 40yCall 911Call 911 if you have: Neck swelling, difficulty or painful swallowing Trouble breathing Chest painWhen to seek medical adviceCall your healthcare provider right away if any of these occur: Pain becomes worse or spreads into your arms or legs Weakness or numbness in one or both arms or legs [phone] [place] [address], [place] [address]. All rights reserved. This information is not intended as asubstitute for professional medical care. Always follow your healthcare professional's instructions.Neck Pain There are several possible causes of neck pain when thereis no injury: You can get a minor ligament sprain or muscle strain from a sudden minor neck movement. 4 General Instructions [facility] Emergency Department [address] [place] [address] Phone #: ext- [phone] 07/22/2020 12:15 Patient: [...] delay the healing process. You may use nulx-abr-kbruhkv pain medicine to control pain, unless another medicine was prescribed. If you have chronic liver or kidney disease or ever had a stomach ulcer or GI bleeding, talk with your healthcare provider before using these medicines. 5 General Instructions [facility] Emergency Department [address] [place] [address] Phone #: [phone] oip- [phone] 07/22/2020 12:15 [facility]: [id number] Sex: F : 1980 Age: 40yFollow-up careFollow up with your healthcare provider if your symptoms do not show signs of improvement after oneweek. Physical therapy or further tests may be needed.If X-rays, CT scans, or MRI scans were taken, you will be told of any new findings that may affectyour care.Call [phone] if you have: Sudden weakness or numbness in one or both arms Neck swelling, difficulty or painful swallowing Difficulty breathing Chest painWhen to seek medical adviceCall your healthcare provider right away if any of these occur: Pain becomes worse or spreads into one or both arm Increasing headache Fever of 100.4F (38C) or higher, or as directed by your healthcare provider [phone] [employer] [address] [place] [address], [place] [address]. All rights reserved. This information is not [...] Continue the use of 6 General Instructions [facility] Department [address] [place] [address] Phone #: mot- [phone] 07/22/2020 12:15 Patient: [id number] Sex: F : 1980 Age: 40y ice packs for relief of pain and swelling as needed. After 48 hours, apply heat (warm shower or warm bath) for 15 to 20 minutes several times a day, or alternate ice and heat. You may use bkbw-oqn-zpgwzsf pain medicine to control pain, unless another [...] numb, or tingly Pain or swelling increases [phone] [employer] [address] [place] [address]. All rights reserved. This information is not intended as asubstitute for professional medical care. Always follow your healthcare professional's instructions.Bladder Infection, Female (Adult) 7 General Instructions [facility] Emergency Department [address] [place] [address] Phone #: ext- [phone] 07/22/2020 12:15 Patient: [...] orfrom sharing a bath. 8 General Instructi [facility] Emergency Department [address] [place] [address] Phone #: ext- [phone] 07/22/2020 12:15 Patient: MONICA CAO Sex: F [...] help prevent future infections: 9 General Instructions [facility] Emergency Department [address] [place] [address] Phone #: ext- [phone] 07/22/2020 12:15 Patient: [...] if the results will affect your treatment.Call [phone] if any of the following occur: Trouble breathing Hard to wake up or confusion Fainting or loss of consciousness Rapid heart rateWhen to seek medical adviceCall your healthcare provider right away if any of these occur: Fever of 100.4F (38.0C) or higher, or as directed by your healthcare provider 10 General Instructions [facility] Emergency Department [address] [place] [address] Phone #: ext- [phone] 07/22/2020 12:15 Patient: MONICA CAO Sex: F : 1980 Age: 40y Symptoms are not better by the third day of treatment Back or belly (abdominal) pain that gets worse Repeated vomiting, or unable to keep medicine down Weakness or dizziness Vaginal discharge Pain, redness, or swelling in the outer vaginal area (labia) [phone] [employer] [address] [place] [address]. All rights reserved. This information is not intended as asubstitute for professional medical care. Always follow your healthcare professional's instructions. You have been given the following additional information: Neck Sprain or Strain Neck Pain Muscle Strain, Extremity Bladder Infection, Female (Adult)(Electronically signed by Manish Gu, Physician 07/22/2020 23:11) Name Value Range Interpretation Code Description Data Rosa rce(s) Supporting Document(s) ID Date Data Source [id number] 07/22/2020 12:25:00 PM EDT [facility] 1 Clinical Report - Nurses [facility] Emergency Department [address] [place] [address] Phone #: ext- [phone] 07/22/2020 12:15 Patient: [...] rest. 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 Seen [...] or hopeless?". 2 Clinical Report - Nurses [facility] Emergency Department [address] [place] [address] Phone #: ext- [phone] 07/22/2020 12:15 Patient: MONICA CAO [facility]#: [id number] Sex: F : 1980 Age: 40y ABUSE [...] with the 3 Clinical Report - Nurses [facility] Emergency Department [address] [place] [address] Phone #: ext- [phone] 07/22/2020 12:15 Patient: [id number] Sex: F : 1980 Age: 40y patient. Reviewed medication(s) side effects, precautions, dosing and course in formation. Prescription(s) sent electronically to pharmacy. Patient verbalized understanding. Written instructions provided in Mexican. The patient was discharged by the physician. [...] rce(s) Supporting Document(s) ID Date Data Source [id number] 07/22/2020 12:25:00 PM EDT [facility] 1 Clinical Report - Physicians/Mid Levels [facility] Emergency Department [address] [place] [address] Phone #: ext- [phone] 07/22/2020 12:15 Patient: MONICA [facility]O [id number] Sex: F : 1980 Age: 40y Time [...] not had redness. (Pt. was here in [facility] ED with same complaints 13 months ago.). [...] EXAM 2 Clinical Report - Physicians/Mid Levels [facility] Emergency Department [address] [place] [address] Phone #: ext- [phone] 07/22/2020 12:15 Patient: [facility] [id number] Sex: F : 1980 Age: 40y Vital [...] EKG 3 Clinical Report - Physicians/Mid Levels [facility] Emergency Department [address] [place] [address] Phone #: ext- [phone] 07/22/2020 12:15 Patient: MONICA CAO Sex: F : 1980 Age: 40[place] [address] -- -- RESPIRATORY CARE REPORT -- ---------NAME------- NUMBER SEX AGE ADMIT DISC. XRAY# F/C TYPE NASH ANDERSON [id number] F 40 07/22/20 07/22/20 [id number] X6B E/R DATE OF : 1980 M/R# [id number] PH#: [phone] TR-08 LOCATION: EMERGENCY DEPT EKG 09320 COMPLETE:07/22/20 15:00 [place] [id number] PHYSICIAN: RICCARDO Weiss Bilateral: (VANESSA: 07/22/2020 13:00) ( [facility] 07/22/2020 15:26) In ProgressSHOULDER COMP - BILATERALReason(s): Shoulder InjuryTRANSPORTATION: WC IV? O2? Oxygen?(No) Room: EDUrinalysis: (VANESSA: 07/22/2020 13:00) ( [facility] 07/22/2020 13:32) Final results Test Result Flag [...] A (NORMAL: NONETroponin-T: (VANESSA: 07/22/2020 13:06) ( [facility] 07/22/2020 13:55) Final results Test Result Flag [...] (Reference) 4 Clinical Report - Physicians/Mid Levels [facility] Emergency Department [address] [place] [address] Phone #: ext- [phone] 07/22/2020 12:15 - Patient: MONICA CAO Sex: F : 1980 Age: 40y HCG SERUM QUAL NEGATIVE (NORMAL: NEGAT HCG SERUM QL REENTER NEGATIVE (NORMAL: NEGAT { KIT LOT # [id number] ){ KIT EXP DATE06.28.21 ){ PROCEDURAL CONTROL [...] Male GFR Interprentation 20-49 yrs >60 mL/min Onxyse64-02 yrs >56 mL/min Normal 60-69 yrs >49 mL/min Normal 70-79yrs>42 mL/min Normal 80 and above >35 mL/min Normal Female GFRInterpretation 20-39 yrs >60 mL/min Normal 40-49 yrs >58 mL/minNormal 50-59 yrs >51 mL/min Normal 60-69 yrs >45 mL/min Zprhhe43-74 yrs >39 mL/min Normal 80 and above [...] 450) 5 Clinical Report - Physicians/Mid Levels [facility] Emergency Department [address] [place] [address] Phone #: ext- [phone] 07/22/2020 12:15 Patient: MONICA CAO Sex: F [...] strain. 6 Clinical Report - Physicians/Mid Levels [facility] Emergency Department [address] [place] [address] Phone #: ylk- [phone] 07/22/2020 12:15 Patient: MONICA CAO Sex: F [...] Dispense 9 tablet. Refills: 0. Substitution permitted. [facility] [address] [place] [address] [address] ; [place] [address]. FaxNumber: . cyclobenzaprine 10 mg tablet 1 tablet every eight hours as needed for 7 days -- for muscle spasm / pain. Dispense 21 tablet. Refills: 0. Substitution permitted. [facility] [address] [place] [address] [address] ; [place] [address]. . acetaminophen 500 mg tablet Take 2 tablet every six hours as needed for 10 days -- for pain or fever. Dispense 80 tablet. Refills: 0. Substitution permitted. [address] ; [place] [address]. Phone: . Cipro 500 mg tablet Take 1 tablet twice a day for 7 days -- for UTI. Dispense 14 tablet. Refills: 0. Substitution permitted. [address] ; [place] [address]. . Follow-up: Follow up with your doctor in three days if not better. Call for an appointment. Reason for referral: evaluation, treatment and Cervical strain / Shoulder strain / Upper back strain / UTI. Understanding of the discharge instructions verbalized by patient.(Electronically signed by Manish Gu, Physician 07/22/2020 23:11) 7Clinical Report - Phy sicians/Mid Levels [facility] Emergency Department [address] [place] [address] Phone #: ezh- [phone] 07/22/2020 12:15 Patient: MONICA CAO Sex: F : 1980 Age: 40y Name Value Range Interpretation Code Description Data [facility] rce(s) Supporting Document(s) ID Date Data Source [id number] 07/22/2020 12:25:00 PM EDT [facility] Addenda for MONICA CAO VisitID: [id number] Date: 18:31Lab results reviewed, urine culture sensitivity results show Klebsiella oxytoca 10,000-25,000 cfu/mlsensitive to Ciprofloxacin which patient was prescribed.(Electronically signed by Kiki Null RN - 07/26/2020 18:31) Name Value Range Interpretation Code Description [facility] Document(s) ID Date Data Source [id number] 07/25/2020 11:22:00 [place] [address] PHONE: [phone] FAX: [phone] Name .................. : NASH ANDERSON Acct Number.................. : [id number] ROOM. ................. : TR-08 Number ................... : [id number] Stay type ............. : E/R Discharge Date......... ... : 07/22/20 Admit Date ......... : 07/22/20 Admit Phys .................... : RICCARDO DIAMOND Date of ....... : 1980 Family Phys ................... : EDIL Gavin Phone .................. : [phone] Age ................................ : 40 Film# .................. .:[id number] Sex ................................. : F Unsigned transcriptions are preliminary reports and do not represent a medical or legal document CHEST 2 VIEWS [id number] COMPLETE:07/22/20 15:26 ARS 98815 Reason (s): Chest Pain CHEST X-RAY: INDICATION: Chest pain. FINDINGS: The cardiac and mediastinal silhouettes appear normal and the lungs are clear. The bones and soft tissues are normal. The upper abdomen is unremarkable. IMPRESSION: No acute disease identifiable. Electronically Reviewed and Signed By Saeed Vela M.D. , 07/25/20 11:22, [facility] Transcribe Initials: DZ , Transcribe Date: 07/23/20 03:09, Dictation Date: Copy for: EMERGENCY DEPT via mode Copy for: 710 MED REC DISCHARGED Page 1 of 1 Name Value Range Interpretation Code Description Data Rosa rce(s) Supporting Document(s) ID Date Data Source [id number] 07/25/2020 11:22:00 [place] [address] PHONE: [phone] FAX: [phone] Name .................. : NASH ANDERSON Acct Number.................. : [id number] ROOM. ................. : TR-08 MR Number ................... : [id number] Stay type ............. : E/R Discharge Date......... ... : 07/22/20 Admit Date ......... : 07/22/20 Admit Phys .................... : RICCARDO DIAMOND Date of ....... : 1980 Family Phys ................... : SAMIRJUAN Gavin Phone .................. : [phone] Age ................................ : 40 Film# .................. .:[id number] Sex ................................. : F Unsigned transcriptions are preliminary reports and do not represent a medical or legal document SHOULDER COMP - BILATERAL [id number] COMPLETE:07/22/20 15:26 ARS [id number] Reason(s): Shoulder Injury BILATERAL SHOULDER X- RAY: INDICATION: Patient fell one year ago. FINDINGS/IMPRESSION: There is no fracture, dislocation, significant degenerative changes or acute soft tissue abnormality of the bilateral shoulders. Electronically Reviewed and Signed By Saeed Vela M.D. , 07/25/20 11:22, [facility] Transcribe Initials: THUY , Transcribe Date: 07/23/20 03:08, Dictation Date: Copy for: EMERGENCY DEPT via mode Copy for: 710 MED REC DISCHARGED Page 1 of 1 Name Value Range Interpretation Code Description Data Rosa rce(s) Supporting Document(s) ID Date Data Source [id number] 07/25/2020 11:21:00 AM EST [facility] [address] [place] [address] PHONE: [phone] FAX: [phone] Name .................. : NASH ANDERSON Acct Number.................. : [id number] ROOM. ................. : TR-08 MR Number ................... : [id number] Stay type ............. : E/R Discharge Date......... ... : 07/22/20 Admit Date ......... : 07/22/20 Admit Phys .................... : RICCARDO DIAMOND Date of ....... : 1980 Family Phys ................... : EDIL Gavin Phone .................. : [phone] Age ................................ : 40 Film# .................. .:[id number] Sex ................................. : F Unsigned transcriptions are preliminary reports and do not represent a medical or legal document CT CERV SPINE W/O CONTRAS [id number] COMPLETE:07/22/20 18:54 KASHIF [id number] Reason(s): Trauma/Injury CT OF THE CERVICAL SPINE [...] By Saeed Vela M.D. , 07/25/20 11:21, [facility] Transcribe Initials: THUY , Transcribe Date: 07/23/20 03:05, Dictation Date: Copy for: EMERGENCY DEPT via modem Copy for: 710 MED REC DISCHARGED Page 1 of 1 Name Value Range Interpretation Code Description Data Rosa rce(s) Supporting Document(s) ID Date Data Source [id number] 07/25/2020 11:21:00 AM [facility] [address] [place] [address] PHONE: [phone] FAX: [phone] Name .................. : NASH ANDERSON Acct Number.................. : [id number] ROOM. ................. : TR-08 MR Number ................... : [id number] Stay type ............. : E/R Discharge Date......... ... : 07/22/20 Admit Date ......... : 07/22/20 Admit Phys .................... : RICCARDO DIAMOND Date of ....... : 1980 Family Phys ................... : EDIL Gavin Phone .................. : [phone] Age ................................ : 40 Film# .................. .:[id number] Sex ................................. : F Unsigned transcriptions are preliminary reports and do not represent a medical or legal document CT THORACIC SP W/O CONTR [id number] COMPLETE:07/22/20 18:54 KASHIF [id number] Reason(s): Trauma/Injury CT OF THE THORACIC SPINE [...] By Saeed Vela M.D. , 07/25/20 11:21, [facility] Transcribe Initials: DZ , Transcribe Date: 07/23/20 03:03, Dictation Date: Copy for: EMERGENCY DEPT via mode Copy for: 710 MED REC DISCHARGED Page 1 of 1 Name Value Range Interpretation Code Description Data Rosa rce(s) Supporting Document(s) ID Date Data Source [id number] 07/22/2020 07:34:00 PM EDT [facility] [address] [place] [address] RESPIRATORY CARE REPORT ==== ---------NAME------- NUMBER SEX AGE ADMIT DISC. XRAY# F/C JODIE ANDERSON [id number] F 40 07/22/20 07/22/20 [id number] X6B E/R DATE OF : 1980 M/R# [id number] #: [id number] TR-08 LOCATION: EMERGENCY DEPT [facility] [id number] COMP LETE:07/22/20 15:00 [place] [id number] PHYSICIAN: RICCARDO DIAMOND Name Value Range Interpretation Code Description Data Rosa rce(s) Supporting Document(s) ID Date Data Source [id number] 07/22/2020 02:05:00 PM EDT [facility] Name Value Range Interpretation Code Description Data Rosa rce(s) Supporting Document(s) COMPREHENSIVE METABOLIC PANEL [facility] COMPREHENSIVE METABOLIC PANEL Sodium [Moles/volume] in Serum or Plasma 135 mEq/L 134 - 153 [facility] Potassium [Moles/volume] in Serum or Plasma 4.1 mEq/L 3.6 - 5.0 [facility] Chloride [Moles/volume] in Serum or Plasma 101 mEq/L 98 - 107 [facility] Carbon dioxide, total [Moles/volume] in Serum or Plasma 26 MEQ/L 22 - 30 [facility] Glucose [Mass/volume] in Serum or Plasma 88 MG/DL 65 - 110 [facility] BUN 12 MG/DL 7 - [facility] Creatinine [Mass/volume] in Serum or Plasma 0.6 MG/DL 0.7 - 1.5 L [facility] BUN/CREAT 20 8 - 27 [facility] Protein [Mass/volume] in Serum or Plasma 7.2 G/DL 6.3 - 8.2 [facility] Albumin [Mass/volume] in Serum or Plasma 4.7 G/DL 3.9 - 5.0 [facility] Globulin [Mass/volume] in Serum by calculation 2.5 GM/DL 2.4 - 3.2 [facility] A/G RATIO 1.9 0.8 - 2.0 [facility] Calcium [Mass/volume] in Serum or Plasma 11.1 MG/DL 8.4 - 10.2 H [facility] Bilirubin.total [Mass/volume] in Serum or Plasma <0.7 MG/DL 0.2 - 1.3 [facility] Alkaline phosphatase [Enzymatic activity/volume] in Serum or Plasma 65 U/L 38 - 126 [facility] Aspartate aminotransferase [Enzymatic activity/volume] in Serum or Plasma 19 U/L 5 - 40 [facility] Alanine aminotransferase [Enzymatic activity/volume] in Seru m or Plasma 20 U/L 7 - 56 [facility] Anion gap 3 in Serum or Plasma 8.0 mmol/L 8.0 - 16.0 [facility] AGE 40 yrs [facility] NON-AA GFR >60 mL/min [facility] AFR AMER GFR >60 mL/min [facility] Male GFR In terprentation [...] >32 mL/min Normal ID Date Data Source [id number] 07/22/2020 02:05:00 PM [facility] Name Value Range Interpretation Code Description Data Rosa rce(s) Supporting Document(s) Thyrotropin [Units/volume] in Serum or Plasma by Detec tion limit <= 0.05 mIU/L 2.05 uIU/mL 0.47 - 5.01 [facility] ID Date Data Source [id number] 07/22/2020 01:55:00 PM [facility] Name Value Range Interpretation Code Description Data Rosa rce(s) Supporting Document(s) TROPONIN T <0.01 NG/ML 0.00 - 0.10 [facility]ital TROPONIN T0.1 ng/ml Recommended as the c linical threshold value forTroponin T. ID Date Data Source [id number] 07/22/2020 01:50:00 PM EDT [facility] Name Value Range Interpretation Code Description Data Rosa rce(s) Supporting Document(s) HCG SERUM QUAL NEGATIVE NORMAL: NEGATIVE [facility] HCG SERUM QL REENTER NEGATIVE NORMAL: NEGATIVE [facility] { KIT LOT # [id number] ){ KIT EXP DATE 06.28.21 ){ PROCEDURAL CONTROL VALID ) ID Date Data Source [id number] 07/22/2020 01:49:00 PM EDT [facility] Name Value Range Interpretation Code Description Data Rosa rce(s) Supporting Document(s) Fibrin D-dimer FEU [Mass/volume] in Platelet poor plasma 0.27 ug /mL 0.27 - 0.50 [facility] ID Date Data Source [id number] 07/22/2020 01:20:00 PM EDT [facility] Name Value Range Interpretation Code Description Data [facility] rce(s) Supporting Document(s) CBC W/AUTOMATED DIFF [facility] COMPLETE BLOOD COUNT Leukocytes [#/volume] in Blood by Automated count 6.7 10^3/uL 4.2 - 1 1.0 [facility] Erythrocytes [#/volume] in Blood by Automated count 4.28 10^6/uL 4. 20 - 5.40 [facility] Hemoglobin [Mass/volume] in Blood 12.9 g/dL 12.0 - 16.0 [facility] Hematocrit [Volume Fraction] of Blood by Automated count 38.8 % 3 7.0 - 47.0 [facility] Erythrocyte mean corpuscular volume [Entitic volume] by Auto mated count 90.7 fL 81.0 - 101 [facility] Erythrocyte mean corpuscular hemoglobin [Entitic mass] by Automated count 30.1 pg 27.0 - 34.0 [facility] Erythrocyte mean corpuscular hemoglobin concentration [Mass/volume] by Automated count 33.2 g/dL 31.0 - 36.0 [facility] Erythrocyte distribution width [Ratio] by Automated count 12.6 % 11.5 - 14.5 [facility] Platelets [#/volume] in Blood by Automated count 313 10^3/uL 150 - 45 0 [facility] Platelet mean volume [Entitic volume] in Blood by Automated count 8.4 fL 7.4 - 10.4 [facility] Neutrophils/100 leukocytes in Blood by Automated count 56.6 % 37. 0 - 80.0 [facility] Lymphocytes/100 leukocytes in Blood by Manual count 34.0 % 25.0 - 40.0 [facility] Monocytes/100 leukocytes in Blood by Automated count 6.5 % 3.0 - 8.0 [facility] Eosinophils/100 leukocytes in Blood by Automated count 2.1 % 0.0 - 7.0 [facility] Basophils/100 leukocytes in Blood by Automated count 0.4 % 0.0 - 2.5 [facility] %IG 0.4 % 0.0 - 0.0 H [facility] %NRBC 0.0 % 0.0 - 0.0 [facility] al Neutrophils [#/volume] in Blood by Automated count 3.80 10^3/uL 2.00 - 6.90 [facility] Lymphocytes [#/volume] in Blood by Automated count 2.29 10^3/uL 0.60 - 3.40 [facility] Monocytes [#/volume] in Blood by Automated count 0.44 10^3/uL 0.00 - 0.90 [facility] Eosinophils [#/volume] in Blood by Automated count 0.14 10^3/uL 0.00 - 0.70 [facility] Basophils [#/volume] in Blood by Automated count 0.03 10^3/uL 0.00 - 0.20 [facility] #IG 0.03 10^3/uL 0.00 - 0.10 [facility] #NRBC 0.00 10^3/uL 0.00 - 0.00 [facility] MANUAL DIFF NOT INDICATED [facility] RBC MORPH NOT INDICATED [facility] ID Date Data Source [id number] 07/26/2020 04:24:00 PM EST [facility] Name Value Range Interpretation Code Description Data Rosa rce(s) Supporting Document(s) CULTURE URINE [facility] _CULTURE URINE_$$[id number]$$[id number]$$[id number]$$[id number]$$933339$$158865$$626628$$235741$$077997$$ 582475$$127152$$729729$$448158$$811370$$911095$$435224$$104673$$964018$$497252$$ 127331$$355732$$078785$$946917$$123097$$974158$$629792$$927722 -- Continued on next page --Patient: NASH ANDERSON Order: [id number] Page 2Culture: CULTURE URINE Status: Final ==== -- Continued on next page --Patient: NASH ANDERSON Order: [id number] Page 2Culture: CULTURE URINE Status: Prelim =====$$[id number]$$[id number] DATE/TIME: 07/26/2020 16:07Culture: CULTURE URINE Status: FinalIsolate 1 Klebsiella oxytoca Flag: A . . . . . . .410,000-25,000 colony forming units per mL Previous result entered on 07/25/2020 05:53 ET Gram negative rodsUrine Culture,Comprehensive: [id number] oxytoca Flag: APatient: NASH ANDERSON Order: [id number] Page 3Culture: CULTURE URINE Status: Final ====ISOLATE [...] S S . . . . . .48297-8Vqqueusbfe S S . . . . . .267-5Imipenem S S . . . . . .279-0Levofloxacin S S . . . . . .54322-6Feduadrru S S . . . . . .6652- 2Nitrofurantoin I I . . . . . .363-2Tetracycline S S . . . . . .496-0Tobramycin S S . . . . . .508-2Trimethoprim/Sulfa S S . . . . . .516-5P1 Test performed by: [facility] #: [id number] [address] [place] [address] [id number] [facility] [id number] Director : Fredrick Laurent MD NPI #:Assistant Case Manager : 07/25/[email or web address].SENT REF 07/26/20.1624.XMT.SENT REF ID Date Data Source [id number] 07/22/2020 01:31:00 PM EDT [facility] Name Value Range Interpretation Code Description Data Rosa rce(s) Supporting Document(s) [facility]YSIS [facility] URINALYSIS SOURCE R [facility] COLOR yellow NORMAL: Yellow [facility] CLARITY hazy NORMAL: Clear [facility] Specific gravity of Urine by Test strip 1.025 1.001 - 1.030 [facility] pH 5 5 - 9 [facility] Glucose [Mass/volume] in Urine by Test strip NORM NORMAL: Negat [facility] Bilirubin.total [Presence] in Urine by Test strip NEG NORMAL: Negative [facility] Ketones [Presence] in Urine by Test strip NEG NORMAL: Negative [facility] Protein [Mass/volume] in Urine by Test strip NEG NORMAL: Negat [facility] Nitrite [Presence] in Urine by Test strip NEG NORMAL: Negative [facility] BLOOD 250 NORMAL: Negative [facility] Leukocyte esterase [Presence] in Urine by Test strip 500 KAREL L: Negative [facility] Urobilinogen [Mass/volume] in Urine by Test strip NOR less aguila n 1.0 mg/dL [facility] MICROSCOPIC See Below [facility] ital WBC 15 - 20 NORMAL: NONE SEEN A [facility] Erythrocytes [#/volume] in Urine by Test strip 7 - 10 NORMAL: NON E SEEN A [facility] EPITHELIAL MANY NORMAL: NONE SEEN A [facility] Bacteria [Presence] in Urine sediment by Light microscopy 2+ MOD NORMAL: NONE SEEN A [facility] Procedure Social History Code Duration Value Status Description Data Source(s ) Smoking 09/01/2020 12:00:00 AM EST Former Smoker completed Former Smoker eCW1 ([facility]) Smoking 08/01/2020 12:00:00 AM EST Former Smoker completed Former Smoker eCW1 ([facility]) Vital Signs ID Date Data Source UNK Name Value Range Interpretation Code Description Data Source(s) Diastolic blood pressure 94 mm[Hg] 94 mm[Hg] eCW1 ([facility]) Systolic blood pressure 153 mm[Hg] 153 mm[Hg] e CW1 ([facility]) Body temperature 98.2 [degF] 98.2 [degF] eCW1 ( [facility]) Respiratory rate 16 /min 16 /min eCW1 ([facility]) Heart rate 103 /min 103 /min eCW1 ([facility]) Body mass index (BMI) [Ratio] 34.54 kg/m2 34.54 kg/m2 eCW1 ([facility]) Body height [in_i] eCW1 ([facility]) Body weight 204.4 [lb_av] 204.4 [lb_av] eCW1 ([facility]) Diastolic blood pressure 84 mm[Hg] 84 mm[Hg] eCW1 ([facility]) Systolic blood pressure 130 mm[Hg] 130 mm[Hg] e CW1 ([facility]) Body mass index (BMI) [Ratio] 36.33 kg/m2 36.33 kg/m2 eCW1 ([facility]) Body height [in_i] eCW1 ([facility]) Body weight 215 [lb_av] 215 [lb_av] eCW1 ([facility]) Patient Treatment Plan of Care Planned Activity Planned Date Details Description Data Source (s) Loestrin 1.5/30 (21) 1.5-30 MG-MCG 12/28/2019 12:00:00 AM EDT eCW1 ([facility]) Loestrin 1.5/30 (21) 1.5-30 MG-MCG 12/28/2019 12:00:00 AM EDT eCW1 ([facility]) Loestrin 1.5/30 (21) 1.5-30 MG-MCG 12/28/2019 12:00:00 AM EDT eCW1 ([facility]) Loestrin 1.5/30 (21) 1.5-30 MG-MCG 12/28/2019 12:00:00 AM EDT eCW1 ([facility])
[2020-11-07 20:38] LABS: BASO % 0.3 % (0.0-1.0); EOS # 0.1 10^3/uL (0.0-0.5); EOS % 1.8 % (0.0-3.0); HEMATOCRIT 36.8 % (36.0-47.0); HEMOGLOBIN 11.6 g/dl (12.0-15.5); LYMPH # 1.9 10^3/uL (1.5-5.0); LYMPH % 26.9 % (24.0-44.0); MEAN CORPUSCULAR HEMOGLOBIN 28.8 pg (27.0-33.0); MEAN CORPUSCULAR HGB CONC 31.5 g/dl (32.0-36.5); MEAN CORPUSCULAR VOLUME 91.3 fl (80.0-96.0); MONO # 0.5 10^3/uL (0.0-0.8); MONO % 6.5 % (0.0-8.0); NEUTROPHILS # 4.6 10^3/uL (1.5-8.5); NEUTROPHILS % 64.2 % (36.0-66.0); PLATELET COUNT, AUTOMATED 345 10^3/uL (150-450); RED BLOOD COUNT 4.03 10^6/uL (4.00-5.40); WHITE BLOOD COUNT 7.1 10^3/uL (4.0-10.0)
[2020-11-07 20:45] LABS: HCG, SERUM QUALITATIVE NEGATIVE (NEGATIVE)
[2020-11-07 20:49] LABS: BLOOD UREA NITROGEN 9 MG/DL (7-18); CALCIUM LEVEL 9.7 MG/DL (8.5-10.1); CARBON DIOXIDE LEVEL 24 MEQ/L (21-32); CHLORIDE LEVEL 109 MEQ/L (98-107); CK-MB VALUE MASS < 1.0 NG/ML (<3.6); CPK CREATINE PHOSPHOKINASE 64 U/L (26-192); CREATININE FOR GFR 0.73 MG/DL (0.55-1.30); GLOMERULAR FILTRATION RATE > 60.0 (>60); GLUCOSE, FASTING 90 MG/DL (70-100); MB/CK RELATIVE INDEX 1.56 (< OR =4); POTASSIUM SERUM 4.3 MEQ/L (3.5-5.1); SODIUM LEVEL 141 MEQ/L (136-145); TROPONIN I < 0.02 NG/ML (< 0.10)
[2020-11-07] MEDS ORDERED: KETOROLAC 30 MG/ML 1ML VIAL IV ONE (21:00)
--- NOTE | 2020-11-07 21:07 | REPVR ---
PROCEDURE INFORMATION: Exam: XR Chest, 1 View Exam date and time: 11/07/2020 8:57 PM Age: 40 years old Clinical indication: Chest pain; Type not specified TECHNIQUE: Imaging protocol: XR of the chest Views: 1 view. COMPARISON: CR Chest, 2 view PA, Lat 09/30/2019 11:04 PM FINDINGS: Lungs: Unremarkable. No consolidation. Pleural spaces: Unremarkable. No pleural effusion. No pneumothorax. Heart/Mediastinum: Unremarkable. No cardiomegaly. Bones/joints: Unremarkable. IMPRESSION: No acute findings. Electronically signed by: Song Moore On 11/07/2020 21:08:04 PM
[2020-11-07 22:00] VITALS: BP 147/96
--- NOTE | 2020-11-08 07:49 | ECGEPIP ---
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
== END 2020-11-07 22:38 | disposition home or self-care (01) ==
LOC: M ED 17:09
DX: F41.1 Generalized anxiety disorder (principal); F43.10 Post-traumatic stress disorder, unspecified; Z79.3 Long term (current) use of hormonal contraceptives; Z88.0 Allergy status to penicillin; Z88.8 Allergy status to other drugs, medicaments and biological substances
CPT/HCPCS: 36415; 71045; 80048; 82550; 82553; 84703; 85025; 93005; 93041; 94760; 96374; 96375; 99285; J1885; J2060

== ENCOUNTER → 2021-01-25 | Outpatient (REF) | payer OTHER ==
[~2021-01-25] MED LIST changes: +LARI1TAB7 PO; +PHEN37.52 PO
[2021-01-25 18:07] LABS: HEMOGLOBIN 10.7 g/dl (12.0-15.5); MEAN CORPUSCULAR HEMOGLOBIN 29.2 pg (27.0-33.0); MEAN CORPUSCULAR HGB CONC 30.6 g/dl (32.0-36.5); MEAN CORPUSCULAR VOLUME 95.4 fl (80.0-96.0); PLATELET COUNT, AUTOMATED 403 10^3/uL (150-450); RED BLOOD COUNT 3.67 10^6/uL (4.00-5.40); WHITE BLOOD COUNT 10.1 10^3/uL (4.0-10.0)
[2021-01-25 18:46] LABS: FREE T4 0.88 NG/DL (0.76-1.46); THYROID STIMULATING HORMONE 1.86 uIU/ML (0.358-3.740)
== END ==
LOC: M PLALAB 15:18
PROVIDERS: ATTEND Obstetrics & Gynecology
DX: N93.9 Abnormal uterine and vaginal bleeding, unspecified (principal)

== ENCOUNTER → 2021-02-09 | Outpatient (CLI) | payer OTHER ==
--- NOTE | 2021-02-09 08:29 | REP ---
INDICATION: N93.9 AUB COMPARISON: 01/27/2019 TECHNIQUE: Transabdominal pelvic ultrasound followed by transvaginal examination for better evaluation of the endometrium and adnexa with color Doppler evaluation of the ovaries. FINDINGS: Bladder is grossly normal but under distended and measures 4.2 x 3.0 x 3.5 cm. Heterogeneous anteverted uterus measures 10.3 x 5.5 x 6.4 cm and includes multiple fibroids measuring up to 1.2 cm diameter. The endometrial complex measures 4.6 mm thickness. Bilateral ovaries are normal in appearance. Right ovary measures 2.1 x 1.8 x 1.5 cm; left ovary measures 2.4 x 1.3 x 2.1 cm. No pelvic fluid or adnexal mass lesion. IMPRESSION: Enlarged Myomatous uterus with multiple small fibroids measuring up to 1.2 cm maximal diameter. <Electronically signed by Terrence Jones > 02/09/21 0891
== END ==
LOC: M WHC 06:54
PROVIDERS: ATTEND Obstetrics & Gynecology
DX: N93.9 Abnormal uterine and vaginal bleeding, unspecified (principal)

== ENCOUNTER → 2021-02-09 | Outpatient (CLI) | payer OTHER ==
--- NOTE | 2021-02-10 16:51 | ECGEPIP ---
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
== END ==
LOC: M EKG 08:13
PROVIDERS: ATTEND Anesthesiology
DX: Z01.818 Encounter for other preprocedural examination (principal)

== ENCOUNTER → 2021-02-17 | Outpatient (CLI) | payer OTHER | LOC: M LABSMTC 10:58 | PROVIDERS: ATTEND Anesthesiology | DX: Z01.818 Encounter for other preprocedural examination (principal); Z11.52 Encounter for screening for COVID-19 ==

== ENCOUNTER 2021-02-22 10:07 | Day surgery (SDC) | payer OTHER ==
[~2021-02-22] VITALS: Ht 162.6 cm; Wt 86.2 kg
[~2021-02-22 10:07] MED LIST changes: +BUPIVACAINE HCL 0.25% 30ML VIAL As Ordered ONE; +CIPROFLOXACIN 400 MG in IV 1 EA IV ONE; +CLINDAMYCIN 900 MG in IV 1 EA IV ONE; +LIDOCAINE 1% MDV 20ML VIAL SQ PRN; +LR 1,000 ML IV ONE
[2021-02-22] MEDS ORDERED: MIDAZOLAM INJ 2MG/2ML VIAL (J2250 PER 1MG) As Ordered ONE (10:39)
[2021-02-22] MEDS ORDERED: fentaNYL 100 MCG/2 ML INJECTION (J3010) As Ordered ONE (10:41)
[2021-02-22 10:59] LABS: HEMATOCRIT 34.1 % (36.0-47.0); HEMOGLOBIN 10.7 g/dl (12.0-15.5); MEAN CORPUSCULAR HEMOGLOBIN 27.9 pg (27.0-33.0); MEAN CORPUSCULAR HGB CONC 31.4 g/dl (32.0-36.5); PLATELET COUNT, AUTOMATED 445 10^3/uL (150-450); RED BLOOD COUNT 3.83 10^6/uL (4.00-5.40); WHITE BLOOD COUNT 10.3 10^3/uL (4.0-10.0)
--- NOTE | 2021-02-22 11:50 | ROOPDOC ---
[facility] Report Of Operation Report of Operation DATE OF PROCEDURE: 02/22/21 PREPROCEDURE DIAGNOSES: 1. Abnormal uterine bleeding. POSTPROCEDURE DIAGNOSES: 1. Abnormal uterine bleeding. PROCEDURES PERFORMED: 1. Robotic-assisted laparoscopic hysterectomy. 2. Bilateral salpingectomy. 3. Cystoscopy. SURGEON: Rihcy Elam MD PROCESS ENVIRONMENTAL TECHNICIAN: CARLI Moscoso ANESTHESIA: General endotracheal anesthesia. ESTIMATED BLOOD LOSS: 50 mL. INTRAVENOUS FLUIDS: 800mL lactated Ringer solution. URINE OUTPUT: 50mL. PREPROCEDURE ANTIBIOTICS: 900 mg of clindamycin and 400 mg of ciprofloxacin OPERATIVE FINDINGS: The patient with normal-appearing bilateral adnexa and uterus CYSTOSCOPIC FINDING: Normal bladder mucosa, no foreign objects. Bilateral ureteral jets were observed. SPECIMEN: Uterus, cervix, bilateral fallopian tubes DESCRIPTION OF PROCEDURE: After informed consent was obtained and written consent was reviewed, the patient was brought to the operating room, where general endotracheal anesthesia was obtained. She was then placed in lithotomy position, was prepped and draped in a normal sterile fashion. A time-out in the operating room was then performed, identifying the patient, procedure to be performed, as well as drug allergies. A speculum was then placed, revealing the cervix. The anterior and posterior aspects of the cervix were stitched with a 0 Vicryl. The uterus was then sounded to 11cm. A large MOVLare uterine manipulator was then advanced through the cervical os for means to manipulate the uterus. The cervical cap was applied over the cervix, as well as the vaginal sleeve applied into the vagina. The speculum was removed from the patients vagina. A Bolton catheter was then placed and set to gravity. Gloves were changed, and attention was turned to the patients abdomen, where a Veress needle was placed through the umbilicus. A pneumoperitoneum was then obtained with CO2 gas. The supraumbilical area was infused with 0.25% Marcaine. An incision was made in this area, and a 8 mm trocar and sleeve was advanced through this incision. The laparoscope was then replaced, revealing intra-abdominal placement. Three additional port sites were placed, two to the left side of the patient's abdomen and one to the right. These areas was infused with 0.25% Marcaine. Each one of these areas, incisions were made, and 8 mm trocars and sleeves advanced through each one of these incisions under direct visualization. Next, the da Bridget was then docked, utilizing a camera arm and two operative arms. The patient's abdomen was then surveyed with the above-noted finding. Bilateral salpingectomies were then performed. The fallopian tubes' mesosalpinx was cauterized and ligated with hemostasis noted. Next, the uteroovarian ligaments bilateral were cauterized and ligated with good hemostasis noted. The round ligaments bilaterally were cauterized and ligated with good hemostasis noted. The anterior and posterior aspects of broad ligaments were . The anterior leaf of the broad ligament was cauterized and ligated and dissected along the bladder, creating a bladder flap. The remainder of the broad and cardinal ligaments were then cauterized and ligated with good hemostasis noted. The uterine arteries were skeletonized bilaterally and were cauterized and transected with good hemostasis noted. Anterior and posterior colpotomies were made using monopolar scissors. The uterus was then brought out through the vaginal incision. The surgical sites were inspected and noted to be hemostatic. The vaginal cuff was then closed using 2-0 V-Loc system in a running fashion. Dany was then applied over the surgical field. The pneumoperitoneum was then released. Next, the cystoscopy was then performed. Utilizing a 70-degree cystoscope, it was advanced transurethrally through the bladder. The bladder was surveyed, showing normal bladder mucosa, no foreign bodies. The bilateral ureteral jets were observed. The cystoscope was then removed. The bladder was then drained. Gloves were changed. Attention was then turned to the patients abdomen, where all four port sites were closed with 4-0 Monocryl and dressed with Dermabond. The patient was then taken out of lithotomy position and was awakened from general anesthesia and taken to recovery in stable condition. Counts were correct. Amber Reid, my assistant real estate manager, played a central role in the operation. She assisted with port placement, tissue retraction and identification, as well as wound closure. RICHY ELAM MD. Feb 22, 2021 11:50
[2021-02-22] MEDS ORDERED: BUPIVACAINE HCL 0.25% 30ML VIAL As Ordered ONE (11:51)
[2021-02-22] MEDS ORDERED: LABETALOL 100MG/20ML VIAL As Ordered ONE (12:32)
[2021-02-22] MEDS ORDERED: ALBUTEROL 6.7GM INHALER **FOR ANES. CART/OMNICELL ONLY As Ordered ONE (12:45)
[2021-02-22] MEDS ORDERED: ACETAMINOPHEN 1000MG 100ML IV BTL (OFIRMEV) (J0131 PER 10MG) As Ordered ONE (12:45)
[2021-02-22] MEDS ORDERED: ROCURONIUM BROMIDE 50 MG/5 ML VIAL As Ordered ONE (12:49)
[2021-02-22] MEDS ORDERED: HYDROmorphone HCL 2 MG/ML 1ML VIAL (J1170) As Ordered ONE (12:50)
[2021-02-22] MEDS ORDERED: METHYLENE BLUE 0.5% (5MG/ML) 10 ML AMP (PROVAYBLUE) As Ordered ONE (13:18)
[2021-02-22] MEDS ORDERED: propofoL 200 MG/20 ML VIAL As Ordered ONE (13:32)
[2021-02-22] MEDS ORDERED: METOCLOPRAMIDE INJ 10MG/2ML VIAL (J2765 PER 1) As Ordered ONE (13:32)
[2021-02-22] MEDS ORDERED: ONDANSETRON 4MG/2ML VIAL As Ordered ONE (13:32)
[2021-02-22] MEDS ORDERED: dexameTHASONE 4 MG/ML 1ML VIAL (J1100 PER 1MG) As Ordered ONE (13:33)
[2021-02-22] MEDS ORDERED: SUGAMMADEX SODIUM 500 MG/5 ML VIAL (BRIDION) As Ordered ONE (13:34)
[2021-02-22] MEDS ORDERED: ONDANSETRON 4MG/2ML VIAL IV PRN (14:25)
[2021-02-22] MEDS ORDERED: oxyCODONE 5MG TAB PO PRN (14:25)
[2021-02-22] MEDS ORDERED: fentaNYL 100 MCG/2 ML INJECTION (J3010) IV PRN (14:25)
[2021-02-22] MEDS ORDERED: PERCOCET 5MG/325MG TAB PO PRN (14:30)
[2021-02-22] MEDS ORDERED: LR 1,000 ML IV SCH (14:35)
[2021-02-22] MEDS ORDERED: KETOROLAC 30 MG/ML 1ML VIAL IV SCH (15:00)
[2021-02-22 16:15] VITALS: BP 122/73
== END 2021-02-22 15:24 | disposition home or self-care (01) ==
LOC: M SDC 10:07
PROVIDERS: ATTEND Obstetrics & Gynecology
DX: D25.9 Leiomyoma of uterus, unspecified (principal); N88.8 Other specified noninflammatory disorders of cervix uteri; G43.909 Migraine, unspecified, not intractable, without status migrainosus; F41.9 Anxiety disorder, unspecified; D64.9 Anemia, unspecified; I34.1 Nonrheumatic mitral (valve) prolapse; M54.2 Cervicalgia; F32.9 Major depressive disorder, single episode, unspecified; F43.10 Post-traumatic stress disorder, unspecified; Z87.891 Personal history of nicotine dependence; Z88.0 Allergy status to penicillin; Z88.6 Allergy status to analgesic agent; Z79.899 Other long term (current) drug therapy; Z79.3 Long term (current) use of hormonal contraceptives
CPT/HCPCS: 36415; 58571; 81025; 85027; 86850; 86900; 86901; 88307; J0131; J0744; J1100; J1170; J1885; J2250; J2405; J2765; J3010; Q9968; S2900

== ENCOUNTER → 2021-10-20 | Outpatient (CLI) | payer OTHER ==
[~2021-10-20] MED LIST changes: -BUPIVACAINE HCL 0.25% 30ML VIAL As Ordered ONE; -CIPROFLOXACIN 400 MG in IV 1 EA IV ONE; -CLINDAMYCIN 900 MG in IV 1 EA IV ONE; -LIDOCAINE 1% MDV 20ML VIAL SQ PRN; -LR 1,000 ML IV ONE; -PHEN37.52 PO; +PHEN37.58 PO
== END ==
LOC: M CLY 11:14
PROVIDERS: ATTEND Family Medicine
DX: R05.9 Cough, unspecified (principal)

== ENCOUNTER → 2022-01-02 | Outpatient (CLI) | payer OTHER ==
[~2022-01-02] MED LIST changes: -LATU40TA PO; +LATU40TA2 PO
== END ==
LOC: M CLY 14:26
PROVIDERS: ATTEND Family Medicine
DX: M25.561 Pain in right knee (principal)

== ENCOUNTER → 2022-01-02 | Outpatient (REF) | payer OTHER ==
[2022-01-03 11:21] LABS: ALBUMIN 3.9 GM/DL (3.2-5.2); ALT/SGPT 27 U/L (12-78); BILIRUBIN,TOTAL 0.3 MG/DL (0.2-1.0); BLOOD UREA NITROGEN 14 MG/DL (7-18); CALCIUM LEVEL 10.1 MG/DL (8.5-10.1); CARBON DIOXIDE LEVEL 27 MEQ/L (21-32); CHLORIDE LEVEL 110 MEQ/L (98-107); CREATININE FOR GFR 0.68 MG/DL (0.55-1.30); GLOMERULAR FILTRATION RATE > 60.0 (>58); GLUCOSE, FASTING 107 MG/DL (70-100); POTASSIUM SERUM 4.2 MEQ/L (3.5-5.1); RHEUMATOID FACTOR QUANT < 10.0 IU/ML (<15.0); SODIUM LEVEL 140 MEQ/L (136-145); TOTAL PROTEIN 6.9 GM/DL (6.4-8.2)
[2022-01-03 11:29] LABS: BASO % 0.4 % (0.0-1.0); EOS # 0.2 10^3/uL (0.0-0.5); EOS % 2.7 % (0.0-3.0); HEMATOCRIT 34.8 % (36.0-47.0); HEMOGLOBIN 11.3 g/dl (12.0-15.5); LYMPH % 27.5 % (24.0-44.0); MEAN CORPUSCULAR HEMOGLOBIN 29.2 pg (27.0-33.0); MEAN CORPUSCULAR HGB CONC 32.5 g/dl (32.0-36.5); MEAN CORPUSCULAR VOLUME 89.9 fl (80.0-96.0); MONO # 0.5 10^3/uL (0.0-0.8); MONO % 7.1 % (2.0-8.0); NEUTROPHILS # 4.5 10^3/uL (1.5-8.5); PLATELET COUNT, AUTOMATED 356 10^3/uL (150-450); RED BLOOD COUNT 3.87 10^6/uL (4.00-5.40); WHITE BLOOD COUNT 7.3 10^3/uL (4.0-10.0)
[2022-01-03 11:51] LABS: ERYTHROCYTE SEDIMENTATION RATE 16 mm/hr (0-20)
[2022-01-05 00:10] LABS: ANA (HEP2) Positive (.); CYCLIC CITRULLINATED PEPTIDE 5 units (0-19); H PYLORI SERUM QUANT IGA <9.0 units (0.0-8.9); H PYLORI SERUM QUANT IGM <9.0 units (0.0-8.9); H PYLORI SERUM QUANT IgG ABY 0.23 (0.00-0.79)
== END ==
LOC: M SFHCCLAY 15:24
PROVIDERS: ATTEND Family Medicine
DX: M50.321 Other cervical disc degeneration at C4-C5 level (principal); M25.561 Pain in right knee; M25.562 Pain in left knee; K21.9 Gastro-esophageal reflux disease without esophagitis

== ENCOUNTER → 2022-04-01 | Outpatient (REF) | payer OTHER ==
[~2022-04-01] MED LIST changes: -MICR1TAB18 PO; +NORE1TAB94 PO
== END ==
LOC: M LAB REF 17:35
PROVIDERS: ATTEND Physician Assistant Medical
DX: N39.0 Urinary tract infection, site not specified (principal)

== ENCOUNTER → 2022-04-24 | Outpatient (REF) | payer OTHER | LOC: M SFHCCLAY 17:02 | PROVIDERS: ATTEND Family Medicine | DX: R35.0 Frequency of micturition (principal) ==

== ENCOUNTER → 2022-06-12 | Outpatient (CLI) | payer OTHER ==
[2022-06-12 18:40] LABS: C REACTIVE PROTEIN QUANTITATIV < 0.30 MG/DL (0.00-0.30); IRON (FE) 60 UG/DL (50-170); MAGNESIUM LEVEL 2.6 MG/DL (1.8-2.4); PHOSPHORUS LEVEL 3.1 MG/DL (2.5-4.9)
[2022-06-12 19:22] LABS: TOTAL 25(OH) VITAMIN D 15.3 NG/ML (30.0-100.0); VITAMIN B12 LEVEL 283 PG/ML (247-911)
== END ==
LOC: M RAD 16:51
PROVIDERS: ATTEND Internal Medicine
DX: M79.10 Myalgia, unspecified site (principal); M54.9 Dorsalgia, unspecified

== ENCOUNTER → 2022-07-19 | Outpatient (REF) | payer OTHER | LOC: M LAB REF 12:08 | PROVIDERS: ATTEND Physician Assistant | DX: B34.9 Viral infection, unspecified (principal) ==

== ENCOUNTER 2022-10-14 16:20 | Emergency (ER) | payer OTHER ==
[~2022-10-14] VITALS: Ht 162.6 cm; Wt 97.7 kg
[~2022-10-14 16:20] MED LIST changes: -DOXY-350 PO; +DOXY-444 PO
[2022-10-14] MEDS ORDERED: OMEP-173 (16:52)
[2022-10-14 21:31] LABS: BASO % 0.4 % (0.0-1.0); EOS # 0.1 10^3/uL (0.0-0.5); EOS % 1.3 % (0.0-3.0); HEMATOCRIT 34.9 % (36.0-47.0); HEMOGLOBIN 11.4 g/dl (12.0-15.5); LYMPH # 2.3 10^3/uL (1.5-5.0); LYMPH % 28.1 % (24.0-44.0); MEAN CORPUSCULAR HGB CONC 32.7 g/dl (32.0-36.5); MEAN CORPUSCULAR VOLUME 88.8 fl (80.0-96.0); MONO # 0.6 10^3/uL (0.0-0.8); MONO % 6.8 % (2.0-8.0); NEUTROPHILS # 5.3 10^3/uL (1.5-8.5); NEUTROPHILS % 63.3 % (36.0-66.0); PLATELET COUNT, AUTOMATED 339 10^3/uL (150-450); RED BLOOD COUNT 3.93 10^6/uL (4.00-5.40); WHITE BLOOD COUNT 8.3 10^3/uL (4.0-10.0)
[2022-10-14 21:59] LABS: CK-MB VALUE MASS < 1.0 NG/ML (<3.6); LIPASE 29 U/L (12-53)
[2022-10-14 22:01] LABS: ALBUMIN 4.2 G/DL (3.2-5.2); ALKALINE PHOSPHATASE 103 U/L (46-116); ALT/SGPT 20 U/L (7.0-40); AST/SGOT 17 U/L (<34); BILIRUBIN,DIRECT < 0.1 MG/DL (<0.4); BILIRUBIN,TOTAL 0.4 MG/DL (0.3-1.2); BLOOD UREA NITROGEN 13 MG/DL (9-23); CALCIUM LEVEL 10.7 MG/DL (8.5-10.1); CARBON DIOXIDE LEVEL 23 MMOL/L (20-31); CHLORIDE LEVEL 107 MMOL/L (98-107); CREATININE FOR GFR 0.75 MG/DL (0.55-1.30); GLOMERULAR FILTRATION RATE > 60.0 (>58); GLUCOSE, FASTING 98 MG/DL (60-100); POTASSIUM SERUM 4.3 MMOL/L (3.5-5.1); SODIUM LEVEL 140 MMOL/L (136-145); TOTAL PROTEIN 6.9 G/DL (5.7-8.2)
[2022-10-14 22:03] LABS: FREE T4 1.09 NG/DL (0.89-1.76)
[2022-10-14 22:04] LABS: THYROID STIMULATING HORMONE 2.199 uIU/ML (0.55-4.78)
[2022-10-14 22:09] LABS: CPK CREATINE PHOSPHOKINASE 91 U/L (34-145); MB/CK RELATIVE INDEX 1.09 (< OR =4)
[2022-10-15] MEDS ORDERED: NS 1,000 ML IV ONE (00:25)
[2022-10-15] MEDS ORDERED: ONDANSETRON 4MG 2ML VIAL IV ONE (00:25)
[2022-10-15] MEDS ORDERED: LORazepam 2 MG/ML VIAL IV STA (00:26)
[2022-10-15] MEDS ORDERED: ONDA4TAB6 PO (01:34)
[2022-10-15 01:45] VITALS: BP 137/63
== END 2022-10-15 02:05 | disposition home or self-care (01) ==
LOC: M ED 16:20
DX: R00.2 Palpitations (principal); R42 Dizziness and giddiness; F41.9 Anxiety disorder, unspecified; F43.10 Post-traumatic stress disorder, unspecified; F32.A Depression, unspecified; I34.1 Nonrheumatic mitral (valve) prolapse; Z88.0 Allergy status to penicillin; Z88.6 Allergy status to analgesic agent; Z79.899 Other long term (current) drug therapy
CPT/HCPCS: 71045; 80048; 80076; 82550; 82553; 83690; 84439; 84443; 85025; 85379; 93005; 96374; 96375; 99284; J2060; J2405

== ENCOUNTER → 2022-10-26 | Outpatient (CLI) | payer OTHER ==
[~2022-10-26] MED LIST changes: +OMEP-173; +ONDA4TAB6 PO
[2022-10-26 14:49] LABS: TOTAL 25(OH) VITAMIN D 26.7 NG/ML (20.0-100.0)
[2022-10-26 14:50] LABS: MAGNESIUM LEVEL 2.2 MG/DL (1.8-2.4)
== END ==
LOC: M LAB 13:57
PROVIDERS: ATTEND Internal Medicine
DX: E55.9 Vitamin D deficiency, unspecified (principal); E83.41 Hypermagnesemia

== ENCOUNTER → 2022-11-10 | Outpatient (REF) | payer OTHER | LOC: M LAB REF 19:00 | PROVIDERS: ATTEND Physician Assistant Medical | DX: R05.9 Cough, unspecified (principal); R50.9 Fever, unspecified ==

== ENCOUNTER → 2023-04-02 | Outpatient (REF) | payer OTHER ==
[2023-04-02 17:58] LABS: APPEARANCE, URINE HAZY (CLEAR); BACTERIA, URINE AUTO NEGATIVE (NEGATIVE); BILIRUBIN, URINE AUTO NEGATIVE (NEGATIVE); BLOOD, URINE BLOOD 2+ (NEGATIVE); COLOR, URINE YELLOW (YELLOW); GLUCOSE, URINE (UA) AUTO NEGATIVE (NEGATIVE); KETONE, URINE AUTO NEGATIVE (NEGATIVE); LEUKOCYTE ESTERASE, URINE AUTO NEGATIVE (NEGATIVE); MUCUS, URINE SMALL (NEGATIVE); NITRITE, URINE AUTO NEGATIVE (NEGATIVE); PROTEIN, URINE AUTO NEGATIVE (NEGATIVE); RBC, URINE AUTO 8 /HPF (0-3); SPECIFIC GRAVITY URINE AUTO 1.021 (1.002-1.035); SQUAMOUS EPITHELIAL CELL UR AU 3 /HPF (0-6); UROBILINOGEN, URINE AUTO 0.2 mg/dL (0.0-2.0); WBC, URINE AUTO 0 /HPF (0-3)
== END ==
LOC: M LAB REF 16:51
PROVIDERS: ATTEND Physician Assistant Medical
DX: N39.0 Urinary tract infection, site not specified (principal)

== ENCOUNTER 2023-08-04 12:43 | Emergency (ER) | payer OTHER ==
[~2023-08-04] VITALS: Ht 162.6 cm; Wt 89.6 kg
[2023-08-04] MEDS ORDERED: ATIV1TAB10 (12:52)
[2023-08-04] MEDS ORDERED: DOXY100C3 (12:52)
[2023-08-04] MEDS ORDERED: NS 500 ML IV ONE (13:15)
[2023-08-04] MEDS ORDERED: LORazepam 0.5 MG TAB PO ONE (13:20)
[2023-08-04 13:40] LABS: BASO % 0.3 % (0.0-1.0); EOS # 0.1 10^3/uL (0.0-0.5); EOS % 1.9 % (0.0-3.0); HEMATOCRIT 36.8 % (36.0-47.0); HEMOGLOBIN 12.3 g/dl (12.0-15.5); LYMPH # 1.5 10^3/uL (1.5-5.0); LYMPH % 21.8 % (24.0-44.0); MEAN CORPUSCULAR HEMOGLOBIN 29.6 pg (27.0-33.0); MEAN CORPUSCULAR HGB CONC 33.4 g/dl (32.0-36.5); MEAN CORPUSCULAR VOLUME 88.7 fl (80.0-96.0); MONO # 0.3 10^3/uL (0.0-0.8); MONO % 4.3 % (2.0-8.0); NEUTROPHILS % 71.6 % (36.0-66.0); PLATELET COUNT, AUTOMATED 345 10^3/uL (150-450); RED BLOOD COUNT 4.15 10^6/uL (4.00-5.40); WHITE BLOOD COUNT 6.9 10^3/uL (4.0-10.0)
[2023-08-04 13:57] LABS: CK-MB VALUE MASS 1.1 NG/ML (<3.6)
[2023-08-04 14:00] LABS: ALBUMIN 4.1 G/DL (3.2-5.2); ALKALINE PHOSPHATASE 102 U/L (46-116); ALT/SGPT 19 U/L (7.0-40); AST/SGOT 14 U/L (<34); BILIRUBIN,DIRECT 0.1 MG/DL (<0.4); BILIRUBIN,TOTAL 0.5 MG/DL (0.3-1.2); BLOOD UREA NITROGEN 14 MG/DL (9-23); CALCIUM LEVEL 10.4 MG/DL (8.5-10.1); CARBON DIOXIDE LEVEL 25 MMOL/L (20-31); CHLORIDE LEVEL 109 MMOL/L (98-107); CREATININE FOR GFR 0.67 MG/DL (0.55-1.30); GLOMERULAR FILTRATION RATE > 60.0 (>58); GLUCOSE, FASTING 126 MG/DL (60-100); MAGNESIUM LEVEL 2.2 MG/DL (1.8-2.4); PHOSPHORUS LEVEL 2.3 MG/DL (2.5-4.9); POTASSIUM SERUM 3.9 MMOL/L (3.5-5.1); SODIUM LEVEL 143 MMOL/L (136-145); TOTAL PROTEIN 7.1 G/DL (5.7-8.2)
[2023-08-04 14:01] LABS: FREE T4 0.99 NG/DL (0.89-1.76)
[2023-08-04 14:02] LABS: THYROID STIMULATING HORMONE 0.752 uIU/ML (0.55-4.78)
[2023-08-04 14:03] LABS: HCG, SERUM QUALITATIVE NEGATIVE (NEGATIVE)
[2023-08-04 14:04] LABS: CPK CREATINE PHOSPHOKINASE 128 U/L (34-145); MB/CK RELATIVE INDEX 0.85 (< OR =4)
[2023-08-04] MEDS ORDERED: NEUTRA-PHOS 1.5 GM PACKET PO ONE (14:05)
[2023-08-04] MEDS ORDERED: ISOVUE-370 76% 100ML VIAL As Ordered ONE (14:19)
[2023-08-04 14:57] LABS: CK-MB VALUE MASS < 1.0 NG/ML (<3.6)
[2023-08-04 14:58] LABS: CPK CREATINE PHOSPHOKINASE 112 U/L (34-145); MB/CK RELATIVE INDEX 0.89 (< OR =4)
[2023-08-04 15:13] VITALS: O2SAT 99
[2023-08-04 15:15] VITALS: BP 137/78; TEMP 97.7
== END 2023-08-04 15:27 | disposition home or self-care (01) ==
LOC: M ED 12:43
DX: R00.2 Palpitations (principal); F43.10 Post-traumatic stress disorder, unspecified; F41.9 Anxiety disorder, unspecified; F32.A Depression, unspecified; G43.909 Migraine, unspecified, not intractable, without status migrainosus; Z87.891 Personal history of nicotine dependence; Z88.0 Allergy status to penicillin; Z88.6 Allergy status to analgesic agent
CPT/HCPCS: 71275; 80048; 80076; 82550; 82553; 83735; 84100; 84439; 84443; 84703; 85025; 93005; 93041; 94760; 96360; 96361; 99285; Q9967

== ENCOUNTER → 2023-10-04 | Outpatient (CLI) | payer OTHER ==
[~2023-10-04] MED LIST changes: +ATIV1TAB10; +DOXY100C3
== END ==
LOC: M RAD 10:45
PROVIDERS: ATTEND Physician Assistant
DX: R10.2 Pelvic and perineal pain (principal); R30.0 Dysuria; Z90.710 Acquired absence of both cervix and uterus

== ENCOUNTER 2023-10-30 08:59 | Emergency (ER) | payer OTHER ==
[~2023-10-30] VITALS: Ht 162.6 cm; Wt 88.5 kg
[2023-10-30 09:01] VITALS: BP 162/84; TEMP 98.5; O2SAT 100
== END 2023-10-30 11:14 | disposition left against medical advice (07) ==
LOC: M ED 08:59
DX: Z53.21 Procedure and treatment not carried out due to patient leaving prior to being seen by health care provider (principal)

== ENCOUNTER → 2023-11-05 | Outpatient (REF) | payer OTHER ==
[~2023-11-05] MED LIST changes: +AMIT25TA19; +DOXY-440 PO; -DOXY-444 PO; -KLON0.5T PO; +KLON0.5T8 PO; +METR-265 PO; +OMEP40CA5; +ZOLO100T
[2023-11-05 18:13] LABS: APPEARANCE, URINE HAZY (CLEAR); BACTERIA, URINE AUTO NEGATIVE (NEGATIVE); BILIRUBIN, URINE AUTO NEGATIVE (NEGATIVE); BLOOD, URINE BLOOD 3+ (NEGATIVE); CALCIUM OXALATE CRYSTALS MODERATE; COLOR, URINE YELLOW (YELLOW); GLUCOSE, URINE (UA) AUTO NEGATIVE (NEGATIVE); KETONE, URINE AUTO NEGATIVE (NEGATIVE); LEUKOCYTE ESTERASE, URINE AUTO NEGATIVE (NEGATIVE); MUCUS, URINE SMALL (NEGATIVE); NITRITE, URINE AUTO NEGATIVE (NEGATIVE); PROTEIN, URINE AUTO NEGATIVE (NEGATIVE); RBC, URINE AUTO 1 /HPF (0-3); SPECIFIC GRAVITY URINE AUTO 1.023 (1.002-1.035); SQUAMOUS EPITHELIAL CELL UR AU 5 /HPF (0-6); UROBILINOGEN, URINE AUTO 0.2 mg/dL (0.0-2.0); WBC, URINE AUTO 1 /HPF (0-3)
== END ==
LOC: M SMT 17:11
PROVIDERS: ATTEND Urology
DX: R31.9 Hematuria, unspecified (principal)

== ENCOUNTER 2023-11-25 20:01 | Emergency (ER) | payer MEDICAID, OTHER, SELFPAY ==
[~2023-11-25 20:01] MED LIST changes: -AMIT25TA19; -DOXY-440 PO; +DOXY-444 PO; -METR-265 PO; -OMEP40CA5; -ZOLO100T
[2023-11-25 20:54] LABS: BASO % 0.4 % (0.0-1.0); EOS # 0.2 10^3/uL (0.0-0.5); EOS % 2.8 % (0.0-3.0); HEMATOCRIT 37.6 % (36.0-47.0); HEMOGLOBIN 12.3 g/dl (12.0-15.5); LYMPH % 28.3 % (24.0-44.0); MEAN CORPUSCULAR HEMOGLOBIN 28.6 pg (27.0-33.0); MEAN CORPUSCULAR HGB CONC 32.7 g/dl (32.0-36.5); MEAN CORPUSCULAR VOLUME 87.4 fl (80.0-96.0); MONO # 0.5 10^3/uL (0.0-0.8); MONO % 7.2 % (2.0-8.0); NEUTROPHILS # 4.3 10^3/uL (1.5-8.5); PLATELET COUNT, AUTOMATED 289 10^3/uL (150-450); WHITE BLOOD COUNT 7.1 10^3/uL (4.0-10.0)
[2023-11-25 20:55] LABS: APPEARANCE, URINE HAZY (CLEAR); BACTERIA, URINE AUTO NEGATIVE (NEGATIVE); BILIRUBIN, URINE AUTO NEGATIVE (NEGATIVE); BLOOD, URINE BLOOD 3+ (NEGATIVE); COLOR, URINE YELLOW (YELLOW); GLUCOSE, URINE (UA) AUTO NEGATIVE (NEGATIVE); KETONE, URINE AUTO NEGATIVE (NEGATIVE); LEUKOCYTE ESTERASE, URINE AUTO NEGATIVE (NEGATIVE); MUCUS, URINE SMALL (NEGATIVE); NITRITE, URINE AUTO NEGATIVE (NEGATIVE); PROTEIN, URINE AUTO NEGATIVE (NEGATIVE); RBC, URINE AUTO TNTC /HPF (0-3); SPECIFIC GRAVITY URINE AUTO 1.026 (1.002-1.035); SQUAMOUS EPITHELIAL CELL UR AU 1 /HPF (0-6); UROBILINOGEN, URINE AUTO 0.2 mg/dL (0.0-2.0); WBC, URINE AUTO 0 /HPF (0-3)
[2023-11-25 21:22] LABS: BLOOD UREA NITROGEN 14 MG/DL (9-23); CALCIUM LEVEL 9.9 MG/DL (8.5-10.1); CARBON DIOXIDE LEVEL 25 MMOL/L (20-31); CHLORIDE LEVEL 107 MMOL/L (98-107); CREATININE FOR GFR 0.99 MG/DL (0.55-1.30); GLOMERULAR FILTRATION RATE > 60.0 (>58); GLUCOSE, FASTING 101 MG/DL (60-100); POTASSIUM SERUM 4.3 MMOL/L (3.5-5.1); SODIUM LEVEL 139 MMOL/L (136-145)
[2023-11-26] MEDS ORDERED: METR-265 PO (06:32)
[2023-11-26] MEDS: metroNIDAZOLE (FLAGYL) 500MG TABLET PO ONE (06:46)
[2023-11-26 06:49] VITALS: BP 139/74; TEMP 96.9; O2SAT 100
[2023-11-26 06:50] LABS: Trichomonas vaginalis (AMP) NOT DETECTED (NEGATIVE)
[2023-11-26 07:14] LABS: GC DNA AMPLIFICATION NEGATIVE (NEGATIVE)
== END 2023-11-26 06:53 | disposition home or self-care (01) ==
LOC: M ED 20:01
DX: N76.0 Acute vaginitis (principal); R31.9 Hematuria, unspecified; K21.9 Gastro-esophageal reflux disease without esophagitis; F43.10 Post-traumatic stress disorder, unspecified; F41.9 Anxiety disorder, unspecified; F32.A Depression, unspecified; Z88.0 Allergy status to penicillin; Z88.6 Allergy status to analgesic agent; Z79.83 Long term (current) use of bisphosphonates; Z79.899 Other long term (current) drug therapy; Z79.2 Long term (current) use of antibiotics

== ENCOUNTER → 2023-12-06 | Outpatient (CLI) | payer OTHER ==
[~2023-12-06] MED LIST changes: +METR-265 PO
== END ==
LOC: M WHC 15:01
PROVIDERS: ATTEND Family Medicine
DX: Z12.31 Encounter for screening mammogram for malignant neoplasm of breast (principal)

== ENCOUNTER → 2024-01-14 | Outpatient (CLI) | payer OTHER | LOC: M WHC 13:26 | PROVIDERS: ATTEND Family Medicine | DX: R92.8 Other abnormal and inconclusive findings on diagnostic imaging of breast (principal) ==

== ENCOUNTER 2024-01-24 12:39 | Emergency (ER) | payer OTHER, SELFPAY ==
[~2024-01-24] VITALS: Ht 162.6 cm; Wt 87.8 kg
[~2024-01-24 12:39] MED LIST changes: +DOXY-440 PO; -DOXY-444 PO
[2024-01-24] MEDS ORDERED: OMEP40CA5 (13:31)
[2024-01-24] MEDS ORDERED: AMIT25TA19 (13:31)
[2024-01-24] MEDS ORDERED: ZOLO100T (13:31)
[2024-01-24 14:10] LABS: BASO % 0.3 % (0.0-1.0); EOS # 0.2 10^3/uL (0.0-0.5); EOS % 2.5 % (0.0-3.0); HEMATOCRIT 35.2 % (36.0-47.0); HEMOGLOBIN 11.5 g/dl (12.0-15.5); LYMPH # 1.5 10^3/uL (1.5-5.0); LYMPH % 24.5 % (24.0-44.0); MEAN CORPUSCULAR HEMOGLOBIN 28.8 pg (27.0-33.0); MEAN CORPUSCULAR HGB CONC 32.7 g/dl (32.0-36.5); MEAN CORPUSCULAR VOLUME 88.2 fl (80.0-96.0); MONO # 0.4 10^3/uL (0.0-0.8); MONO % 6.1 % (2.0-8.0); NEUTROPHILS % 66.4 % (36.0-66.0); PLATELET COUNT, AUTOMATED 270 10^3/uL (150-450); RED BLOOD COUNT 3.99 10^6/uL (4.00-5.40)
[2024-01-24 14:43] LABS: BLOOD UREA NITROGEN 8 MG/DL (9-23); CARBON DIOXIDE LEVEL 26 MMOL/L (20-31); CHLORIDE LEVEL 109 MMOL/L (98-107); CREATININE FOR GFR 0.87 MG/DL (0.55-1.30); GLOMERULAR FILTRATION RATE > 60.0 (>58); GLUCOSE, FASTING 95 MG/DL (60-100); SODIUM LEVEL 141 MMOL/L (136-145)
[2024-01-24 15:28] VITALS: BP 138/80; TEMP 97.8; O2SAT 100
== END 2024-01-24 15:29 | disposition home or self-care (01) ==
LOC: M ED 12:39
DX: T88.7XXA Unspecified adverse effect of drug or medicament, initial encounter (principal); F43.10 Post-traumatic stress disorder, unspecified; K21.9 Gastro-esophageal reflux disease without esophagitis; K58.9 Irritable bowel syndrome, unspecified; Z88.0 Allergy status to penicillin; Z88.8 Allergy status to other drugs, medicaments and biological substances

== ENCOUNTER → 2024-01-27 | Outpatient (REF) | payer OTHER ==
[~2024-01-27] MED LIST changes: +AMIT25TA19; +OMEP40CA5; +ZOLO100T
[2024-01-27 17:26] LABS: C REACTIVE PROTEIN QUANTITATIV < 0.40 MG/DL (<1.0)
[2024-01-27 17:27] LABS: MAGNESIUM LEVEL 2.2 MG/DL (1.8-2.4); THYROID STIMULATING HORMONE 1.277 uIU/ML (0.55-4.78)
[2024-01-27 17:30] LABS: VITAMIN B12 LEVEL 199 PG/ML (211-911)
== END ==
LOC: M SFHCCLAY 09:26
PROVIDERS: ATTEND Physician Assistant
DX: R42 Dizziness and giddiness (principal); R53.83 Other fatigue; M25.50 Pain in unspecified joint

== ENCOUNTER 2024-03-14 15:50 | Emergency (ER) | payer OTHER ==
[~2024-03-14] VITALS: Ht 162.6 cm; Wt 89.5 kg
[~2024-03-14 15:50] MED LIST changes: +ONDA-282 PO; -ONDA4TAB6 PO
[2024-03-14] MEDS ORDERED: GLYCCAP PO (16:06)
[2024-03-14] MEDS: fentaNYL 100 MCG/2 ML INJECTION IV PRN (16:11)
[2024-03-14] MEDS: ONDANSETRON 4MG 2ML VIAL IV ONE (16:11)
[2024-03-14] MEDS: HYDROMORPHONE HCL 0.5 MG/ 0.5 ML SYRINGE IV PRN (17:25)
[2024-03-14] MEDS ORDERED: PERC5TAB12 PO (21:00)
[2024-03-14 21:30] VITALS: BP 150/79; TEMP 94.6
[2024-03-14 21:45] VITALS: O2SAT 98
[2024-03-14] MEDS: OXYCODONE/APAP 5MG/325MG(HOME DOSE PACK) PO ONE (21:52)
== END 2024-03-14 22:08 | disposition home or self-care (01) ==
LOC: EDBD 15:50 → M ED 15:50
DX: S83.115A Anterior dislocation of proximal end of tibia, left knee, initial encounter (principal); M23.92 Unspecified internal derangement of left knee; M25.462 Effusion, left knee; W19.XXXA Unspecified fall, initial encounter; Y92.009 Unspecified place in unspecified non-institutional (private) residence as the place of occurrence of the external cause; Y93.9 Activity, unspecified; Y99.9 Unspecified external cause status; K21.9 Gastro-esophageal reflux disease without esophagitis; F41.9 Anxiety disorder, unspecified; F32.A Depression, unspecified; F43.10 Post-traumatic stress disorder, unspecified; Z79.899 Other long term (current) drug therapy; Z88.0 Allergy status to penicillin; Z88.8 Allergy status to other drugs, medicaments and biological substances
CPT/HCPCS: 27550; 73502; 73552; 73560; 73564; 73721; 96374; 96375; 96376; 99291; J1170; J2405; J3010

== ENCOUNTER → 2024-04-07 | Outpatient (REF) | payer OTHER ==
[~2024-04-07] MED LIST changes: +ACET325C5 PO; +CELE1CAP4 PO; +COLA100C5 PO; +GABA-1171 PO; +GLYCCAP PO; +OXYC-1 PO; +PERC5TAB12 PO
[2024-04-07 18:04] LABS: BASO % 0.5 % (0.0-1.0); EOS # 0.1 10^3/uL (0.0-0.5); EOS % 2.3 % (0.0-3.0); HEMATOCRIT 37.2 % (36.0-47.0); HEMOGLOBIN 11.7 g/dl (12.0-15.5); LYMPH # 1.5 10^3/uL (1.5-5.0); LYMPH % 23.7 % (24.0-44.0); MEAN CORPUSCULAR HEMOGLOBIN 28.3 pg (27.0-33.0); MEAN CORPUSCULAR HGB CONC 31.5 g/dl (32.0-36.5); MEAN CORPUSCULAR VOLUME 89.9 fl (80.0-96.0); MONO # 0.4 10^3/uL (0.0-0.8); MONO % 6.2 % (2.0-8.0); NEUTROPHILS # 4.1 10^3/uL (1.5-8.5); NEUTROPHILS % 66.8 % (36.0-66.0); PLATELET COUNT, AUTOMATED 323 10^3/uL (150-450); RED BLOOD COUNT 4.14 10^6/uL (4.00-5.40); WHITE BLOOD COUNT 6.2 10^3/uL (4.0-10.0)
[2024-04-07 18:12] LABS: ALKALINE PHOSPHATASE 99 U/L (46-116); ALT/SGPT 18 U/L (7.0-40); AST/SGOT < 8 U/L (<34); BILIRUBIN,TOTAL 0.5 MG/DL (0.3-1.2); BLOOD UREA NITROGEN 10 MG/DL (9-23); CALCIUM LEVEL 11.3 MG/DL (8.5-10.1); CARBON DIOXIDE LEVEL 27 MMOL/L (20-31); CHLORIDE LEVEL 107 MMOL/L (98-107); CREATININE FOR GFR 0.63 MG/DL (0.55-1.30); GLOMERULAR FILTRATION RATE > 60.0 (>58); GLUCOSE, FASTING 92 MG/DL (60-100); POTASSIUM SERUM 4.4 MMOL/L (3.5-5.1); SODIUM LEVEL 141 MMOL/L (136-145); TOTAL PROTEIN 6.7 G/DL (5.7-8.2)
[2024-04-08 09:55] LABS: TOTAL 25(OH) VITAMIN D 15.1 NG/ML (20.0-100.0)
== END ==
LOC: M SFHCCLAY 09:22
PROVIDERS: ATTEND Physician Assistant
DX: Z01.818 Encounter for other preprocedural examination (principal); E83.52 Hypercalcemia

== ENCOUNTER → 2024-04-09 | Outpatient (REF) | payer OTHER | LOC: M SFHCCLAY 14:09 | PROVIDERS: ATTEND Physician Assistant | DX: E83.52 Hypercalcemia (principal) ==

== ENCOUNTER 2024-04-13 13:24 | Day surgery (SDC) | payer OTHER ==
[~2024-04-13] VITALS: Ht 162.6 cm; Wt 89.8 kg
[~2024-04-13 13:24] MED LIST changes: -ACET325C5 PO; -CELE1CAP4 PO; -COLA100C5 PO; -OXYC-1 PO
[2024-04-13] MEDS ORDERED: LR 1,000 ML IV SCH (13:40)
[2024-04-13] MEDS: dexAMETHasone 10MG/1ML VIAL PRES.FREE PN ONE (15:12)
[2024-04-13] MEDS ORDERED: LIDOCAINE 1% SDV 5ML VIAL PN ONE (15:15)
[2024-04-13] MEDS ORDERED: OXYC-1 PO (15:57)
[2024-04-13] MEDS ORDERED: CELE1CAP4 PO (16:00)
[2024-04-13] MEDS ORDERED: ONDA-282 PO (16:01)
[2024-04-13] MEDS ORDERED: ACET325C5 PO (16:04)
[2024-04-13] MEDS ORDERED: COLA100C5 PO (16:05)
[2024-04-13] MEDS: fentaNYL 100 MCG/2 ML INJECTION IV PRN ×2 (16:12→19:59)
[2024-04-13] MEDS: MIDAZOLAM INJ 2MG/2ML VIAL IV PRN (16:12)
[2024-04-13] MEDS: ROPIvacaine 0.5% 30ML VIAL PN ONE (16:14)
[2024-04-13] MEDS ORDERED: ROCURONIUM BROMIDE 50MG/5ML VIAL As Ordered ONE (16:16)
[2024-04-13] MEDS ORDERED: LIDOCAINE 2% 100MG/5ML SDV (FOR ANES.) As Ordered ONE (16:16)
[2024-04-13] MEDS ORDERED: fentaNYL 100 MCG/2 ML INJECTION As Ordered ONE (16:16)
[2024-04-13] MEDS ORDERED: propofoL 200 MG/20 ML VIAL As Ordered ONE (16:16)
[2024-04-13] MEDS: TRANEXAMIC ACID 100 MG/ML 10ML VIAL As Ordered ONE (16:45)
[2024-04-13] MEDS: ceFAZolin 2 GM/D5W 50 ML IV BAG As Ordered ONE (16:57)
[2024-04-13] MEDS ORDERED: HYDROmorphone HCL 2MG/ML 1ML VIAL As Ordered ONE (17:12)
[2024-04-13] MEDS ORDERED: ACETAMINOPHEN 1000MG 100ML IV BAG As Ordered ONE (17:13)
[2024-04-13] MEDS ORDERED: ONDANSETRON 4MG 2ML VIAL As Ordered ONE (17:25)
[2024-04-13] MEDS ORDERED: SUGAMMADEX SODIUM 500 MG/5 ML VIAL (BRIDION) As Ordered ONE (17:25)
[2024-04-13] MEDS: ceFAZolin SOD 2 GM in IV 1 EA IV ONE (17:34)
[2024-04-13] MEDS ORDERED: MORPHINE 2 MG/ML 1ML VIAL IV PRN (19:15)
[2024-04-13] MEDS ORDERED: MEPERIDINE 25 MG/ML 1ML VIAL As Ordered ONE (19:30)
[2024-04-13] MEDS: ONDANSETRON 4MG 2ML VIAL IV PRN (19:36)
[2024-04-13] MEDS: MEPERIDINE 25 MG/ML 1ML VIAL IV ONE (19:36)
[2024-04-13] MEDS: oxyCODONE 5MG TAB PO PRN (19:43)
[2024-04-13] MEDS: MEPERIDINE 25 MG/ML 1ML VIAL IV PRN (19:44)
[2024-04-13] MEDS ORDERED: diphenhydrAMINE 50MG/ML VIAL IV PRN (20:30)
[2024-04-13 21:20] VITALS: BP 154/93; TEMP 96.8; O2SAT 100
[2024-04-15] MEDS ORDERED: CELE1CAP4 PO (11:47)
== END 2024-04-13 21:25 | disposition home or self-care (01) ==
LOC: M SDC 13:24
PROVIDERS: ATTEND Orthopaedic Surgery
DX: S83.522A Sprain of posterior cruciate ligament of left knee, initial encounter (principal); X50.0XXA Overexertion from strenuous movement or load, initial encounter; I34.1 Nonrheumatic mitral (valve) prolapse; Y93.9 Activity, unspecified; Y92.009 Unspecified place in unspecified non-institutional (private) residence as the place of occurrence of the external cause; K21.9 Gastro-esophageal reflux disease without esophagitis; F43.10 Post-traumatic stress disorder, unspecified; Z79.899 Other long term (current) drug therapy; Z90.710 Acquired absence of both cervix and uterus; Z88.0 Allergy status to penicillin; Z88.6 Allergy status to analgesic agent; Z91.040 Latex allergy status; Z87.19 Personal history of other diseases of the digestive system
CPT/HCPCS: 27427; 73560; 76000; C1713; C1762; J0131; J0665; J0690; J1100; J1170; J2175; J2250; J2405; J3010

== ENCOUNTER 2024-04-20 19:12 | Emergency (ER) | payer OTHER ==
[~2024-04-20] VITALS: Ht 162.6 cm; Wt 88.6 kg
[~2024-04-20 19:12] MED LIST changes: +ACET325C5 PO; +CELE1CAP4 PO; +COLA100C5 PO; +OXYC-1 PO
[2024-04-20] MEDS: KETOROLAC 60MG 2ML VIAL IM ONE (22:59)
[2024-04-20 23:13] VITALS: BP 128/74; TEMP 98.8; O2SAT 98
== END 2024-04-20 23:16 | disposition home or self-care (01) ==
LOC: M ED 19:12
DX: G89.18 Other acute postprocedural pain (principal); M25.562 Pain in left knee; G43.909 Migraine, unspecified, not intractable, without status migrainosus; K21.9 Gastro-esophageal reflux disease without esophagitis; F43.10 Post-traumatic stress disorder, unspecified; F41.9 Anxiety disorder, unspecified; F32.A Depression, unspecified; I34.1 Nonrheumatic mitral (valve) prolapse; Z79.899 Other long term (current) drug therapy; Z88.0 Allergy status to penicillin; Z88.8 Allergy status to other drugs, medicaments and biological substances; Z91.040 Latex allergy status
CPT/HCPCS: 93971; 96372; 99283; J1885

== ENCOUNTER → 2024-04-22 | Outpatient (RCR) | payer OTHER | LOC: M PT 11:35 | PROVIDERS: ATTEND Orthopaedic Surgery | DX: S83.105D Unspecified dislocation of left knee, subsequent encounter (principal) ==

== ENCOUNTER 2024-04-27 14:13 | Day surgery (SDC) | payer OTHER ==
[~2024-04-27] VITALS: Ht 162.6 cm; Wt 89.4 kg
[2024-04-27] MEDS ORDERED: LR 1,000 ML IV SCH (14:40)
[2024-04-27] MEDS: EPINEPHrine INJ 1 MG/ML 1ML AMP PN ONE (15:55)
[2024-04-27] MEDS: SCOPOLAMINE 1MG TRANSDERMAL PATCH TOP ONE (15:55)
[2024-04-27] MEDS ORDERED: OXYC-517 PO (16:13)
[2024-04-27] MEDS: fentaNYL 100 MCG/2 ML INJECTION IV PRN ×2 (16:15→20:04)
[2024-04-27] MEDS: MIDAZOLAM INJ 2MG/2ML VIAL IV PRN (16:15)
[2024-04-27] MEDS: ROPIvacaine 0.5% 30ML VIAL PN ONE (16:15)
[2024-04-27] MEDS: dexAMETHasone 10MG/1ML VIAL PRES.FREE PN ONE (16:15)
[2024-04-27] MEDS: LIDOCAINE 1% SDV 5ML VIAL PN ONE (16:15)
[2024-04-27] MEDS ORDERED: EPINEPHrine 1MG/ML INJ 30ML MD-VIAL As Ordered ONE (16:18)
[2024-04-27] MEDS ORDERED: ACETAMINOPHEN 1000MG 100ML IV BAG As Ordered ONE (16:20)
[2024-04-27] MEDS ORDERED: SUGAMMADEX SODIUM 500 MG/5 ML VIAL (BRIDION) As Ordered ONE (16:21)
[2024-04-27] MEDS ORDERED: ONDANSETRON 4MG 2ML VIAL As Ordered ONE (16:21)
[2024-04-27] MEDS ORDERED: ROCURONIUM BROMIDE 50MG/5ML VIAL As Ordered ONE (16:21)
[2024-04-27] MEDS ORDERED: LIDOCAINE 2% 100MG/5ML SDV (FOR ANES.) As Ordered ONE (16:21)
[2024-04-27] MEDS ORDERED: propofoL 200 MG/20 ML VIAL As Ordered ONE (16:22)
[2024-04-27] MEDS ORDERED: fentaNYL 100 MCG/2 ML INJECTION As Ordered ONE (16:27)
[2024-04-27] MEDS ORDERED: HYDROmorphone HCL 2MG/ML 1ML VIAL As Ordered ONE (17:01)
[2024-04-27] MEDS: ceFAZolin 2 GM/D5W 50 ML IV BAG As Ordered ONE (17:14)
[2024-04-27] MEDS ORDERED: METOCLOPRAMIDE INJ 10MG/2ML VIAL As Ordered ONE (17:16)
[2024-04-27] MEDS ORDERED: LABETALOL 100MG/20ML VIAL As Ordered ONE (18:29)
[2024-04-27] MEDS ORDERED: HYDROMORPHONE HCL 0.5 MG/ 0.5 ML SYRINGE IV PRN (19:35)
[2024-04-27] MEDS: LR 1,000 ML IV SCH (19:43)
[2024-04-27] MEDS: oxyCODONE 5MG TAB PO PRN (19:44)
[2024-04-27] MEDS: ONDANSETRON 4MG 2ML VIAL IV PRN (19:44)
[2024-04-27] MEDS ORDERED: MEPERIDINE 25 MG/ML 1ML VIAL As Ordered ONE (19:58)
[2024-04-27] MEDS: MEPERIDINE 25 MG/ML 1ML VIAL IV PRN (20:05)
[2024-04-27 20:35] VITALS: BP 152/91; TEMP 98.2; O2SAT 96
== END 2024-04-27 21:16 | disposition home or self-care (01) ==
LOC: M SDC 14:13
PROVIDERS: ATTEND Orthopaedic Surgery
DX: S83.512A Sprain of anterior cruciate ligament of left knee, initial encounter (principal); S83.522A Sprain of posterior cruciate ligament of left knee, initial encounter; X50.0XXA Overexertion from strenuous movement or load, initial encounter; Y92.89 Other specified places as the place of occurrence of the external cause; Y93.9 Activity, unspecified; Y99.9 Unspecified external cause status; Z88.0 Allergy status to penicillin; Z88.8 Allergy status to other drugs, medicaments and biological substances; Z91.040 Latex allergy status
CPT/HCPCS: 29888; 64447; 76000; C1713; C1762; J0131; J0171; J0665; J0690; J1100; J1170; J1920; J2175; J2250; J2405; J2765; J3010

== ENCOUNTER 2024-05-14 05:33 | Emergency (ER) | payer OTHER ==
[~2024-05-14] VITALS: Ht 162.6 cm; Wt 89.9 kg
[~2024-05-14 05:33] MED LIST changes: +OXYC-517 PO
[2024-05-14] MEDS: NS 1,000 ML IV ONE (07:40)
[2024-05-14] MEDS: ACETAMINOPHEN *IV* 1,000 MG in IV 1 EA IV ONE (07:40)
[2024-05-14] MEDS: ONDANSETRON 4MG 2ML VIAL IV ONE (07:41)
[2024-05-14 07:58] LABS: BASO % 0.4 % (0.0-1.0); EOS # 0.2 10^3/uL (0.0-0.5); EOS % 1.8 % (0.0-3.0); HEMATOCRIT 34.8 % (36.0-47.0); LYMPH # 1.4 10^3/uL (1.5-5.0); LYMPH % 16.9 % (24.0-44.0); MEAN CORPUSCULAR HEMOGLOBIN 28.1 pg (27.0-33.0); MEAN CORPUSCULAR HGB CONC 31.6 g/dl (32.0-36.5); MONO # 0.5 10^3/uL (0.0-0.8); MONO % 6.1 % (2.0-8.0); NEUTROPHILS # 6.1 10^3/uL (1.5-8.5); NEUTROPHILS % 74.4 % (36.0-66.0); PLATELET COUNT, AUTOMATED 278 10^3/uL (150-450); RED BLOOD COUNT 3.91 10^6/uL (4.00-5.40); WHITE BLOOD COUNT 8.2 10^3/uL (4.0-10.0)
[2024-05-14 08:22] LABS: C REACTIVE PROTEIN QUANTITATIV < 0.40 MG/DL (<1.0); LIPASE 27 U/L (12-53)
[2024-05-14 08:24] LABS: ALBUMIN 4.2 G/DL (3.2-5.2); ALKALINE PHOSPHATASE 126 U/L (46-116); ALT/SGPT 20 U/L (7.0-40); AST/SGOT < 8 U/L (<34); BILIRUBIN,DIRECT 0.1 MG/DL (<0.4); BILIRUBIN,TOTAL 0.5 MG/DL (0.3-1.2); BLOOD UREA NITROGEN 9 MG/DL (9-23); CALCIUM LEVEL 11.1 MG/DL (8.5-10.1); CARBON DIOXIDE LEVEL 24 MMOL/L (20-31); CHLORIDE LEVEL 108 MMOL/L (98-107); GLOMERULAR FILTRATION RATE > 60.0 (>58); GLUCOSE, FASTING 114 MG/DL (60-100); POTASSIUM SERUM 3.8 MMOL/L (3.5-5.1); SODIUM LEVEL 139 MMOL/L (136-145); TOTAL PROTEIN 7.1 G/DL (5.7-8.2)
[2024-05-14] MEDS ORDERED: ISOVUE-370 76% 100ML VIAL As Ordered ONE (09:14)
[2024-05-14] MEDS ORDERED: ONDA-282 PO (10:27)
[2024-05-14] MEDS ORDERED: PERC5TAB12 PO (10:27)
[2024-05-14] MEDS ORDERED: KETO10TAB PO (10:27)
[2024-05-14] MEDS ORDERED: FLOM0.4C39 PO (10:27)
[2024-05-14 10:53] VITALS: BP 129/85; TEMP 98.1; O2SAT 100
== END 2024-05-14 11:24 | disposition home or self-care (01) ==
LOC: M ED 05:33
DX: N20.1 Calculus of ureter (principal); K21.9 Gastro-esophageal reflux disease without esophagitis; D64.9 Anemia, unspecified; F43.10 Post-traumatic stress disorder, unspecified; F41.9 Anxiety disorder, unspecified; Z79.899 Other long term (current) drug therapy; Z88.0 Allergy status to penicillin; Z88.8 Allergy status to other drugs, medicaments and biological substances; Z91.040 Latex allergy status
CPT/HCPCS: 74177; 80048; 80076; 81001; 83690; 85025; 86140; 96361; 96365; 96375; 99284; J0131; J2405; Q9967

== ENCOUNTER → 2024-05-20 | Outpatient (CLI) | payer OTHER ==
[~2024-05-20] MED LIST changes: +FLOM0.4C39 PO; +KETO10TAB PO
== END ==
LOC: M SOG 07:59
PROVIDERS: ATTEND Physician Assistant
DX: M25.572 Pain in left ankle and joints of left foot (principal); R93.6 Abnormal findings on diagnostic imaging of limbs

== ENCOUNTER 2024-06-16 12:00 | Outpatient (RCR) | payer OTHER | END 2024-06-22 | LOC: M PT 12:00 | PROVIDERS: ATTEND Physician Assistant | DX: S83.105D Unspecified dislocation of left knee, subsequent encounter (principal); S83.512A Sprain of anterior cruciate ligament of left knee, initial encounter; S83.8X2A Sprain of other specified parts of left knee, initial encounter ==

== ENCOUNTER 2024-06-24 10:59 | Emergency (ER) | payer OTHER ==
[~2024-06-24] VITALS: Ht 162.6 cm; Wt 85.0 kg
[2024-06-24] MEDS: GABAPENTIN 300 MG CAP PO ONE (12:49)
[2024-06-24 15:47] LABS: BASO % 0.5 % (0.0-1.0); EOS # 0.2 10^3/uL (0.0-0.5); EOS % 2.8 % (0.0-3.0); HEMATOCRIT 36.5 % (36.0-47.0); LYMPH # 1.7 10^3/uL (1.5-5.0); LYMPH % 28.4 % (24.0-44.0); MEAN CORPUSCULAR HEMOGLOBIN 28.5 pg (27.0-33.0); MEAN CORPUSCULAR HGB CONC 32.9 g/dl (32.0-36.5); MEAN CORPUSCULAR VOLUME 86.7 fl (80.0-96.0); MONO # 0.4 10^3/uL (0.0-0.8); MONO % 6.7 % (2.0-8.0); NEUTROPHILS # 3.7 10^3/uL (1.5-8.5); NEUTROPHILS % 61.4 % (36.0-66.0); PLATELET COUNT, AUTOMATED 266 10^3/uL (150-450); RED BLOOD COUNT 4.21 10^6/uL (4.00-5.40); WHITE BLOOD COUNT 6.1 10^3/uL (4.0-10.0)
[2024-06-24 15:51] LABS: ERYTHROCYTE SEDIMENTATION RATE 10 mm/hr (0-20)
[2024-06-24 16:13] LABS: C REACTIVE PROTEIN QUANTITATIV < 0.40 MG/DL (<1.0)
[2024-06-24 16:15] LABS: BLOOD UREA NITROGEN 6 MG/DL (9-23); CALCIUM LEVEL 10.6 MG/DL (8.5-10.1); CARBON DIOXIDE LEVEL 24 MMOL/L (20-31); CHLORIDE LEVEL 108 MMOL/L (98-107); CREATININE FOR GFR 0.64 MG/DL (0.55-1.30); GLOMERULAR FILTRATION RATE > 60.0 (>58); GLUCOSE, FASTING 87 MG/DL (60-100); POTASSIUM SERUM 4.2 MMOL/L (3.5-5.1); SODIUM LEVEL 137 MMOL/L (136-145)
[2024-06-24] MEDS ORDERED: NEUR300C PO (16:42)
[2024-06-24 17:06] VITALS: BP 133/90; TEMP 98.8; O2SAT 97
== END 2024-06-24 17:08 | disposition home or self-care (01) ==
LOC: M ED 10:59
DX: I80.02 Phlebitis and thrombophlebitis of superficial vessels of left lower extremity (principal); M96.842 Postprocedural seroma of a musculoskeletal structure following a musculoskeletal system procedure; G57.92 Unspecified mononeuropathy of left lower limb; K21.9 Gastro-esophageal reflux disease without esophagitis; Z88.0 Allergy status to penicillin; Z88.8 Allergy status to other drugs, medicaments and biological substances; Z91.040 Latex allergy status; Z79.1 Long term (current) use of non-steroidal anti-inflammatories (NSAID); Z79.2 Long term (current) use of antibiotics; Z79.899 Other long term (current) drug therapy

== ENCOUNTER 2024-07-07 11:59 | Emergency (ER) | payer OTHER ==
[~2024-07-07] VITALS: Ht 162.6 cm; Wt 91.8 kg
[~2024-07-07 11:59] MED LIST changes: +NEUR300C PO
[2024-07-07 12:03] VITALS: BP 165/87; TEMP 97.2; O2SAT 100
== END 2024-07-07 13:46 | disposition left against medical advice (07) ==
LOC: M ED 11:59
DX: Z53.21 Procedure and treatment not carried out due to patient leaving prior to being seen by health care provider (principal)

== ENCOUNTER 2024-07-21 07:00 | Outpatient (RCR) | payer OTHER | END 2024-07-23 | LOC: M PT 07:00 | PROVIDERS: ATTEND Physician Assistant | DX: S83.105D Unspecified dislocation of left knee, subsequent encounter (principal); S83.512A Sprain of anterior cruciate ligament of left knee, initial encounter; S83.8X1A Sprain of other specified parts of right knee, initial encounter; X58.XXXA Exposure to other specified factors, initial encounter; Y92.9 Unspecified place or not applicable; Y93.9 Activity, unspecified; Y99.8 Other external cause status ==

== ENCOUNTER 2024-08-12 08:30 | Outpatient (RCR) | payer OTHER | END 2024-08-22 | LOC: M PT 08:30 | PROVIDERS: ATTEND Physician Assistant | DX: S83.105D Unspecified dislocation of left knee, subsequent encounter (principal); S83.512D Sprain of anterior cruciate ligament of left knee, subsequent encounter; S83.8X2D Sprain of other specified parts of left knee, subsequent encounter ==

== ENCOUNTER → 2024-08-13 | Outpatient (CLI) | payer OTHER | LOC: M SOG 07:56 | PROVIDERS: ATTEND Physician Assistant | DX: Z53.9 Procedure and treatment not carried out, unspecified reason (principal) ==

== ENCOUNTER → 2024-09-03 | Outpatient (REF) | payer OTHER ==
[~2024-09-03] MED LIST changes: +ALBU2.5V10 NEB; +LEVO75TAB PO
== END ==
LOC: M SFHCCLAY 16:53
PROVIDERS: ATTEND Physician Assistant
DX: R30.0 Dysuria (principal)

== ENCOUNTER → 2024-09-03 | Outpatient (REF) | payer OTHER | LOC: M SFHCCLAY 10:49 | PROVIDERS: ATTEND Physician Assistant | DX: Z53.9 Procedure and treatment not carried out, unspecified reason (principal) ==

== ENCOUNTER 2024-09-06 12:39 | Emergency (ER) | payer OTHER ==
[~2024-09-06] VITALS: Ht 162.6 cm; Wt 93.0 kg
[~2024-09-06 12:39] MED LIST changes: -ALBU2.5V10 NEB; -LEVO75TAB PO
[2024-09-06] MEDS: IPRATROPIUM 0.5MG/ALBUTEROL 2.5MG INH SOL UD 3ML (DUONEB) NEB ONE (13:57)
[2024-09-06 14:36] VITALS: BP 157/70; TEMP 98.4; O2SAT 100
[2024-09-06] MEDS ORDERED: ALBU2.5V10 NEB (14:49)
[2024-09-06] MEDS ORDERED: LEVO75TAB PO (14:50)
== END 2024-09-06 15:13 | disposition home or self-care (01) ==
LOC: M ED 12:39
DX: J18.9 Pneumonia, unspecified organism (principal); K21.9 Gastro-esophageal reflux disease without esophagitis; Z87.442 Personal history of urinary calculi; Z79.899 Other long term (current) drug therapy; Z88.0 Allergy status to penicillin; Z88.8 Allergy status to other drugs, medicaments and biological substances; Z91.040 Latex allergy status

== ENCOUNTER → 2024-09-10 | Outpatient (CLI) | payer OTHER ==
[~2024-09-10] MED LIST changes: +ALBU2.5V10 NEB; +LEVO75TAB PO
== END ==
LOC: M SOG 07:52
PROVIDERS: ATTEND Physician Assistant
DX: Z53.9 Procedure and treatment not carried out, unspecified reason (principal)

== ENCOUNTER 2024-10-06 22:19 | Emergency (ER) | payer OTHER ==
[~2024-10-06] VITALS: Ht 162.6 cm; Wt 91.8 kg
[2024-10-07] MEDS: ACETAMINOPHEN 500 MG TAB PO ONE (02:32)
[2024-10-07] MEDS: ONDANSETRON 4MG TAB PO ONE (02:32)
[2024-10-07 03:30] VITALS: TEMP 98.7
[2024-10-07 04:00] VITALS: BP 118/71; O2SAT 96
[2024-10-07] MEDS ORDERED: REGL10TA6 PO (04:16)
[2024-10-07] MEDS ORDERED: OSEL75CA PO (04:16)
[2024-10-07] MEDS: OSELTAMIVIR PHOSPHATE 75 MG CAP (TAMIFLU) PO ONE (04:22)
== END 2024-10-07 04:26 | disposition home or self-care (01) ==
LOC: M ED 22:19
DX: J09.X2 Influenza due to identified novel influenza A virus with other respiratory manifestations (principal); Z88.0 Allergy status to penicillin; Z88.6 Allergy status to analgesic agent; Z91.040 Latex allergy status; Z79.52 Long term (current) use of systemic steroids; Z79.83 Long term (current) use of bisphosphonates; Z79.899 Other long term (current) drug therapy

== ENCOUNTER 2024-10-20 13:32 | Outpatient (RCR) | payer OTHER ==
[~2024-10-20 13:32] MED LIST changes: +OSEL75CA PO; +REGL10TA6 PO
== END 2024-10-23 ==
LOC: M PT 13:32
PROVIDERS: ATTEND Registered Nurse
DX: S74.02XA Injury of sciatic nerve at hip and thigh level, left leg, initial encounter (principal); M21.372 Foot drop, left foot; Z98.890 Other specified postprocedural states; X58.XXXA Exposure to other specified factors, initial encounter; Y92.9 Unspecified place or not applicable; Y93.9 Activity, unspecified; Y99.9 Unspecified external cause status

== ENCOUNTER 2024-11-17 12:42 | Outpatient (RCR) | payer OTHER | END 2024-11-20 | LOC: M PT 12:42 | PROVIDERS: ATTEND Registered Nurse | DX: S74.02XA Injury of sciatic nerve at hip and thigh level, left leg, initial encounter (principal); M21.372 Foot drop, left foot; X58.XXXA Exposure to other specified factors, initial encounter; Y92.9 Unspecified place or not applicable; Y93.9 Activity, unspecified; Y99.9 Unspecified external cause status ==

== ENCOUNTER → 2024-11-19 | Outpatient (REF) | payer OTHER | LOC: M SFHCCLAY 14:34 | PROVIDERS: ATTEND Family Medicine | DX: Z53.9 Procedure and treatment not carried out, unspecified reason (principal) ==

== ENCOUNTER → 2024-11-19 | Outpatient (CLI) | payer OTHER ==
[2024-11-19 16:43] LABS: IONIZED CALCIUM 5.3 MG/DL (4.5-5.3)
[2024-11-19 17:11] LABS: ALBUMIN 4.2 G/DL (3.2-5.2); ALKALINE PHOSPHATASE 102 U/L (35-104); ALT/SGPT 27 U/L (7.0-40); AST/SGOT 13 U/L (<34); BILIRUBIN,TOTAL 0.5 MG/DL (0.3-1.2); BLOOD UREA NITROGEN 9 MG/DL (9-23); CARBON DIOXIDE LEVEL 24 MMOL/L (20-31); CHLORIDE LEVEL 108 MMOL/L (98-107); CREATININE FOR GFR 0.77 MG/DL (0.55-1.30); GLOMERULAR FILTRATION RATE > 60.0 (>58); GLUCOSE, FASTING 83 MG/DL (60-100); POTASSIUM SERUM 4.2 MMOL/L (3.5-5.1); PTH INTACT 156.4 PG/ML (18.5-88.0); SODIUM LEVEL 141 MMOL/L (136-145); TOTAL PROTEIN 7.2 G/DL (5.7-8.2)
[2024-11-19 17:13] LABS: VITAMIN B12 LEVEL 293 PG/ML (211-911)
== END ==
LOC: M LAB 16:15
PROVIDERS: ATTEND Family Medicine
DX: E83.52 Hypercalcemia (principal); E55.9 Vitamin D deficiency, unspecified; E53.8 Deficiency of other specified B group vitamins

== ENCOUNTER → 2024-12-11 | Outpatient (CLI) | payer OTHER ==
[2024-12-11 15:53] LABS: BLOOD UREA NITROGEN 9 MG/DL (9-23); CALCIUM LEVEL 11.3 MG/DL (8.5-10.1); CARBON DIOXIDE LEVEL 24 MMOL/L (20-31); CHLORIDE LEVEL 107 MMOL/L (98-107); CREATININE FOR GFR 0.72 MG/DL (0.55-1.30); GLOMERULAR FILTRATION RATE > 60.0 (>58); GLUCOSE, FASTING 82 MG/DL (60-100); MAGNESIUM LEVEL 2.3 MG/DL (1.8-2.4); PHOSPHORUS LEVEL 2.5 MG/DL (2.5-4.9); POTASSIUM SERUM 4.2 MMOL/L (3.5-5.1); SODIUM LEVEL 141 MMOL/L (136-145)
[2024-12-11 15:54] LABS: PTH INTACT 108.1 PG/ML (18.5-88.0)
[2024-12-11 15:56] LABS: TOTAL 25(OH) VITAMIN D 9.6 NG/ML (20.0-100.0)
== END ==
LOC: M LAB 14:22
PROVIDERS: ATTEND Nurse Practitioner Family
DX: E21.0 Primary hyperparathyroidism (principal)

== ENCOUNTER 2024-12-18 13:30 | Outpatient (RCR) | payer OTHER | END 2024-12-21 | LOC: M PT 13:30 | PROVIDERS: ATTEND Registered Nurse | DX: S74.02XA Injury of sciatic nerve at hip and thigh level, left leg, initial encounter (principal); M21.372 Foot drop, left foot; X58.XXXA Exposure to other specified factors, initial encounter; Y92.9 Unspecified place or not applicable; Y93.9 Activity, unspecified; Y99.9 Unspecified external cause status ==

== ENCOUNTER → 2025-03-17 | Outpatient (CLI) | payer OTHER ==
[~2025-03-17] MED LIST changes: +D3 M1CAP2 PO; +DULO1CAP5 PO; +FERR325T82 PO; -FLOM0.4C39 PO; +LYRI150C PO; -OMEP40CA5; +OMEP40CA5 PO; +ONDA-284 PO; +TAMS-18 PO
== END ==
LOC: M SOG 06:53
PROVIDERS: ATTEND Physician Assistant
DX: S83.512D Sprain of anterior cruciate ligament of left knee, subsequent encounter (principal)

== ENCOUNTER 2025-04-09 15:08 | Emergency (ER) | payer OTHER ==
[~2025-04-09] VITALS: Ht 162.6 cm; Wt 102.0 kg
[~2025-04-09 15:08] MED LIST changes: -D3 M1CAP2 PO; -DULO1CAP5 PO; -FERR325T82 PO; -LYRI150C PO; -ONDA-284 PO
[2025-04-09 17:26] VITALS: TEMP 97.9
[2025-04-09] MEDS ORDERED: ONDA-284 PO (20:31)
[2025-04-09] MEDS ORDERED: DULO1CAP5 PO (20:31)
[2025-04-09] MEDS ORDERED: FERR325T82 PO (20:31)
[2025-04-09] MEDS ORDERED: D3 M1CAP2 PO (20:31)
[2025-04-09] MEDS ORDERED: LYRI150C PO (20:31)
[2025-04-09] MEDS ORDERED: HOME MED LIST COMPLETE! XX SCH (20:35)
[2025-04-09] MEDS: ACETAMINOPHEN 500 MG TAB PO ONE (20:36)
[2025-04-09 22:58] VITALS: BP 158/86; O2SAT 99
== END 2025-04-09 22:59 | disposition home or self-care (01) ==
LOC: M ED 15:08
DX: S93.401A Sprain of unspecified ligament of right ankle, initial encounter (principal); W19.XXXA Unspecified fall, initial encounter; Y92.009 Unspecified place in unspecified non-institutional (private) residence as the place of occurrence of the external cause; Y93.9 Activity, unspecified; Y99.9 Unspecified external cause status; Z79.899 Other long term (current) drug therapy; Z88.0 Allergy status to penicillin; Z88.8 Allergy status to other drugs, medicaments and biological substances; Z91.040 Latex allergy status

== ENCOUNTER → 2025-04-23 | Outpatient (CLI) | payer OTHER ==
[~2025-04-23] MED LIST changes: +D3 M1CAP2 PO; +DULO1CAP5 PO; +FERR325T82 PO; +LYRI150C PO; +NORE-23 PO; -NORE1TAB94 PO; +ONDA-284 PO
== END ==
LOC: M RAD 16:15
PROVIDERS: ATTEND Orthopaedic Surgery
DX: S83.512D Sprain of anterior cruciate ligament of left knee, subsequent encounter (principal); M25.462 Effusion, left knee

== ENCOUNTER → 2025-05-25 | Outpatient (REF) | payer OTHER ==
[2025-05-25 17:48] LABS: PLATELET COUNT, AUTOMATED 308 10^3/uL (150-450)
[2025-05-25 17:53] LABS: IRON (FE) 68 UG/DL (50-170)
[2025-05-25 17:54] LABS: ALT/SGPT 31 U/L (7.0-40); AST/SGOT 18 U/L (<34); CALCIUM LEVEL 11.3 MG/DL (8.5-10.1); CARBON DIOXIDE LEVEL 26 MMOL/L (20-31); CHLORIDE LEVEL 105 MMOL/L (98-107); CREATININE FOR GFR 0.65 MG/DL (0.55-1.30); GLOMERULAR FILTRATION RATE > 90.0 (>58); POTASSIUM SERUM 4.6 MMOL/L (3.5-5.1); SODIUM LEVEL 140 MMOL/L (136-145)
== END ==
LOC: M SFHCCLAY 11:00
PROVIDERS: ATTEND Family Medicine
DX: R10.84 Generalized abdominal pain (principal); D50.9 Iron deficiency anemia, unspecified

== ENCOUNTER → 2025-06-08 | Outpatient (CLI) | payer OTHER ==
[2025-06-08 14:52] LABS: CALCIUM LEVEL 10.7 MG/DL (8.5-10.1); CARBON DIOXIDE LEVEL 24 MMOL/L (20-31); CHLORIDE LEVEL 106 MMOL/L (98-107); CREATININE FOR GFR 0.72 MG/DL (0.55-1.30); GLOMERULAR FILTRATION RATE > 90.0 (>58); POTASSIUM SERUM 3.9 MMOL/L (3.5-5.1); SODIUM LEVEL 137 MMOL/L (136-145)
[2025-06-08 14:55] LABS: TOTAL 25(OH) VITAMIN D 30.4 NG/ML (20.0-100.0)
[2025-06-08 14:56] LABS: PTH INTACT 133.1 PG/ML (18.5-88.0)
== END ==
LOC: M LAB 13:14
PROVIDERS: ATTEND Nurse Practitioner Family
DX: E21.0 Primary hyperparathyroidism (principal); E55.9 Vitamin D deficiency, unspecified

== ENCOUNTER → 2025-06-23 | Outpatient (REF) | payer OTHER ==
[~2025-06-23] MED LIST changes: +ACET-897 PO; +CARA1TAB6 PO; +PROT1TAB2 PO
[2025-06-23 18:37] LABS: PLATELET COUNT, AUTOMATED 361 10^3/uL (150-450)
[2025-06-23 18:39] LABS: IRON (FE) 113.0 UG/DL (50-170); PERCENT SATURATION 29.4 % (13.2-45.0)
== END ==
LOC: M SFHCCLAY 13:27
PROVIDERS: ATTEND Physician Assistant
DX: K92.2 Gastrointestinal hemorrhage, unspecified (principal); D50.9 Iron deficiency anemia, unspecified

== ENCOUNTER → 2025-07-27 | Outpatient (REF) | payer OTHER ==
[2025-07-27 17:51] LABS: PLATELET COUNT, AUTOMATED 355 10^3/uL (150-450)
[2025-07-27 17:53] LABS: IRON (FE) 36.0 UG/DL (50-170); PERCENT SATURATION 7.5 % (13.2-45.0)
== END ==
LOC: M SFHCCLAY 11:53
PROVIDERS: ATTEND Family Medicine
DX: D50.9 Iron deficiency anemia, unspecified (principal)

== ENCOUNTER → 2025-08-10 | Outpatient (CLI) | payer OTHER | LOC: M RAD 13:56 | PROVIDERS: ATTEND Internal Medicine Gastroenterology | DX: T18.3XXS Foreign body in small intestine, sequela (principal) ==

== ENCOUNTER → 2025-08-26 | Outpatient (REF) | payer OTHER | LOC: M SFHCCLAY 15:44 | PROVIDERS: ATTEND Family Medicine | DX: Z53.9 Procedure and treatment not carried out, unspecified reason (principal) ==

== ENCOUNTER → 2025-08-27 | Outpatient (CLI) | payer OTHER ==
[2025-08-27 16:07] LABS: PLATELET COUNT, AUTOMATED 283 10^3/uL (150-450)
[2025-08-27 16:35] LABS: IRON (FE) 38 UG/DL (50-170); PERCENT SATURATION 8.4 % (13.2-45.0)
[2025-08-27 16:37] LABS: FREE T4 1.17 NG/DL (0.89-1.76)
[2025-08-27 16:57] LABS: ALT/SGPT 30 U/L (7.0-40); AST/SGOT 18 U/L (<34); CALCIUM LEVEL 10.2 MG/DL (8.5-10.1); CARBON DIOXIDE LEVEL 26 MMOL/L (20-31); CHLORIDE LEVEL 107 MMOL/L (98-107); CREATININE FOR GFR 0.65 MG/DL (0.55-1.30); GLOMERULAR FILTRATION RATE > 90.0 (>58); POTASSIUM SERUM 4.2 MMOL/L (3.5-5.1); SODIUM LEVEL 141 MMOL/L (136-145)
== END ==
LOC: M LAB 15:26
PROVIDERS: ATTEND Family Medicine
DX: E83.52 Hypercalcemia (principal); D50.9 Iron deficiency anemia, unspecified